=== PATIENT | female | born 1960 | race Caucasian/White ===

== ENCOUNTER 2023-06-13 10:03 | Outpatient (OUT) | payer MEDICARE, SELFPAY ==
--- NOTE | 2023-06-13 10:17 | XR_ITS ---
The [address] [address] Patient Name: MIGUEL ANGEL CAMERON MRN: [id number] date: 1960 Sex: F Assigned Patient Location: [facility] Current Patient Location: Accession/Order Number: [id number] Exam Date: 06/13/2023 10:28 Report Date: 06/14/2023 07:25 At the request of: SHANA MERCEDES Procedure: XR hip RT 2V w/ pelvis PROCEDURE: XR hip RT 2V w/ pelvis COMPARISON: None. HISTORY: Pain In Unspecified Hip M25.559 FINDINGS: BONES:No acute fracture or dislocation. Degenerative changes of the spine. Mild bilateral hip osteoarthropathy with joint space narrowing and marginal osteophyte formation, left greater than right SOFT TISSUES:Negative. No visible soft tissue swelling. EFFUSION:None visible. OTHER: Negative. XR/XR hip RT 2V w/ pelvis IMPRESSION: No acute abnormality Electronically authenticated by: SHANA WINTERS Date: 06/14/2023 07:25
== END 2023-06-13 10:04 | disposition home or self-care (01) ==
LOC: RAD 10:08
PROVIDERS: PCP Family Medicine; Visit Provider Family Medicine
DX: M25.551 Pain in right hip (principal)
CPT/HCPCS: 73502

== ENCOUNTER 2024-01-02 07:50 | Emergency (ER) | payer OTHER, SELFPAY ==
[2024-01-02 07:55] VITALS: BP 143/93; PULSE 80; TEMP 36.7; O2SAT 97; BMI 55.9
--- NOTE | 2024-01-02 08:55 | CT_ITS ---
The [address] [address] Patient Name: MIGUEL ANGEL CAMERON MRN: [id number] date: 1960 Sex: F Assigned Patient Location: ER Current Patient Location: ER Accession/Order Number: [id number] Exam Date: 01/02/2024 08:45 Report Date: 01/02/2024 09:08 At the request of: SHAHEEN BARNES Procedure: CT head/brain wo con EXAM: CT head/brain wo con, CT facial bones wo con HISTORY: fall last week, headache, nasal pain COMPARISON: CT head 05/27/2011. TECHNIQUE: Axial noncontrast CT imaging of the head and facial bones was performed with coronal and sagittal reformats. FINDINGS: Soft tissues: Unremarkable. Orbits: Globes intact. Bilateral alutiiq ocular lens replacements. No fractures or masses. Sinuses: Inferior right maxillary sinus mucosal retention cyst versus. Midface/nasal cavity: No fractures or masses. Moderate rightward nasal septal deviation with rightward projecting nasal septal spur which narrows the nasal passage. Maxilla/mandible: No fractures. Multiple dental caries are present. Periapical lucency involving multiple mandibular teeth. Maxillary teeth are absent. Calvarium/skull base: No evidence of acute fracture or destructive lesion. Mastoids and middle ears demonstrate no substantial mucosal disease. Brain: No acute intracranial hemorrhage. No acute large vascular territory infarct. No mass lesion or mass effect. No hydrocephalus. CT/CT head/brain wo con IMPRESSION: 1. No acute intracranial process. 2. No facial bone fracture. 3. Mandibular dental disease. Electronically authenticated by: SHIRA FERNANDES Date: 01/02/2024 09:08
--- NOTE | 2024-01-02 08:55 | CT_ITS ---
The [address] [address] Patient Name: MIGUEL ANGEL CAMERON MRN: [id number] date: 1960 Sex: F Assigned Patient Location: ER Current Patient Location: ER Accession/Order Number: [id number] Exam Date: 01/02/2024 08:45 Report Date: 01/02/2024 09:08 At the request of: SHAHEEN BARNES Procedure: CT facial bones wo con EXAM: CT head/brain wo con, CT facial bones wo con HISTORY: fall last week, headache, nasal pain COMPARISON: CT head 05/27/2011. TECHNIQUE: Axial noncontrast CT imaging of the head and facial bones was performed with coronal and sagittal reformats. FINDINGS: Soft tissues: Unremarkable. Orbits: Globes intact. Bilateral [place] ocular lens replacements. No fractures or masses. Sinuses: Inferior right maxillary sinus mucosal retention cyst versus. Midface/nasal cavity: No fractures or masses. Moderate rightward nasal septal deviation with rightward projecting nasal septal spur which narrows the nasal passage. Maxilla/mandible: No fractures. Multiple dental caries are present. Periapical lucency involving multiple mandibular teeth. Maxillary teeth are absent. Calvarium/skull base: No evidence of acute fracture or destructive lesion. Mastoids and middle ears demonstrate no substantial mucosal disease. Brain: No acute intracranial hemorrhage. No acute large vascular territory infarct. No mass lesion or mass effect. No hydrocephalus. CT/CT facial bones wo con IMPRESSION: 1. No acute intracranial process. 2. No facial bone fracture. 3. Mandibular dental disease. Electronically authenticated by: SHIRA FERNANDES Date: 01/02/2024 09:08
--- NOTE | 2024-01-02 08:56 | ED.GENADUL1 ---
HPI HPI - General Adult General Chief complaint: Extremity Injury, Upper Stated complaint: RIGHT ARM PAIN/HEADACHE Time Seen by Provider: 01/02/24 08:07 Source: patient Mode of arrival: walk-in History of Present Illness HPI narrative: 63-year-old female to the emergency department with chief complaint of pain throughout her right arm, facial pain/headache. Patient reports several days ago she had a fall. She was seen at [facility] ([place], [place]) and had a x-ray done of her left knee which was her chief complaint at that time. It was reported as normal. Since she's gone home she has had a severe headache, pain right between her eyes and in her nose. She reports that she has had pain in her right hand, wrist, elbow, shoulder since the fall. She is requesting imaging of these areas. She is otherwise at her baseline health. She denies any numbness, weakness, tingling, vision changes, chest pain, shortness of breath, abdominal pain, any other extremity pain. Related Data Previous Rx's ?Medication ?Instructions ?Recorded oxycodone 5 mg tablet 5 mg PO Q6H PRN pain 3 days #12 01/02/24 tabs Allergies Allergy/AdvReac Type Severity Reaction Status Date / Time acetaminophen [From Midol] Allergy Severe Verified 01/02/24 08:01 pamabrom [From Midol] Allergy Severe Verified 01/02/24 08:01 Penicillins Allergy Unknown Verified 01/02/24 08:01 Opioid HPI Opioid Management Most Recent Opioid Data: No Data to Display Review of Systems ROS Status of ROS 10 or more systems reviewed and unremarkable except as noted in history and below Exam Narrative Exam Narrative: VITALS: I have reviewed the triage vital signs. GENERAL: Well developed, well appearing adult in no acute distress. NEURO: Alert and oriented. Moves all extremities. Face is symmetric and expressive. EYES: PERRL. No scleral icterus or conjunctival injection. No discharge. HENT: Normocephalic, atraumatic. Hearing is grossly intact. Nares grossly patent and without discharge. Mucous membranes moist. NECK: No JVD. Patient moves neck without restriction. CARDIO: Rhythm regular. Normal rate. No murmur, rub, or gallop. Pulses equal bilaterally in the upper and lower extremity. No lower extremity edema. PULM: Lungs clear to auscultation in all villatoro. No wheezes, rales, or rhonchi. No conversational dyspnea. No splinting, stridor, or accessory muscle use. GI/: Abdomen is soft and non-tender. Normoactive bowel sounds. EXTREMITIES: Tenderness about the hyper thenar eminence of the right hand, right wrist, elbow, shoulder. No deformities. SKIN: Warm and dry. Normal turgor. No rash or lesions appreciated. PSYCH: Mood, affect, and interaction is appropriate to the setting. Constitutional Vital Signs, click to edit/add: Last Vital Signs Temp 98.0 F 01/02/24 07:55 Pulse 80 01/02/24 07:55 Resp 20 01/02/24 07:55 BP 143/93 H 01/02/24 07:55 Pulse Ox 97 01/02/24 07:55 O2 Del Method Room Air 01/02/24 07:55 Course Vital Signs Vital signs: Vital Signs Temperature 98.0 F 01/02/24 07:55 Pulse Rate 80 01/02/24 07:55 Respiratory Rate 20 01/02/24 07:55 Blood Pressure 143/93 H 01/02/24 07:55 Pulse Oximetry 97 01/02/24 07:55 Oxygen Delivery Method Room Air 01/02/24 07:55 Temperature 98.0 F 01/02/24 07:55 Pulse Rate 80 01/02/24 07:55 Respiratory Rate 20 01/02/24 07:55 Blood Pressure 143/93 H 01/02/24 07:55 Pulse Oximetry 97 01/02/24 07:55 Oxygen Delivery Method Room Air 01/02/24 07:55 Medical Decision Making [facility] Narrative Medical decision making narrative: 63-year-old female to the emergency department with chief complaint of severe headache, facial pain, right arm pain after fall. Cervical spine is cleared clinically however given the severe symptoms she continues to experience order CT scan of her head and facial bones. X-ray of the arm is ordered. She declines pain medication. Reports uses only natural medications, namely wild lettuce . CT head and facial bones are negative. X-rays without acute fracture. 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 I discussed findings with patient. She reports right shoulder findings are chronic for her. She is given orthopedic referral for this chronic discomfort/abnormal finding. She does not wish to sling. She is prescribed oxycodone for her discomfort should she not be able to obtain her natural medications. All questions were answered. Patient was discharged home. Medical Records Medical records reviewed: Yes I reviewed the patient's medical records Imaging Data CT scan - head: Radiologist's impression: ITS Impressions Facial Bones CT 01/02/24 08:55 IMPRESSION: 1. No acute intracranial process. 2. No facial bone fracture. 3. Mandibular dental disease. Electronically authenticated by: SHIRA FERNANDES Date: 01/02/2024 09:[address] 01/02/24 08:55 IMPRESSION: 1. No acute intracranial process. 2. No facial bone fracture. 3. Mandibular dental disease. Electronically authenticated by: SHIRA FERNANDES Date: 01/02/2024 09:08 Elbow X-Ray 01/02/24 09:14 IMPRESSION: Moderate shoulder joint effusion displacing the humeral head inferiorly without definitive fracture or dislocation. If an occult fracture is clinically suspected consider dedicated CT scan of the shoulder No acute fracture of the elbow, wrist or hand Electronically authenticated by: SHANA WINTERS Date: 01/02/2024 09:28 Hand X-Ray 01/02/24 09:14 IMPRESSION: Moderate shoulder joint effusion displacing the humeral head inferiorly without definitive fracture or dislocation. If an occult fracture is clinically suspected consider dedicated CT scan of the shoulder No acute fracture of the elbow, wrist or hand Electronically authenticated by: SHANA WINTERS Date: 01/02/2024 09:28 Shoulder X-Ray 01/02/24 09:14 IMPRESSION: Moderate shoulder joint effusion displacing the humeral head inferiorly without definitive fracture or dislocation. If an occult fracture is clinically suspected consider dedicated CT scan of the shoulder No acute fracture of the elbow, wrist or hand Electronically authenticated by: SHANA WINTERS Date: 01/02/2024 09:28 Wrist X-Ray 01/02/24 09:14 IMPRESSION: Moderate shoulder joint effusion displacing the humeral head inferiorly without definitive fracture or dislocation. If an occult fracture is clinically suspected consider dedicated CT scan of the shoulder No acute fracture of the elbow, wrist or hand Electronically authenticated by: SHANA WINTERS Date: 01/02/2024 09:28 Discharge Plan Discharge Stand Alone Forms: Portal Instructions Chief Complaint: Extremity Injury, Upper Clinical Impression: Concussion, Contusion Patient Disposition: Home, Self-Care Time of Disposition Decision: 10:05 Condition: Good Mode of Transportation: Private Vehicle Prescriptions / Home Meds: New oxycodone 5 mg tablet 5 mg PO Q6H PRN (Reason: pain) 3 Days Qty: 12 0RF Print Language: St Helenian Instructions: Concussion (ED), Bone Bruise (ED) Referrals: SHANA MERCEDES [Primary Care Provider] - 1 week Stephen Jackson MD [Physician] - 1 week
--- NOTE | 2024-01-02 09:14 | XR_ITS ---
The [address] [address] Patient Name: MIGUEL ANGEL CAMERON MRN: [id number] date: 1960 Sex: F Assigned Patient Location: ER Current Patient Location: ER Accession/Order Number: [id number] Exam Date: 01/02/2024 08:57 Report Date: 01/02/2024 09:28 At the request of: SHAHEEN BARNES Procedure: XR hand RT min 3V PROCEDURE: XR hand RT min 3V, XR elbow RT min 3V, XR wrist RT min 3V, XR shoulder RT min 2V COMPARISON: None. HISTORY: pain, fall FINDINGS: BONES:No acute fracture of the shoulder, elbow, wrist or hand. Severe degenerative changes at the first carpometacarpal joint with bone collapse and marginal osteophyte formation. Additional mild to moderate degenerative changes most significant along the first metacarpal phalangeal joint and distal interphalangeal joints. Low position of the humeral head in relation to the glenoid without definite fracture. Mild osteoarthropathy of acromioclavicular and glenohumeral joints SOFT TISSUES:Negative. No visible soft tissue swelling. EFFUSION:Moderate shoulder joint effusion OTHER: Negative. XR/XR hand RT min 3V IMPRESSION: Moderate shoulder joint effusion displacing the humeral head inferiorly without definitive fracture or dislocation. If an occult fracture is clinically suspected consider dedicated CT scan of the shoulder No acute fracture of the elbow, wrist or hand Electronically authenticated by: SHANA WINTERS Date: 01/02/2024 09:28
--- NOTE | 2024-01-02 09:14 | XR_ITS ---
The [address] [address] Patient Name: MIGUEL ANGEL CAMERON MRN: [id number] date: 1960 Sex: F Assigned Patient Location: ER Current Patient Location: ER Accession/Order Number: [id number] Exam Date: 01/02/2024 08:57 Report Date: 01/02/2024 09:28 At the request of: SHAHEEN BARNES Procedure: XR shoulder RT min 2V PROCEDURE: XR hand RT min 3V, XR elbow RT min 3V, XR wrist RT min 3V, XR shoulder RT min 2V COMPARISON: None. HISTORY: pain, fall FINDINGS: BONES:No acute fracture of the shoulder, elbow, wrist or hand. Severe degenerative changes at the first carpometacarpal joint with bone collapse and marginal osteophyte formation. Additional mild to moderate degenerative changes most significant along the first metacarpal phalangeal joint and distal interphalangeal joints. Low position of the humeral head in relation to the glenoid without definite fracture. Mild osteoarthropathy of acromioclavicular and glenohumeral joints SOFT TISSUES:Negative. No visible soft tissue swelling. EFFUSION:Moderate shoulder joint effusion OTHER: Negative. XR/XR shoulder RT min 2V IMPRESSION: Moderate shoulder joint effusion displacing the humeral head inferiorly without definitive fracture or dislocation. If an occult fracture is clinically suspected consider dedicated CT scan of the shoulder No acute fracture of the elbow, wrist or hand Electronically authenticated by: SHANA WINTERS Date: 01/02/2024 09:28
--- NOTE | 2024-01-02 09:14 | XR_ITS ---
The [address] [address] Patient Name: MIGUEL ANGEL CAMERON MRN: [id number] date: 1960 Sex: F Assigned Patient Location: ER Current Patient Location: ER Accession/Order Number: [id number] Exam Date: 01/02/2024 08:57 Report Date: 01/02/2024 09:28 At the request of: SHAHEEN BARNES Procedure: XR elbow RT min 3V PROCEDURE: XR hand RT min 3V, XR elbow RT min 3V, XR wrist RT min 3V, XR shoulder RT min 2V COMPARISON: None. HISTORY: pain, fall FINDINGS: BONES:No acute fracture of the shoulder, elbow, wrist or hand. Severe degenerative changes at the first carpometacarpal joint with bone collapse and marginal osteophyte formation. Additional mild to moderate degenerative changes most significant along the first metacarpal phalangeal joint and distal interphalangeal joints. Low position of the humeral head in relation to the glenoid without definite fracture. Mild osteoarthropathy of acromioclavicular and glenohumeral joints SOFT TISSUES:Negative. No visible soft tissue swelling. EFFUSION:Moderate shoulder joint effusion OTHER: Negative. XR/XR elbow RT min 3V IMPRESSION: Moderate shoulder joint effusion displacing the humeral head inferiorly without definitive fracture or dislocation. If an occult fracture is clinically suspected consider dedicated CT scan of the shoulder No acute fracture of the elbow, wrist or hand Electronically authenticated by: SHANA WINTERS Date: 01/02/2024 09:28
--- NOTE | 2024-01-02 09:14 | XR_ITS ---
The [address] [address] Patient Name: MIGUEL ANGEL CAMERON MRN: [id number] date: 1960 Sex: F Assigned Patient Location: ER Current Patient Location: ER Accession/Order Number: [id number] Exam Date: 01/02/2024 08:57 Report Date: 01/02/2024 09:28 At the request of: SHAHEEN BARNES Procedure: XR wrist RT min 3V PROCEDURE: XR hand RT min 3V, XR elbow RT min 3V, XR wrist RT min 3V, XR shoulder RT min 2V COMPARISON: None. HISTORY: pain, fall FINDINGS: BONES:No acute fracture of the shoulder, elbow, wrist or hand. Severe degenerative changes at the first carpometacarpal joint with bone collapse and marginal osteophyte formation. Additional mild to moderate degenerative changes most significant along the first metacarpal phalangeal joint and distal interphalangeal joints. Low position of the humeral head in relation to the glenoid without definite fracture. Mild osteoarthropathy of acromioclavicular and glenohumeral joints SOFT TISSUES:Negative. No visible soft tissue swelling. EFFUSION:Moderate shoulder joint effusion OTHER: Negative. XR/XR wrist RT min 3V IMPRESSION: Moderate shoulder joint effusion displacing the humeral head inferiorly without definitive fracture or dislocation. If an occult fracture is clinically suspected consider dedicated CT scan of the shoulder No acute fracture of the elbow, wrist or hand Electronically authenticated by: SHANA WINTERS Date: 01/02/2024 09:28
== END 2024-01-02 10:21 | disposition home or self-care (01) ==
PROVIDERS: Emergency Provider Student in an Organized Health Care Education/Training Program; PCP Family Medicine
DX: S06.0X0A Concussion without loss of consciousness, initial encounter (principal); T14.8XXA Other injury of unspecified body region, initial encounter; W19.XXXA Unspecified fall, initial encounter
CPT/HCPCS: 70450; 70486; 73030; 73080; 73110; 73130; 99285

== ENCOUNTER 2024-01-17 12:22 | Outpatient (OUT) | payer OTHER, SELFPAY ==
--- NOTE | 2024-01-17 12:26 | MR_ITS ---
[address] [address] Patient Name: MIGUEL ANGEL CAMERON MRN: [id number] date: 1960 Sex: F Assigned Patient Location: MRI Current Patient Location: MRI Accession/Order Number: [id number] Exam Date: 01/17/2024 13:14 Report Date: 01/17/2024 15:34 At the request of: SANJEEV CAMARILLO Procedure: MR knee LT wo con EXAMINATION: MR knee LT wo con HISTORY: left knee pain, unspecified chronicity M25.562 COMPARISON: No relevant comparison available. TECHNIQUE: A complete multi-planar MRI was performed. FINDINGS: MEDIAL COMPARTMENT MEDIAL MENISCUS: Suspect an oblique tear extending into the inferior surface of the posterior horn. Extrusion of the body of the meniscus from the joint space. CARTILAGE: Moderate thinning; no focal defect. BONES: Small periarticular degenerative osteophytes. No fracture or bone lesion. MCL AND MEDIAL CAPSULE: Grade I sprain of the medial collateral ligament. LATERAL COMPARTMENT LATERAL MENISCUS: Extrusion of the body meniscus from the joint space. CARTILAGE: Moderate thinning; no focal defect. BONES: Prominent periarticular degenerative osteophytes. No fracture or bone lesion. LCL/POSTEROLAT COMPLEX: Normal lateral collateral ligament, fascicles, lateral capsule and ligaments. ANTERIOR COMPARTMENT PATELLA: Mild subchondral edema near superior pole of the lateral facet. CARTILAGE: Marked cartilage thinning with near [id number] contact. TENDONS: Normal. EFFUSION: None. No synovitis or loose bodies. ACL: Normal appearing ligament. PCL: Normal appearing ligament. MENISCOFEMORAL: Normal meniscofemoral ligaments. OTHER: Large Looney's cyst 7.8 cm in length. MR/MR knee LT wo con IMPRESSION: 1. Limited examination due to patient body habitus. 2. Suspect oblique undersurface tear of medial meniscus posterior horn. 3. Joint space thinning bilaterally secondary to extrusion of the menisci from the joint spaces and moderate cartilage thinning. 4. Marked cartilage thinning of the patella with marked subchondral edema. 5. Large Looney's cyst. Electronically authenticated by: SANJEEV ALMANZA Date: 01/17/2024 15:34
== END 2024-01-17 12:23 | disposition home or self-care (01) ==
LOC: MRI 12:22
PROVIDERS: PCP Family Medicine; Visit Provider Orthopaedic Surgery
DX: M25.562 Pain in left knee (principal); M71.22 Synovial cyst of popliteal space [Baker], left knee
CPT/HCPCS: 73721

== ENCOUNTER 2024-09-06 12:46 | Emergency (ER) | payer OTHER, SELFPAY ==
[2024-09-06 12:54] VITALS: BP 138/86; PULSE 86; TEMP 36.6; O2SAT 97; BMI 58.4
--- OUTSIDE RECORDS SUMMARY | 2024-09-06 12:57 | XMS_ITS | CCD ---
Author Organization [facility] Care Team Providers Care Substance Abuse Specialist Name Role Phone Shana Mercedes Unavailable Shana Mercedes Admitting Unavailable Shana Mercedes Attending Unavailable Mago, Shana Primary Care Unavailable Mago, Shana Admitting Unavailable Mago, Shana Attending Unavailable MAGO, DR SALDANA Primary Care Unavailable CAMI, DR SANJEEV Rivera Consulting Unavailable SAMSA ., CRISTINE Admitting Unavailable SAMSA ., CRISTINE Attending Unavailable SAMSA ., CRISTINE Consulting Unavailable SAMSA ., CRISTINE Attending Unavailable MAGO, DR SALDANA Primary Care Unavailable SAMSA ., CRISTINE Admitting Unavailable SAMSA ., CRISTINE Consulting Unavailable MAGO, DR SALDANA Admitting Unavailable MAGO, DR SALDANA Primary Care Unavailable MAGO, DR SALDANA Consulting Unavailable MAGO, DR SALDANA Attending Unavailable SINGH, DR SHANA Anders Consulting Unavailable MAGO, DR SALDANA Primary Care Unavailable ANNELIESE ., HIRA Admitting Unavailable ANNELIESE ., HIRA Attending Unavailable ANNELIESE ., HIRA Consulting Unavailable SHANA MERCEDES Primary Care Unavailable VALENTIN VIRGEN Attending Unavailable VALENTIN VIRGEN Referring Unavailable SHANA MERCEDES Primary Care Unavailable Allergies Allergy Classification Reported Allergen(s) Allergy Type Date of Onset Reaction(s) Facility (20 sources) Acetaminophen Drug Allergy 01-04-20 24 throat swelling [facility] (17 sources) cat dander allergenic extract / cat skin extract Drug Allergy Unknown [employer] Other (17 sources) dog skin extract Drug Allergy Unknown [employer] Other (20 sources) Doxycycline; Translations: [DOXYCYCLINE] Drug Allergy 12-08-19 17 vomiting [facility] (17 sources) horse skin extract Drug Allergy Unknown [facility] [employer] Other (17 sources) Mushroom (edible) Propensity to adverse reactions GI upset [employer] Other (17 sources) Penicillin Drug Allergy vomiting [facility] [employer] Other (12 sources) Budesonide / formoterol Drug Allergy pt does not feel this worked well for her [facility] [employer] Other (5 sources) Penicillins; Translations: [PENICILLINS] Drug allergy (disorder) 03-03-20 13 vomiting [facility] (1 source) Midol Drug allergy (disorder) 03-03-20 13 [facility] (1 source) Acetaminophen / pamabrom; Translations: [ACETAMINOPHEN-PA MABROM] Drug Allergy 12-08-19 17 [facility] (4 sources) Mushroom (edible); Translations: [MUSHROOM] Propensity to adverse reactions to food (disorder) 01-14-20 17 GI upset [facility] (1 source) CAT/FELINE PRODUCTS; Translations: [CAT/FELINE PRODUCTS] Propensity to adverse reactions to drug (disorder) 01-14-20 17 [facility] (1 source) DOG HAIR STANDARDIZED ALLERGENIC EXTRACT; Translations: [DOG HAIR STANDARDIZED ALLERGENIC EXTRACT] Propensity to adverse reactions to drug (disorder) 01-14-20 17 [facility] (3 sources) Budesonide Drug Allergy 01-04-20 24 pt does not feel this worked well for her [facility] (3 sources) formoterol Drug Allergy 01-04-20 24 pt does not feel this worked well for her [facility] (3 sources) pamabrom Drug Allergy 01-04-20 24 throat swelling [facility] (3 sources) cat dander Allergy to substance 01-04-20 24 Unknown Reaction [facility] (3 sources) dog dander Allergy to substance 01-04-20 24 Unknown Reaction [facility] (3 sources) horse dander Allergy to substance 01-04-20 24 Unknown Reaction [facility] Medications Current Medications Medication Drug Class(es) Dates Sig (Normalized) Sig (Original) albuterol 0.83 mg/ml inhalation solution (20 sources) beta2-Adrenergic Agonist Start: 05-04-2024 Albuterol Sulfate Active 0 .ROUTE .COMPLEX 375 May 04, 2024 8:05am USE 1 VIAL IN NEBULIZER EVERY 4 HOURS NEEDED Start: 02-13-2024 take 1 puff(s) by in halation every four hours Albuterol Sulfate Active 2 PUFF INHALATION Every 4 hours February 13, 2024 3:45pm Start: 02-13-2024 End: 05-04-2024 Albuterol Sulfate Discontinu ed 2.5 MG INHALATION .COMPLEX February 13, 2024 3:44pm May 04, 2024 8:05am 2.5 mg inhaled PRN; Start: 01-04-2024 End: 02-13-2024 take 2 puff(s) by mouth every four hours as needed Albuterol Sulfate Discontinued 2 PUFF INHALATION Every 4 hours January 03, 2024 11:00pm February 13, 2024 3:48pm [employer]: INHALE 2 PUFFS BY MOUTH EVERY 4 HOURS NEEDED; Note: Source Status: Continue; Provider: Mago Saldana ( ) Start: 11-22-2023 End: 02-13-2024 Albuterol Sulfate Discontinu ed 0 .ROUTE .COMPLEX 375 November 22, 2023 1:34pm February 13, 2024 3:44pm USE 1 VIAL IN NEBULIZER EVERY 4 HOURS NEEDED Start: 11-22-2023 End: 11-22-2023 Albuterol Sulfate Discontinu ed 0 CNTNEBULIZ .Q4 hrs prn November 21, 2023 11:00pm November 22, 2023 1:35pm use 1 vial in nebulizer via continuous nebulization Q4 HRS PRN; FreeTextSig: USE 1 VIAL IN NEBULIZER EVERY 4 HOURS NEEDED; Note: Source Status: Start; Refills: 5; Qty: 375 Milliliter; Provider: Mago Saldana ( ) Albuterol Sulfat e (2.5 MG/3ML) 0.083% USE 1 VIAL IN NEBULIZER EVERY 4 HOURS NEEDED for 21 Active take 2 puff(s) by mo ut every four hours as needed Albuterol Sulfate HFA 108 (90 Base) MCG/ACT INHALE 2 PUFFS BY MOUTH EVERY 4 HOURS NEEDED Active Albuterol Sulfat e (2.5 MG/3ML) 0.083% USE 1 VIAL IN NEBULIZER EVERY 4 HOURS NEEDED for 21 Active take 2 puff(s) by mo uth every four hours as needed Albuterol Sulfate HFA 108 (90 Base) MCG/ACT INHALE 2 PUFFS BY MOUTH EVERY 4 HOURS NEEDED Active take 2 puff(s) by mo uth every four hours as needed Albuterol Sulfate HFA 108 (90 Base) MCG/ACT INHALE 2 PUFFS BY MOUTH EVERY 4 HOURS NEEDED Active take 3 mL by inhalat ion every four hours as needed Albuterol Sulfate 0.083% 3 ml Inhalation q4 hrs prn prn Active take 3 mL by inhalat ion every four hours as needed Albuterol Sulfate 0.083% 3 ml Inhalation q4 hrs prn Not-Taking take 2 puff(s) by mo uth every four hours as needed Ventolin HFA 108MCG/A INHALE TWO PUFFS BY MOUTH EVERY 4 HOURS NEEDED Active take 3 mL by inhalat ion every four hours as needed Albuterol Sulfate 0.083% 3 ml Inhalation q4 hrs prn Active aspirin 81 mg delayed release oral tablet (3 sources) Platelet Aggregation Inhibitor, Nonsteroidal Anti-inflammatory Drug Start: 07-29-2021 take 1 tablet by mouth once daily at mealtime Aspirin EC 81 MG 1 tablet Orally qd with food Jul, Active Start: 07-29-2021 take 1 tablet by pastor once daily at mealtime Aspirin EC 81 MG 1 tablet Orally qd with food Jul, Not-Taking azithromycin 250 mg oral tablet (7 sources) Macrolide Antimicrobial Start: 09-07-2022 Azithromycin 250 MG 2 tablets on day 1 Orally then take 1 tablet daily on days 2-5 for 5 days Oct, Active Start: 05-12-2022 Azithromycin 2 50 MG 2 tablets on day 1 Orally then take 1 tablet daily on days 2-5 for 5 days Apr, Not-Taking Calcium & Magnesium Carbonates (14 sources) Calcium & Magnes ium Carbonates Active celecoxib 200 mg oral capsule (20 sources) Nonsteroidal Anti-inflammatory Drug Start: take 1 capsule by mouth once daily at mealtime Celecoxib Active 0 .ROUTE .COMPLEX March 30, 2024 7:19am TAKE 1 CAPSULE BY MOUTH ONCE DAILY WITH FOOD Start: 01-04-2024 End: 03-30-2024 take 200 mg by mouth once daily Celecoxib Discontinued 200 MG PO Daily February 13, 2024 3:45pm March 30, 2024 7:19am take 1 capsule by mo uth once daily at mealtime Celecoxib 200 MG TAKE 1 CAPSULE BY MOUTH ONCE DAILY WITH FOOD for 30 days Active cephalexin 500 mg oral capsule (3 sources) Cephalosporin Antibacterial Start: 07-17-2024 take 500 mg by mouth three times daily Cephalexin Active 500 MG PO Three times daily 01 04July 17, 2024 12:00am Start: 08-10-2022 take 2 capsules by m outh every twelve hours Cephalexin 500 MG 2 capsules Orally bid Jul, Active furosemide 20 mg oral tablet (20 sources) Loop Diuretic Start: 02-21-2024 End: 07-17-2024 take 1 tablet by mouth once daily Furosemide Active 0 .ROUTE .COMPLEX July 17, 2024 4:08pm Take 1 tablet by mouth once daily Start: 01-04-2024 End: 02-21-2024 take 1 tablet by mouth once daily Furosemide Discontinued 20 MG PO Daily January 03, 2024 11:00pm February 21, 2024 12:06pm FreeTextSig: Take 1 tablet by mouth once daily for 30 days; Note: Source Status: Start; Refills: 5; Qty: 30 Tablet; Provider: Mago Saldana ( ) Start: 07-29-2021 take 1 tablet by pastor th every twenty-four hours Lasix 20 MG 1 tablet Orally Once a day prn Jul, Active levothyroxine sodium 0.1 mg oral tablet (20 sources) l-Thyroxine Start: 01-04-2024 End: 02-13-2024 take 1 tablet by mouth in the morning Levothyroxine Active 100 MCG PO .COMPLEX February 13, 2024 3:45pm 100 mcg orally TAKE 1 TABLET BY MOUTH IN THE MORNING ON AN EMPTY STOMACH; Levothyroxine So dium 100 MCG TAKE 1 TABLET BY MOUTH IN THE MORNING ON AN EMPTY STOMACH FOR 90 DAYS for 90 days Active take 1 tablet by mouth in the mo rning Euthyrox 100 MCG TAKE 1 TABLET BY MOUTH IN THE MORNING ON AN EMPTY STOMACH for 90 days Active take 1 tablet by mouth in the mo rning Euthyrox 112 MCG TAKE 1 TABLET BY MOUTH IN THE MORNING ON AN EMPTY STOMACH Active nitrofurantoin, macrocrystals 25 mg / nitrofurantoin, monohydrate 75 mg oral capsule (5 sources) Nitrofuran Antibacterial Start: 10-17-2020 take 1 capsule by mouth twice daily at mealtime Macrobid 100 MG 1 capsule Orally bid with food for 7 days Nov, Active omeprazole 20 mg delayed release oral capsule (20 sources) Proton Pump Inhibitor Start: 02-21-2024 take 1 capsule by mouth once daily at mealtime Omeprazole Active 0 .ROUTE .COMPLEX February 21, 2024 12:04pm TAKE 1 CAPSULE BY MOUTH ONCE DAILY 15 MINUTES PRIOR TO THE FIRST MEAL OF THE DAY Start: 01-04-2024 End: 02-21-2024 take 1 capsule by mouth once daily at mealtime Omeprazole Discontinued 20 MG PO .COMPLEX February 13, 2024 3:46pm February 21, 2024 12:06pm 20 mg orally TAKE 1 CAPSULE BY MOUTH ONCE DAILY 15 MINUTES PRIOR TO THE FIRST MEAL OF THE DAY Omeprazole 20 MG TAKE 1 CAPSULE BY MOUTH ONCE DAILY 15 MINUTES PRIOR TO THE FIRST MEAL OF THE DAY. for 30 Active oxyCODONE hydrochloride 5 mg oral tablet (5 sources) Opioid Agonist Start: 04-23-2024 End: 07-17-2024 take 5 mg by mouth once daily at bedtime Oxycodone Active 5 MG PO Daily at bedtime 14 July 17, 2024 Start: 01-04-2024 End: 02-13-2024 take 5 mg by mouth once daily at bedtime Oxycodone Discontinued 5 MG PO Daily at bedtime January 04, 2024 February 13, 2024 3:44pm microencapsulated potassium chloride 10 meq extended release oral tablet (20 sources) Start: 07-17-2024 take 2 tablets by mouth once daily, then take 10 tablets by mouth at mealtime Potassium Chloride Active 0 PO Daily 60 July 17, 2024 4:06pm Take 2 of the 10 MEQ tablets by mouth with food Start: 06-18-2024 End: 07-17-2024 take 1 tablet by mouth once daily at mealtime Potassium Chloride Discontinued 0 .ROUTE .COMPLEX July 02, 2024 9:15am July 17, 2024 4:09pm Take 1 tablet by mouth once daily with food Start: 02-21-2024 End: 06-18-2024 take 1 tablet by mouth once daily at mealtime Potassium Chloride Discontinued 0 .ROUTE .COMPLEX February 21, 2024 12:06pm June 18, 2024 10:48am Take 1 tablet by mouth once daily with food Start: 01-04-2024 End: 02-21-2024 take 1 tablet by mouth once daily at mealtime Potassium Chloride Discontinued 10 MEQ PO Daily February 13, 2024 3:49pm February 21, 2024 12:06pm TAKE 1 TABLET BY MOUTH ONCE DAILY WITH FOOD FOR 30 DAY Start: 07-29-2021 take 1 tablet by pastor th every twenty-four hours Klor-Con M10 10 MEQ 1 tablet with food Orally qd prn Jul, Active take 1 tablet by pastor th once daily at mealtime Potassium Chloride Isabel ER 10 MEQ TAKE 1 TABLET BY MOUTH ONCE DAILY WITH FOOD FOR 30 DAYS for 30 Active quercetin 250 mg oral tablet (7 sources) Quercetin 250 MG 1 tablet Orally prn Active Quercetin 250 MG 1 tablet Orally prn Active tiZANidine 4 mg oral tablet (20 sources) Central alpha-2 Adrenergic Agonist Start: 05-01-2024 Tizanidine Active 0 .ROUTE .COMPLEX May 01, 2024 10:34am TAKE 1 TABLET BY MOUTH EVERY 8 TO 12 HOURS NEEDED FOR 10 DAYS Start: 01-04-2024 End: 05-01-2024 Tizanidine Discontinued 4 MG PO .Q 8-12h February 13, 2024 3:37pm May 01, 2024 10:34am TAKE 1 TABLET BY MOUTH EVERY 8 TO 12 HOURS NEEDED FOR 10 DAYS tiZANidine HCl 4 MG TAKE 1 TABLET BY MOUTH EVERY 8 TO 12 HOURS NEEDED FOR 10 DAYS for 10 Active Completed/Discontinued Medications Medication Drug Class(es) Dates Sig (Normalized) Sig (Original) 24 hr dilTIAZem hydrochloride 120 mg extended release oral capsule (3 sources) Calcium Channel Brinda Start: 07-29-2021 take 1 capsule by mouth every twenty-four hours Cardizem CD 120 MG 1 capsule Orally Once a day Jul, Not-Taking 24 hr isosorbide mononitrate 30 mg extended release oral tablet (3 sources) Nitrate Vasodilator Start: 07-29-2021 take 1 tablet by mouth every twenty-four hours Isosorbide Mononitrate ER 30 MG 1 tablet in the morning Orally Once a day Jul, Not-Taking pravastatin sodium 10 mg oral tablet (17 sources) HMG-CoA Reductase Inhibitor Start: 07-20-2016 take 1 tablet by mouth once daily at bedtime Pravastatin Sodium 10 MG 1 tablet Orally qd hs for 30 day(s) Jul, Not-Taking/PRN predniSONE 20 mg oral tablet (2 sources) Start: 09-07-2022 predniSONE 20 MG take 3 tablets Orally x3 days, then 2 tabs x3 days then 1 tab a day x3 days then take 1/2 tablet x4 days with food or milk for 13 days Aug, Not-Taking Problems Active Problems Problem Classification Problem Date Documented Da te Episodic/Chronic Abdominal pain (1 source) Unspecified abdominal pain Episodic Asthma (20 sources) Asthma; Translations: [Unspecified asthma, uncomplicated] Onset: 1 Resolved: 2 Chronic Attention-deficit, conduct, and disruptive behavior disorders (17 sources) Attention deficit hyperactivity disorder; Translations: [Attention-deficit hyperactivity disorder, unspecified type] Chronic Disorders of lipid metabolism (19 sources) Hyperlipidemia; Translations: [Hyperlipidemia, unspecified] Onset: 1 Resolved: 2 Chronic E Codes: Fall (5 sources) Fall; Translations: [Unspecified fall, initial encounter] 01-04-2024 Episodic E Codes: Fall (1 source) Fall Onset: 4 Esophageal disorders (19 sources) Gastroesophageal reflux disease; Translations: [Gastro-esophageal reflux disease without esophagitis] Onset: 1 Resolved: 2 Chronic Fever of unknown origin (1 source) Fever, unspecified Episodic Genitourinary symptoms and ill-defined conditions (20 sources) Incontinence; Translations: [Unspecified urinary incontinence] Onset: 2 Resolved: 2 Chronic Genitourinary symptoms and ill-defined conditions (6 sources) Nocturia; Translations: [Frequency of micturition] Onset: 1 Resolved: 2 Episodic Intracranial injury (5 sources) Concussion injury of body structure; Translations: [Concussion] 01-04-2024 Episodic Open wounds of head; neck; and trunk (2 sources) Laceration - injury; Translations: [Laceration] 07-17-2024 Episodic Other connective tissue disease (1 source) Pain in left arm Episodic Other connective tissue disease (3 sources) Pain in left lower limb; Translations: [Pain in left leg] 01-04-2024 Episodic Other connective tissue disease (2 sources) Pain in left leg; Translations: [Pain in limb] 01-04-2024 Episodic Other connective tissue disease (2 sources) Synovial cyst of knee; Translations: [Synovial cyst of popliteal space [Looney], unspecified knee] 02-13-2024 Episodic Other connective tissue disease (1 source) Synovial cyst of popliteal space [Looney], unspecified knee; Translations: [Synovial cyst of popliteal space] 02-13-2024 Episodic Other gastrointestinal disorders (17 sources) Incontinence of feces; Translations: [Full incontinence of feces] Episodic Other lower respiratory disease (17 sources) Restrictive lung disease; Translations: [Other disorders of lung] Episodic Other lower respiratory disease (17 sources) Multiple nodules of lung; Translations: [Other nonspecific abnormal finding of lung field] Episodic Other nervous system disorders (14 sources) Ulnar nerve entrapment; Translations: [Lesion of ulnar nerve, 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 Other nervous system disorders (14 sources) Skin sensation disturbance; Translations: [Paresthesia of skin] Episodic Other non-traumatic joint disorders (2 sources) Pain in left shoulder Episodic Other non-traumatic joint disorders (1 source) Pain in unspecified hip Episodic Other non-traumatic joint disorders (7 sources) Knee pain; Translations: [Pain in unspecified knee] Onset: 4 01-04-2024 Episodic Other non-traumatic joint disorders (3 sources) Shoulder pain; Translations: [Pain in unspecified shoulder] 01-04-2024 Episodic Other non-traumatic joint disorders (2 sources) Pain in unspecified shoulder; Translations: [Pain in joint, shoulder region] 01-04-2024 Episodic Other nutritional; endocrine; and metabolic disorders (1 source) Obesity, unspecified; Translations: [OBESITY UNSPECIFIED] Onset: 2 Chronic Other nutritional; endocrine; and metabolic disorders (1 source) Body mass index (BMI) 50.0-59.9, adult; Translations: [BODY MASS INDEX BMI 50.0-59.9 ADULT] Onset: 2 Chronic Other nutritional; endocrine; and metabolic disorders (2 sources) Abnormal weight gain Onset: 2 Resolved: 2 Episodic Other screening for suspected conditions (not mental disorders or infectious disease) (3 sources) Encounter for screening mammogram for malignant neoplasm of breast; Translations: [Patient encounter status] Onset: 1 Resolved: 1 Episodic Other upper respiratory disease (17 sources) Rhinitis; Translations: [Chronic rhinitis] Chronic Other upper respiratory infections (2 sources) Acute sinusitis, unspecified Onset: 2 Resolved: 2 Episodic Residual codes; unclassified (5 sources) Edema, unspecified; Translations: [Edema] Onset: 1 Resolved: 2 Episodic Residual codes; unclassified (3 sources) Edema; Translations: [Edema, unspecified] 01-04-2024 Episodic Skin and subcutaneous tissue infections (2 sources) Cellulitis; Translations: [Cellulitis, unspecified] 07-17-2024 Episodic Superficial injury; contusion (1 source) Contusion of left knee, initial encounter; Translations: [Contusion of left knee, initial encounter] Onset: 4 Episodic Thyroid disorders (20 sources) Hypothyroidism; Translations: [Hypothyroidism, unspecified] Onset: 1 Resolved: 2 Chronic Unclassified (1 source) N30.90 - Cystitis, unspecified without hematuria; Translations: [N30.90 - Cystitis, unspecified without hematuria] Onset: 2 Unclassified (3 sources) LOW BACK PAIN, UNSPECIFIED; Translations: [LOW BACK PAIN, UNSPECIFIED] Onset: 2 Unclassified (1 source) Fall, Knee Pain Onset: 4 Past or Other Problems Problem Classification Problem Date Documented Da te Episodic/Chronic Headache; including migraine (1 source) Headache; including migraine Onset: 05-12-2022 Resolved: 05-12-2022 Malaise and fatigue (1 source) Other fatigue Onset: 11-17-2021 Resolved: 11-17-2021 Episodic Nonspecific chest pain (1 source) Chest pain, unspecified Onset: 07-29-2021 Resolved: 07-29-2021 Episodic Other aftercare (2 sources) Other predatory animal exterminator (current) drug therapy Onset: 07-29-2021 Resolved: 01-28-2022 Episodic Other and unspecified benign neoplasm (1 source) Melanocytic nevi, unspecified Onset: 11-17-2021 Resolved: 11-17-2021 Episodic Other connective tissue disease (1 source) Pain in right arm Onset: 07-29-2021 Resolved: 07-29-2021 Episodic Other lower respiratory disease (5 sources) Other nonspecific abnormal finding of lung field; Translations: [OTH NONSPECIFIC ABN FIND LNG FIELD] Onset: 05-12-2022 Resolved: 05-12-2022 Episodic Other non-traumatic joint disorders (1 source) Pain in right shoulder Onset: 01-28-2022 Resolved: 01-28-2022 Episodic Other nutritional; endocrine; and metabolic disorders (1 source) Abnormal weight loss Onset: 07-29-2021 Resolved: 07-29-2021 Episodic Spondylosis; intervertebral disc disorders; other back problems (3 sources) Cervicalgia Onset: 07-29-2021 Resolved: 04-23-2022 Episodic Unclassified (2 sources) Cough R05.9 Unclassified (1 source) LOW BACK PAIN, UNSPECIFIED; Translations: [LOW BACK PAIN, UNSPECIFIED] Onset: 07-08-2022 Urinary tract infections (2 sources) Cystitis, unspecified without hematuria; Translations: [Urinary tract infection, site not specified] Onset: 11-17-2021 Resolved: 11-17-2021 Episodic Results Test Name Value Interpretation Reference Range Facility XR KNEE LT MIN 4 VWSon 12-28 XR KNEE LT MIN 4 VWS XR KNEE LT MIN 4 VW S History: with sunrise. fall landed directly on knee. fall from standing Exam/Technique: AP, lateral, patellar and oblique views of the left knee. Comparison: None available. Findings: There is no evidence of fracture, malalignment or acute bony abnormality. Osteopenia. DJD with spur formation. Loose bodies. IMPRESSION: Degenerative changes. Finalized by Harris Hogan MD on 12/29/2023 1:03 PM [facility] XR SHOULDER LT 2V or >on XR SHOULDER LT 2V or > EXAM: XR SHOULDER LT 2V or > HISTORY: Pain of left shoulder joint for the past month. COMPARISON: None. TECHNIQUE: 3 views of the left shoulder were obtained. FINDINGS: There is no evidence of an acute fracture or dislocation. There is mild to moderate narrowing of the acromioclavicular joint accompanied by small osteophytes. There is mild eccentric narrowing along the inferior aspect of the glenohumeral joint accompanied by small osteophytes. No focal osseous abnormality is otherwise identified. The acromiohumeral interval is maintained. No abnormal soft tissue calcifications are present. IMPRESSION: Degenerative changes are seen at the joints of the left shoulder. There is no evidence of an acute fracture or dislocation. No abnormal soft tissue calcifications are present. Electronically authenticated by: CELINA HENSON Date: 2023-02-09 15:12 Normal [facility] Automated erythrocytes count in urine sediment (number/area)Ordered By: Shana Mercedes on 08-10-2022 RBC Auto (Urine sed) [#/Area] 3-4 [HPF] 0-4 [facility] Automated leukocytes count i n urine sediment (number/area)Ordered By: Shana Mercedes on 08-10-2022 WBC Auto (Urine sed) [#/Area] 20-49 [HPF] 0-4 [facility] Bilirubin Test strip Ql (U)O rdered By: Shana Mercedes on 08-10-2022 Bilirubin Ql (U) Negative Negative [facility] Color Auto (U)Ordered By: Troy Mercedes on 08-10-2022 Color (U) Yellow Yellow [facility] Dipstick [employer] Microscopicon Dipstick & Microscopic [facility] [employer] Other [facility]stick [employer] 1 10-10-2021 Appearance (U) Clear Normal Clear [facility] Comment on above: Order Comment: Name Collection Type:: Collection Method Unknown Performed By: #### A DDONUAPLUS, CUU #### [facility] [address] [id number] [place] Bacteria,Urine None Seen Normal None Seen [facility] Comment on above: Order Comment: Name Collection Type:: Collection Method Unknown Performed By: #### A DDNELYUAPLUS, CUU #### [facility] [address] [id number] [place] Bilirubin,Urine Negative Normal Negative [facility] Comment on above: Order Comment: Name Collection Type:: Collection Method Unknown Performed By: #### A DDNELYUAPLUS, CUU #### [facility] [address] [place] [address] [place] Color (U) Yellow Normal Yellow [facility] Comment on above: Order Comment: Name Collection Type:: Collection Method Unknown Performed By: #### A DDONUAPLUS, CUU #### [facility] [address] [id number] [place] Glucose Ql (U) Normal Normal Normal [facility] Comment on above: Order Comment: Name Collection Type:: Collection Method Unknown Performed By: #### A DDONUAPLUS, CUU #### [place] [address] [place] Hyaline Casts,Urine None Seen Normal 0-8 [facility] Comment on above: Order Comment: Name Collection Type:: Collection Method Unknown Result Comment: PERF ORMED BY: [place] [address] PATHOLOGIST FLORIST SHO RODRIGUEZ M.D. Performed By: #### A DDONUAPLUS, CUU #### [facility] [address] [place] [address] [place] Ketones Ql (U) Negative Normal Negative [facility] Comment on above: Order Comment: Name Collection Type:: Collection Method Unknown Performed By: #### A DDONUAPLUS, CUU #### [facility] [address] [place] [address] [place] Leukocyte esterase Test strip Ql (U) 3+ High Negative [facility] Comment on above: Order Comment: Name Collection Type:: Collection Method Unknown Performed By: #### A DDONUAPLUS, CUU #### [facility] [address] [place] [address] [place] Nitrite,Urine Negative Normal Negative [facility] Comment on above: Order Comment: Name Collection Type:: Collection Method Unknown Performed By: #### A DDONUAPLUS, CUU #### [facility] [address] [place] [address] [place] Occult Blood,Urine Negative Normal Negative [facility] Comment on above: Order Comment: Name Collection Type:: Collection Method Unknown Result Comment: PERF ORMED BY: [place] [address] PATHOLOGIST FLORIST SHO RODRIGUEZ M.D. Performed By: #### A DDONUAPLUS, CUU #### [address] pH (U) 6.0 [pH] Normal 5.0-9.0 [facility] Comment on above: Order Comment: Name Collection Type:: Collection Method Unknown Performed By: #### A DDONUAPLUS, CUU #### [address] Protein,Urine Negative Normal Negative [facility] Comment on above: Order Comment: Name Collection Type:: Collection Method Unknown Performed By: #### A DDONUAPLUS, CUU #### [address] RBC,Urine 3-4 Normal 0-4 [facility] Comment on above: Order Comment: Name Collection Type:: Collection Method Unknown Performed By: #### A DDONUAPLUS, CUU #### [address] Specificy [place],Urine 1.019 Normal 1.001-1.030 [facility] Comment on above: Order Comment: Name Collection Type:: Collection Method Unknown Performed By: #### A DDONUAPLUS, CUU #### [address] Squamous Epithelial Cell,Urine 0-1 Normal 0-2 [facility] Comment on above: Order Comment: Name Collection Type:: Collection Method Unknown Performed By: #### A DDONUAPLUS, CUU #### [address] Urobilinogen,Urine Normal Normal Normal [facility] Comment on above: Order Comment: Name Collection Type:: Collection Method Unknown Performed By: #### A DDONUAPLUS, CUU #### [address] WBC,Urine 20-49 High 0-4 [facility] Comment on above: Order Comment: Name Collection Type:: Collection Method Unknown Performed By: #### A DDONUAPLUS, CUU #### [facility] [address] Ketones Auto test strip (U) [Mass/Vol]Ordered By: Shana Mercedes on 08-10-2022 Ketones (U) [Mass/Vol] Negative Negative [facility] - UrinalysisOrder ed By: Shana Mercedes on 08-10-2022 Hyaline casts LM Ql (Urine sed) None seen [LPF] 0-8 [facility] Nitrite Test strip Ql (U)Ord ered By: Shana Mercedes on 08-10-2022 Nitrite Ql (U) Negative Negative [facility] Protein Auto test strip (U) [Mass/Vol]Ordered By: Shana Mercedes on 08-10-2022 Protein (U) [Mass/Vol] Negative Negative [facility] Specific gravity Auto test s trip (U) [Rel density]Ordered By: Shana Mercedes on 08-10-2022 Specific gravity (U) [Rel density] 1.019 1.001-1.030 [facility] Squamous epithelial cells de tection in urine sediment by light microscopyOrdered By: Shana Mercedes on 08-10-2022 Epithelial cells.squamous LM Ql (Urine sed) 0-1 [HPF] 0-2 [facility] Urine 10 SGon 08-10-2022 Albumin DL <= 20 mg/L (U) [Mass/Vol] Negative [employer] Other Albumin DL <= 20 mg/L (U) [Mass/Vol] large [employer] Other pH (U) 5.0 [pH] [employer] Other Urine 10 SG Negative [employer] Other Urine 10 SG 1.015 [employer] Other Urine 10 SG moderate [employer] Other Urine 10 SG 0.2 [employer] Other Urine Cultureon 08-10-2022 Bacteria identified Cx Nom (U) 30,000 colonies/ml mixed bacterial skin contaminants 2 Days PERFORMED BY: [place] [address] PATHOLOGIST FLORIST SHO RODRIGUEZ M.D. Normal [facility] Comment on above: Performed By: #### A DDONUAPLUS, CUU #### [address] Bacteria identified Cx Nom (U) [employer] Other Urine bacteria detection by automated methodOrdered By: Shana Mercedes on 08-10-2022 Bacteria Auto Ql (U) None seen None Seen [facility] Urine clarity by refractomet ry automatedOrdered By: Shana Mercedes on 08-10-2022 Clarity Refractometry automated (U) Clear Clear [facility] Urine glucose measurement by automated test strip (mass/volume)Ordered By: Shana Mercedes on 08-10-2022 Glucose Auto test strip (U) [Mass/Vol] Normal mg/dL Normal [facility] Urine hemoglobin detection b y automated test stripOrdered By: Shana Mercedes on 08-10-2022 Hemoglobin Auto test strip Ql (U) Negative Negative [facility] Urine leukocyte esterase det ection by automated test stripOrdered By: Shana Mercedes on 08-10-2022 Leukocyte esterase Auto test strip Ql (U) 3+ Negative [facility] Urobilinogen Auto test strip (U) [Mass/Vol]Ordered By: Shana Mercedes on 08-10-2022 Urobilinogen (U) [Mass/Vol] Normal mg/dL Normal [facility] pH Auto test strip (U)Ordere d By: Shana Mercedes on 08-10-2022 pH (U) 6.0 [pH] 5.0-9.0 [facility] AMYLASEon 07-08-2022 Amylase [Catalytic activity/Vol] 41 U/L Normal 25-115 [facility] Comment on above: Performed By: #### C MP, MOO, LIPA #### [facility] [address] [address] [address] Christo Mota CBC AUTO DIFFon 07-08-2022 BASO # 0.1 103/ul Normal 0.0-0.1 [facility] Comment on above: Performed By: #### C MOO DIEHL LIPA #### [facility] [address] [place] [address] Dr. Christo Mota Basophils/100 WBC (Bld) 1.2 % Normal 0.2-2.0 [facility] Comment on above: Performed By: #### C MOO DIEHL LIPA #### [facility] [address] [place] [address] Dr. Christo Mota EO # 0.1 103/ul Normal 0.0-0.7 [facility] Comment on above: Performed By: #### C MOO DIEHL LIPA #### [facility] [address] [place] [address] Dr. Christo Mota Eosinophils/100 WBC (Bld) 1.8 % Normal 0.9-7.0 [facility] Comment on above: Performed By: #### C MOO DIEHL LIPA #### [facility] [address] [place] [address] Dr. Christo Mota Erythrocyte distribution width (RBC) [Ratio] 14.0 % Normal 11.0-15.0 [facility] Comment on above: Performed By: #### C MOO DIEHL LIPA #### [facility] [address] [place] [address] Dr. Christo Mota Hematocrit (Bld) [Volume fraction] 41.4 % Normal 36.0-48.0 [facility] Comment on above: Performed By: #### C MOO DIEHL LIPA #### [facility] [address] [place] [address] Dr. Christo Mota Hemoglobin (Bld) [Mass/Vol] 13.5 g/dL Normal 12.0-16.0 [facility] Comment on above: Performed By: #### C MOO DIEHL LIPA #### [facility] [address] [place] [address] Dr. Christo Mota IG # 0.03 10e3/ul Normal 0.00-0.03 [facility] Comment on above: Performed By: #### C MP, MOO, LIPA #### [facility] [address] [address] [address] Christo Mota IG % 0.4 % Normal 0.0-0.5 [facility] Comment on above: Performed By: #### C MP, MOO, LIPA #### [facility] [address] [address] [address] Christo Mota LYMPH # 2.0 103/ul Normal 1.2-3.8 [facility] Comment on above: Performed By: #### C MP, MOO, LIPA #### [facility] [address] [address] [address] Christo Mota Lymphocytes/100 WBC (Bld) 27.8 % Normal 20.5-60.0 [facility] Comment on above: Performed By: #### C MP, MOO, LIPA #### [facility] [address] [place] [address] Dr. Christo Mota MANUAL DIFF REQ NO Normal [facility] Comment on above: Performed By: #### C MP, MOO, LIPA #### [facility] [address] [place] [address] Dr. Christo Mota MCH (RBC) [Entitic mass] 28.1 pg Normal 26.7-34.0 [facility] Comment on above: Performed By: #### C MP, MOO, LIPA #### [facility] [address] [place] [address] Dr. Christo Mota MCHC (RBC) [Mass/Vol] 32.6 g/dL Normal 29.9-35.2 [facility] Comment on above: Performed By: #### C MP, MOO, LIPA #### [facility] [address] [place] [address] Dr. Christo Mota MCV (RBC) [Entitic vol] 86.1 fL Normal 81.0-99.0 [facility] Comment on above: Performed By: #### C MP, MOO, LIPA #### [facility] [address] [place] [address] Dr. Christo Mota MONO # 0.4 103/ul Normal 0.3-0.8 [facility] Comment on above: Performed By: #### C MOO DIEHL, LIPA #### [facility] [address] [place] [address] Dr. Christo Mota Monocytes/100 WBC (Bld) 6.0 % Normal 1.7-12.0 [facility] Comment on above: Performed By: #### C FAZAL MOO, LIPA #### [facility] [address] [place] [address] Dr. Christo Mota NEUT # 4.6 103/ul Normal 1.4-6.5 [facility] Comment on above: Performed By: #### C MOO DIEHL LIPA #### [facility] [address] [place] [address] Dr. Christo Mota Neutrophils/100 WBC (Bld) 62.8 % Normal 43.0-75.0 [facility] Comment on above: Performed By: #### C MOO DIEHL LIPA #### [facility] [address] [place] [address] Dr. Christo Mota Platelet mean volume (Bld) [Entitic vol] 9.2 fL Critically low 9.5-13.5 [facility] Comment on above: Performed By: #### C MOO DIEHL LIPA #### [facility] [address] [place] [address] Dr. Christo Mota PLT 274 103/ul Normal 150-450 [facility] Comment on above: Performed By: #### C MOO DIEHL, LIPA #### [facility] [address] [place] [address] Dr. Christo Mota RBC 4.81 106/ul Normal 4.20-5.40 [facility] Comment on above: Performed By: #### C MOO DIEHL LIPA #### [facility] [address] [place] [address] Dr. Christo Mota WBC 7.3 103/ul Normal 4.0-11.0 [facility] Comment on above: Performed By: #### C MOO DIEHL, LIPA #### [facility] [address] [place] [address] ABD/PELVIS WO CONon 07-08 CT ABD/PELVIS WO CON EXAMINATION: CT ABD/PELVIS WO CON, 07/08/2022 10:09 AM EDT HISTORY: CALCULUS OF KIDNEY COMPARISON: None. TECHNIQUE: CT scan of the abdomen and pelvis was performed without IV contrast. CT dose reduction technique was used, including Automated Exposure Control. FINDINGS: LUNG BASES: No visible pulmonary or pleural disease. LIVER: No enlargement, atrophy, abnormal density, or significant focal lesion. BILIARY: Cholelithiasis without CT evidence of acute cholecystitis PANCREAS: No lesion, fluid collection, ductal dilatation, or atrophy. SPLEEN: No enlargement or focal lesion. ADRENALS: No mass or enlargement. KIDNEYS: No mass, obstruction, or calcification. BOWEL/MESENTERY: Small hiatal hernia. Nonobstructive bowel gas pattern. AORTA/VASCULAR: No aneurysm or dissection. RETROPERITONEUM: No mass or adenopathy. LYMPH NODES: No adenopathy. URINARY BLADDER: No visible focal wall thickening, lesion, or calculus. PELVIC ORGANS: No visible mass. Pelvic organs appropriate for patient age. ABDOMINAL WALL: No mass or hernia. BONES: No bony lesion or fracture. Mild to moderate degenerative changes OTHER: Negative. IMPRESSION: No obstructive uropathy Cholelithiasis without CT evidence of acute cholecystitis Electronically authenticated by: SHANA WINTERS Date: 2022-07-08 11:42 Normal [facility] CULTURE URINEon 07-08-2022 CULTURE URINE Culture Observations: NO GROWTH Normal [facility] Comment on above: Performed By: #### U RCX #### [facility] [address] [place] [address] Dr. Christo Mota ER URINE PROFILEon 2 Bilirubin Ql (U) Negative Normal NEGATIVE [facility] Comment on above: Performed By: #### U MICRO, ERUR #### [facility] [address] [address] [address] Christo Mota Clarity (U) CLEAR Normal CLEAR [facility] Comment on above: Performed By: #### U MICRO, ERUR #### [facility] [address] [place] [address] Dr. Christo Mota Color (U) LT. YELLOW Normal YELLOW [facility] Comment on above: Performed By: #### U MICRO, ERUR #### [facility] [address] [address] [address] Christo CRUZ A micrscopic examination will be performed if indicated. Normal [facility] Comment on above: Performed By: #### U MICRO, ERUR #### [facility] [address] [address] [address] Christo Mota Glucose Ql (U) Negative Normal NEGATIVE [facility] Comment on above: Performed By: #### U MICRO, ERUR #### [facility] [address] [address] [address] Christo Mota Hemoglobin Ql (U) Negative Normal NEGATIVE [facility] Comment on above: Performed By: #### U MICRO, ERUR #### [facility] [address] [address] [address] Christo Mota Ketones Ql (U) Negative Normal NEGATIVE [facility] Comment on above: Performed By: #### U MICRO, ERUR #### [facility] [address] [address] [address] Christo Mota LEUKOCYTES SMALL Abnormal NEGATIVE [facility] Comment on above: Performed By: #### U MICRO, ERUR #### [facility] [address] [address] [address] Christo Mota Nitrite Ql (U) Negative Normal NEGATIVE [facility] Comment on above: Performed By: #### U MICRO, ERUR #### [facility] [address] [address] [address] Christo Mota pH (U) 6.0 [pH] Normal 5-9 [facility] Comment on above: Performed By: #### U MICRO, ERUR #### [facility] [address] [address] [address] Christo Mota SPEC GRAVITY >=1.030 Abnormal 1.005-<=1.02 5 [facility] Comment on above: Performed By: #### U MICRO, ERUR #### [facility] [address] [address] [address] Christo Mota UA PROTEIN Negative Normal NEGATIVE/ TRACE [facility] Comment on above: Performed By: #### U MICRO, ERUR #### [facility] [address] [place] [address] Dr. Christo Mota UR MICRO IND INDICATED Normal [facility] Comment on above: Performed By: #### U MICRO, ERUR #### [facility] [address] [place] [address] Dr. Christo Mota Urobilinogen Qn (U) 0.2 {Eryn'U}/dL Normal 0.2 - 1. 0 [facility] Comment on above: Performed By: #### U MICRO, ERUR #### [facility] [address] [place] [address] Dr. Christo Mota LIPASEon 07-08-2022 Lipase [Catalytic activity/Vol] 112.0 U/L Normal 73.0-393.0 [facility] Comment on above: Performed By: #### C FAZAL MOO, LIPA #### [facility] [address] [place] [address] Dr. Christo Mota PROF 14(COMP METB)on 022 Albumin [Mass/Vol] 3.5 g/dL Normal 3.4-5.0 [facility] Comment on above: Performed By: #### C FAZAL MOO, LIPA #### [facility] [address] [place] [address] Dr. Christo Mota Albumin/Globulin [Mass ratio] 0.9 {ratio} Normal [facility] Comment on above: Performed By: #### C MP MOO, LIPA #### [facility] [address] [place] [address] Dr. Christo Mota ALP [Catalytic activity/Vol] 73 U/L Normal 46-116 [facility] Comment on above: Performed By: #### C MP, MOO, LIPA #### [facility] [address] [place] [address] Dr. Christo Mota ALT [Catalytic activity/Vol] 31 U/L Normal 14-59 [facility] Comment on above: Performed By: #### C MP, MOO, LIPA #### [facility] [address] [address] [address] Christo Mota Anion gap [Moles/Vol] 10.0 mmol/L Normal [facility] Comment on above: Performed By: #### C MP, MOO, LIPA #### [facility] [address] [address] [address] Christo Mota AST [Catalytic activity/Vol] 36 U/L Normal 15-37 [facility] Comment on above: Performed By: #### C MP, MOO, LIPA #### [facility] [address] [address] [address] Christo Mota Bilirubin [Mass/Vol] 0.4 mg/dL Normal 0.2-1.0 [facility] Comment on above: Performed By: #### C MP, MOO, LIPA #### [facility] [address] [address] [address] Christo Mota Calcium [Mass/Vol] 8.8 mg/dL Normal 8.5-10.1 [facility] Comment on above: Performed By: #### C MP, MOO, LIPA #### [facility] [address] [address] [address] Christo Mota Chloride [Moles/Vol] 105 mmol/L Normal 98-107 [facility] Comment on above: Performed By: #### C MP, MOO, LIPA #### [facility] [address] [address] [address] Christo Mota CO2 [Moles/Vol] 27.6 mmol/L Normal 21.0-32.0 [facility] Comment on above: Performed By: #### C MP, MOO, LIPA #### [facility] [address] [address] [address] Christo Mota Creatinine [Mass/Vol] 0.62 mg/dL Normal 0.55-1.02 [facility] Comment on above: Performed By: #### C MP, MOO, LIPA #### [facility] [address] [address] [address] Christo Mota EGFR-AF BELGIAN >60 Normal >=60 [facility] Comment on above: Performed By: #### C MP, MOO, LIPA #### [facility] [address] [address] [address] Christo Mota EGFR-NON AF BELGIAN >60 Normal >=60 [facility] Comment on above: Performed By: #### C MP, MOO, LIPA #### [facility] [address] [place] [address] Dr. Christo Mota Globulin (S) [Mass/Vol] 3.8 g/dL Normal [facility] Comment on above: Performed By: #### C MP, MOO, LIPA #### [facility] [address] [place] [address] Dr. Christo Mota Glucose [Mass/Vol] 120 mg/dL Critically high 74-106 [facility] Comment on above: Performed By: #### C MP, MOO, LIPA #### [facility] [address] [place] [address] Dr. Christo Mota Potassium [Moles/Vol] 4.6 mmol/L Normal 3.5-5.1 [facility] Comment on above: Performed By: #### C MP, MOO, LIPA #### [facility] [address] [place] [address] Dr. Christo Mota Protein [Mass/Vol] 7.3 g/dL Normal 6.4-8.2 [facility] Comment on above: Performed By: #### C MP, MOO, LIPA #### [facility] [address] [place] [address] Dr. Christo Mota Sodium [Moles/Vol] 138 mmol/L Normal 136-145 [facility] Comment on above: Performed By: #### C MP, MOO, LIPA #### [facility] [address] [place] [address] Dr. Christo Mota Urea nitrogen [Mass/Vol] 13.0 mg/dL Normal 7.0-18.0 [facility] Comment on above: Performed By: #### C MP, MOO, LIPA #### [facility] [address] [place] [address] Dr. Christo Mota Urea nitrogen/Creatinine [Mass ratio] 21.0 mg/mg Normal [facility] Comment on above: Performed By: #### C MP, MOO, MARICRUZA #### [facility] [address] [place] [address] Dr. Christo Mota URINE MICROSCOPIC ONLYon BACTERIA NONE SEEN Normal NONE SEEN [facility] Comment on above: Performed By: #### U MICRO, ERUR #### [facility] [address] [place] [address] Dr. Christo Mota Bacteria identified Cx Nom (U) INDICATED Normal [facility] Comment on above: Performed By: #### U MICRO, ERUR #### [facility] [address] [place] [address] Dr. Christo Mota CAST NONE SEEN Normal NONE SEEN [facility] Comment on above: Performed By: #### U MICRO, ERUR #### [facility] [address] [place] [address] Dr. Christo Mota Crystals LM Nom (Urine sed) NONE SEEN Normal NONE SEEN [facility] Comment on above: Performed By: #### U MICRO, ERUR #### [facility] [address] [place] [address] Dr. Christo Mota Epithelial cells LM Ql (Urine sed) MODERATE Abnormal NONE SEEN /RARE [facility] Comment on above: Performed By: #### U MICRO, ERUR #### [facility] [address] [place] [address] Dr. Christo Mota MUCOUS NONE SEEN Normal NONE SEEN [facility] Comment on above: Performed By: #### U MICRO, ERUR #### [facility] [address] [place] [address] Dr. Christo Mota RBC NONE SEEN Abnormal 0-2 [facility] Comment on above: Performed By: #### U MICRO, ERUR #### [facility] [address] [place] [address] Dr. Christo Mota WBC 5-10 Abnormal NONE SEEN [facility] Comment on above: Performed By: #### U MICRO, ERUR #### [facility] [address] [place] [address] CHEST WO CONon 06-30-2022 CT CHEST WO CON EXAMINATION: CT CHEST WO CON HISTORY: Lung field abnormal COMPARISON: No relevant comparison available. TECHNIQUE: Axial, Coronal, and Sagittal images were created without the administration of IV contrast material. Dose reduction techniques were achieved by using automated exposure control and/or adjustment of mA and/or kV according to patient size and/or use of iterative reconstruction technique. FINDINGS: LUNGS: Stable lobular 2.0 cm mass within the left lower lobe superior segment with adjacent 0.7 cm stable nodule. Mild bronchiectasis within lower lobes. PLEURA: No mass, effusion, or pneumothorax. VASCULATURE: No abnormality. SCOTTIE: No mass or pathologic adenopathy. MEDIASTINUM: No mass or pathologic adenopathy. CARDIAC: No enlargement, pericardial thickening, or significant calcification. AORTA: No aneurysm or dissection. CHEST WALL: No mass or axillary adenopathy BONES: No bone lesion or fracture. LIMITED ABDOMEN: No suspicious findings. Limited images of the upper abdomen. OTHER: Negative. IMPRESSION: 1. Stable left lower lobe nodules since at least 12/06/2017 consistent with benign etiology. No new or suspicious nodules. Electronically authenticated by: SANJEEV ALMANZA Date: 2022-06-30 19:30 Normal [facility] IMMUNOGLOBULIN E, TOTALon Immunoglobulin E, Total 44 IU/mL Normal 6-495 [facility] Comment on above: Performed By: #### I GETOT #### [facility] [address] [place] [address] Dr. Christo Mota ASPERGILLUS AB, QUANTITATIVE DIDon 06-05-2022 Aspergillus flavus Negative Normal Neg:<1:1 [facility] Comment on above: Performed By: #### C MOO DIEHL, LIPA #### [facility] [address] [address] [address] Christo Mota Aspergillus fumigatus Negative Normal Neg:<1:1 [facility] Comment on above: Performed By: #### C FAZAL MOO, LIPA #### [facility] [address] [address] [address] Christo Mota Aspergillus niger Negative Normal Neg:<1:1 [facility] Comment on above: Performed By: #### C FAZAL MOO, LIPA #### [facility] [address] [place] [address] Dr. Christo Mota ANTI NEUTROPHIL CYTOPLASMIC AB (ANCA) PRon 06-03-2022 Anti-MPO Antibodies <0.2 Normal 0.0-0.9 [facility] Comment on above: Result Comment: Perf ormed at: BN Performed By: #### C MP, MOO, LIPA #### [facility] [address] [place] [address] Dr. Christo Mota Anti-PR3 Antibodies <0.2 Normal 0.0-0.9 [facility] Comment on above: Result Comment: Perf ormed at: BN Performed By: #### C MP, MOO, LIPA #### [facility] [address] [place] [address] Dr. Christo Mota Atypical pANCA <1:20 Normal Neg:<1:20 [facility] Comment on above: Result Comment: The atypical pANCA pattern has been observed in a significant percentage of patients with ulcerative colitis, primary sclerosing cholangitis and autoimmune hepatitis. Performed at: CB Performed By: #### C MP, MOO, LIPA #### [facility] [address] [place] [address] Dr. Christo Mota Cytoplasmic (C-ANCA) <1:20 Normal Neg:<1:20 [facility] Comment on above: Result Comment: Perf ormed at: CB Performed By: #### C MP, MOO, LIPA #### [facility] [address] [place] [address] Dr. Christo Mota Perinuclear (P-ANCA) <1:20 Normal Neg:<1:20 [facility] Comment on above: Result Comment: The presence of positive fluorescence exhibiting P-ANCA or C-ANCA patterns alone is not specific for the diagnosis of Andreia's Granulomatosis (WG) or microscopic polyangiitis. Decisions about treatment should not be based solely on ANCA IFA results. The International ANCA Group Consensus recommends follow up testing of positive sera with both OK-3 and MPO-ANCA enzyme immunoassays. As many as 5% serum samples are positive only by EIA. Ref. AM J Clin Pathol 1999;111:507-513. Performed at: CB Performed By: #### C MOO DIEHL LIPA #### [facility] [address] [place] [address] Dr. Christo Mota CBC AUTO DIFFon 06-01-2022 BASO # 0.1 103/ul Normal 0.0-0.1 [facility] Comment on above: Performed By: #### C MOO DIEHL LIPA #### [facility] [address] [place] [address] Dr. Christo Mota Basophils/100 WBC (Bld) 1.0 % Normal 0.2-2.0 [facility] Comment on above: Performed By: #### C MOO DIEHL LIPA #### [facility] [address] [place] [address] Dr. Christo Mota EO # 0.2 103/ul Normal 0.0-0.7 [facility] Comment on above: Performed By: #### C MOO DIEHL LIPA #### [facility] [address] [place] [address] Dr. Christo Mota Eosinophils/100 WBC (Bld) 2.1 % Normal 0.9-7.0 [facility] Comment on above: Performed By: #### C MOO DIEHL LIPA #### [facility] [address] [place] [address] Dr. Christo Mota Erythrocyte distribution width (RBC) [Ratio] 13.7 % Normal 11.0-15.0 [facility] Comment on above: Performed By: #### C MOO DIEHL LIPA #### [facility] [address] [place] [address] Dr. Christo Mota Hematocrit (Bld) [Volume fraction] 42.0 % Normal 36.0-48.0 [facility] Comment on above: Performed By: #### C MOO DIEHL LIPA #### [facility] [address] [place] [address] Dr. Christo Mota Hemoglobin (Bld) [Mass/Vol] 13.2 g/dL Normal 12.0-16.0 [facility] Comment on above: Performed By: #### C MOO DIEHL LIPA #### [facility] [address] [place] [address] Dr. Christo Mota IG # 0.03 10e3/ul Normal 0.00-0.03 [facility] Comment on above: Performed By: #### C MP, MOO, LIPA #### [facility] [address] [address] [address] Christo Mota IG % 0.4 % Normal 0.0-0.5 [facility] Comment on above: Performed By: #### C MP, MOO, LIPA #### [facility] [address] [place] [address] Dr. Christo Mota LYMPH # 2.3 103/ul Normal 1.2-3.8 [facility] Comment on above: Performed By: #### C MP, MOO, LIPA #### [facility] [address] [place] [address] Dr. Christo Mota Lymphocytes/100 WBC (Bld) 28.6 % Normal 20.5-60.0 [facility] Comment on above: Performed By: #### C MP, MOO, LIPA #### [facility] [address] [place] [address] Dr. Christo Mota MANUAL DIFF REQ NO Normal [facility] Comment on above: Performed By: #### C MP, MOO, LIPA #### [facility] [address] [place] [address] Dr. Christo Mota MCH (RBC) [Entitic mass] 27.8 pg Normal 26.7-34.0 [facility] Comment on above: Performed By: #### C MP, MOO, LIPA #### [facility] [address] [place] [address] Dr. Christo Mota MCHC (RBC) [Mass/Vol] 31.4 g/dL Normal 29.9-35.2 [facility] Comment on above: Performed By: #### C MP, MOO, LIPA #### [facility] [address] [place] [address] Dr. Christo Mota MCV (RBC) [Entitic vol] 88.4 fL Normal 81.0-99.0 [facility] Comment on above: Performed By: #### C MOO DIEHL LIPA #### [facility] [address] [place] [address] Dr. Christo Mota MONO # 0.5 103/ul Normal 0.3-0.8 [facility] Comment on above: Performed By: #### C MOO DIEHL, LIPA #### [facility] [address] [place] [address] Dr. Christo Mota Monocytes/100 WBC (Bld) 6.8 % Normal 1.7-12.0 [facility] Comment on above: Performed By: #### C MOO DIEHL LIPA #### [facility] [address] [place] [address] Dr. Christo Mota NEUT # 4.8 103/ul Normal 1.4-6.5 [facility] Comment on above: Performed By: #### C MOO DIEHL LIPA #### [facility] [address] [place] [address] Dr. Christo Mota Neutrophils/100 WBC (Bld) 61.1 % Normal 43.0-75.0 [facility] Comment on above: Performed By: #### C MOO DIEHL LIPA #### [facility] [address] [place] [address] Dr. Christo Mota Platelet mean volume (Bld) [Entitic vol] 9.0 fL Critically low 9.5-13.5 [facility] Comment on above: Performed By: #### C MOO DIEHL LIPA #### [facility] [address] [place] [address] Dr. Christo Mota PLT 257 103/ul Normal 150-450 [facility] Comment on above: Performed By: #### C MOO DIEHL LIPA #### [facility] [address] [place] [address] Dr. Christo Mota RBC 4.75 106/ul Normal 4.20-5.40 [facility] Comment on above: Performed By: #### C MOO DIEHL, LIPA #### [facility] [address] [place] [address] Dr. Christo Mota WBC 7.9 103/ul Normal 4.0-11.0 [facility] Comment on above: Performed By: #### C MOO DIEHL LIPA #### [facility] [address] [address] [address] Christo Mota Dipstick and Microscopicon 0 11-17-2021 Appearance (U) Turbid Critically abnormal Clear [facility] Comment on above: Order Comment: Name Collection Type:: Collection Method Unknown Performed By: #### A DDONUAPLUS, CUU #### [facility] [address] [place] [address] [place] Bacteria,Urine None Seen Normal None Seen [facility] Comment on above: Order Comment: Name Collection Type:: Collection Method Unknown Performed By: #### A DDONUAPLUS, CUU #### [facility] [address] [place] [address] [place] Bilirubin,Urine Negative Normal Negative [facility] Comment on above: Order Comment: Name Collection Type:: Collection Method Unknown Performed By: #### A DDONUAPLUS, CUU #### [facility] [address] [place] [address] [place] Color (U) Yellow Normal Yellow [facility] Comment on above: Order Comment: Name Collection Type:: Collection Method Unknown Performed By: #### A DDONUAPLUS, CUU #### [facility] [address] [place] [address] [place] Glucose Ql (U) Normal Normal Normal [facility] Comment on above: Order Comment: Name Collection Type:: Collection Method Unknown Performed By: #### A DDONUAPLUS, CUU #### [facility] [address] [place] [address] [place] Hyaline Casts,Urine 0-8 Normal 0-8 [facility] Comment on above: Order Comment: Name Collection Type:: Collection Method Unknown Result Comment: PERF ORMED BY: [place] [address] PATHOLOGIST FLORIST SHO RODRIGUEZ M.D. Performed By: #### A DDONUAPLUS, CUU #### [place] [address] [place] Ketones Ql (U) Negative Normal Negative [facility] Comment on above: Order Comment: Name Collection Type:: Collection Method Unknown Performed By: #### A DDONUAPLUS, CUU #### [address] Leukocyte esterase Test strip Ql (U) 3+ High Negative [facility] Comment on above: Order Comment: Name Collection Type:: Collection Method Unknown Performed By: #### A DDONUAPLUS, CUU #### [place] [address] [place] Nitrite,Urine Negative Normal Negative [facility] Comment on above: Order Comment: Name Collection Type:: Collection Method Unknown Performed By: #### A DDONUAPLUS, CUU #### [address] Occult Blood,Urine Negative Normal Negative [facility] Comment on above: Order Comment: Name Collection Type:: Collection Method Unknown Result Comment: PERF ORMED BY: [place] [address] PATHOLOGIST FLORIST SHO RODRIGUEZ M.D. Performed By: #### A DDONUAPLUS, CUU #### [address] Othe Crystals,Urine None Seen Normal [facility] Comment on above: Order Comment: Name Collection Type:: Collection Method Unknown Performed By: #### A DDONUAPLUS, CUU #### [place] [address] [place] Protein,Urine Negative Normal Negative [facility] Comment on above: Order Comment: Name Collection Type:: Collection Method Unknown Performed By: #### A DDONUAPLUS, CUU #### [place] [address] [place] RBC,Urine 5-9 High 0-4 [facility] Comment on above: Order Comment: Name Collection Type:: Collection Method Unknown Performed By: #### A DDONUAPLUS, CUU #### [facility] [address] [place] [address] Specificy [place],Urine 1.030 Normal 1.001-1.030 [facility] Comment on above: Order Comment: Name Collection Type:: Collection Method Unknown Performed By: #### A DDONUAPLUS, CUU #### [address] Squamous Epithelial Cell,Urine 3-4 High 0-2 [facility] Comment on above: Order Comment: Name Collection Type:: Collection Method Unknown Performed By: #### A DDONUAPLUS, CUU #### [address] Urobilinogen,Urine Normal Normal Normal [facility] Comment on above: Order Comment: Name Collection Type:: Collection Method Unknown Performed By: #### A DDONUAPLUS, CUU #### [address] WBC,Urine 50-100 High 0-4 [facility] Comment on above: Order Comment: Name Collection Type:: Collection Method Unknown Performed By: #### A DDONUAPLUS, CUU #### [address] Urine 10 SGon 11-17-2021 pH (U) 5.0 [pH] Normal 5.0-9.0 [facility] [employer] Other Comment on above: Order Comment: Name Collection Type:: Collection Method Unknown Performed By: #### A DDONUAPLUS, CUU #### [address] Albumin DL <= 20 mg/L (U) [Mass/Vol] trace [employer] Other Albumin DL <= 20 mg/L (U) [Mass/Vol] moderate [employer] Other Urine 10 SG Negative [employer] Other Urine 10 SG 1.030 [employer] Other Urine 10 SG trace [employer] Other Urine 10 SG 0.2 [employer] Other Urine Cultureon 11-17-2021 Bacteria identified Cx Nom (U) 15,000 colonies/ml mixed bacterial skin contaminants 2 Days PERFORMED BY: [place] [id number] PATHOLOGIST FLORIST SHO RODRIGUEZ M.D. [facility] Comment on above: Performed By: #### A ADRIANE VALENCIAU #### [id number] [facility] CNPNon 06-25-2019 CNPN Telephone (PULMAV) JAMAICA CAMERON ([id number]) 1960 F Date Time Provider Department 06/25/19 BRITTANY HART During your visit today, we recorded the following information about you: Sherin Arun RANKIN 06/25/2019 9:07 AM Addendum Faxed request for medical records to patients previous molding technician with confirmation Verified RAD images scanned into chart, mailed original CD back to patient Darek Hernandez Anibal [employer] INSTRUCTOR 06/26/2019 10:10 AM Signed Medical records received and placed on Dr. Hart's desk for review. Brittany Hart MD 12/14/2019 2:34 PM Signed Records received PFTs from September 17, 2016 at [facility] in [facility] They show significant restrictive pattern FVC is 1. 3/4/45 percent predicted, FVC scratch that FEV1 is 1 L at 43% predicted Ratio 75% predicted Total lung capacity is 2.15, 52 percent predicted DLCO is 10.438% Flow volume loop shows a flattened inspiratory limb CT chest 12/06/2017 Impression Left lower lobe noncalcified lung nodules are unchanged since November 2016. No new lung nodules. We'll month follow-up recommended. CT chest 05/18/2017 Impression Stable appearance of the 2 left lower lobe nodules since the previous exam in November Repeat exam in [address] chest 11/12/2016 Impression No evidence of ILD Mild diffuse air trapping on expiratory images There are 2 noncalcified left lower lobe lung nodules measuring up to 1.8. Sinus PET is recommended for further evaluation Hepatic steatosis next and small hiatal hernia Echocardiogram 10/05/2016 Summary Normal LV systolic function EF 55-60% No significant valvular regurgitation or stenosis August 31, 2016 stress test No evidence of ischemia or infarction Low risk scan Most recent office visit from December 03, 2016 Asthma Lung nodule Rhinitis States that a PET scan was ordered at that visit Medications that were ordered were Flonase, theophylline Lab work ordered immunoglobulins IgE, Pranay, ANCA, UNRULY Hart MD 12/14/2019 2:35 PM Signed I see her December appt and CT were cancelled due to Covid Please make sure the CT chest and follow up are rescheduled. Ok to be postpone to 4-6 months Anna Felder PSS 12/14/2019 3:14 PM Signed Patient declined to reschedule at this time. She states she will call back towards the end of the year. Allergies As of Date: 06/25/2019 Noted Allergy Reaction ACETAMINOPHEN-PAMABR OM 12/07/2016 5 - Intolerance Comments: Other reaction(s): Intolerance-unknown DOXYCYCLINE 12/07/2016 11 - Vomiting PENICILLINS 12/07/2016 11 - Vomiting Date Reviewed: 06/22/2019 Reviewed by: Brittany Hart - Fully Assessed Reason for Visit: Received Outside Medical Records [[id number]] Prescriptions as of 06/25/2019 Sig: TIZANIDINE 4 MG TABLET Take 4 mg by mouth every 6 ho* CELECOXIB 200 MG CAPSULE Take 200 mg by mouth once jane* OMEPRAZOLE 20 MG CAPSULE,SIENNA* Take 20 mg by mouth once bel* LEVOTHYROXINE 112 MCG TABLET Take 112 mcg by mouth daily b* MULTIVITAMIN CAPSULE Take 1 capsule by mouth once * RESVERATROL-QUERCETI N ORAL Take 500 mg by mouth as neede* FLUTICASONE PROPIONATE 44 MCG* Inhale 1 Puff as instructed t* Problem List As Of Date 06/25/2019 Noted Resolved BMI 50.0-59.9, adult (HCC) [Z68.43] 06/19/2019 Encounter Status:Closed by ARUN SHERINMISTI RANKIN on 06/25/19 [facility] CNOVon 06-22-2019 CNOV Office Visit (PULMAV) JAMAICA CAMERON ([id number]) 1960 F Date Time Provider Department 06/22/19 11:00 AM BRITTANY HART During your visit today, we recorded the following information about you: Temperature Pulse Respiration Blood pressure 98 degrees 75/minute 22/minute 130/76 Weight Height 123.4 kg 1.499 m Brittany Hart MD 06/22/2019 3:10 PM Signed NEW PATIENT OFFICE VISIT Consultation requested by Dr. hSana Mercedes for an opinion regarding asthma. [place] Cameron's PCP is Shana Mercedes DO. My final recommendations will be communicated back to the requesting physician by way of shared Medical record or letter to requesting physician via [place] mail. HPI: Ms. Cameron is a 59 year old female who presents for evaluation of asthma. Per PCP note from earlier this year patient was asking for a second opinion regarding her asthma and she was referred to Dr. Donny Holland, but she was scheduled with me. She saw a pulmonary doctor in [place], but didn't like him. He was evaluating her nodules, brought up chemo to her, she said she would not do chemo and so he left the room she says. 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 She brought 4 different CDs with her today, no radiology reports or other records except for an office visit with her PCP from November of this year. CT chest November 12, 2016 PET scan 12/15/16 CT chest May 2017 As a kid she was fine, no issues back then. She had walking pneumonia back in her 20s, about 30 years ago. Asthma came up in her 20s and 30s but got progressively worse Triggers: aerosols, perfumes, air freshners, glue on floors She saw allergy team in [place] - she is allergic to hoarse, dogs, cats, hay, grass, mold, Using Quercetin (natural antihistamine?) She was on singulair once in the past, she stopped it on her own since she read up on it. She felt like she was getting bronchitis 3 times a year. She has been on Symbicort, this was doing nothing. Well over a year ago. She is on her albuterol inhaler, sometimes the albuterol she has to use a couple of times Certain days she lives on it She uses albuterol at least twice a day. 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 Her asthma symptoms are not well controlled physical exam findings as above. 1. Left lung nodules, 1 is 1.8 centimeter the other is 0.6 centimeter both noncalcified. See discussion below 2. Asthma, moderate persistent, not well controlled 3. Obesity 4. Gastroesophageal reflux disease Patient wanted a 2nd opinion regarding the lung nodules. I spent a good deal of time with the patient explaining the concept of lung nodules, differential, approach to diagnosis, etc. She is a nonsmoker but that does not rule out malignancy. She has strong family history of different malignancies. My recommendation is to start with a PET-CT scan which her primary molding technician recommended. Based on the PET-CT scan further recommendations were to follow. If the pet is positive then she will need biopsy and/or surgical referral If pet is negative options include continued monitoring in 3 months as well as the option of discussion at tumor board. Regarding the asthma seems to be not control. This could be bar partly due to occupational exposures called also be due to obesity and reflux. She should continue proton pump inhibitor. I advised her to use Symbicort 2 puffs twice daily. She is advised to rinse her mouth after each use. She is also advised to increase the use of albuterol up to 6 times daily if needed. The patient was satisfied with the discussion and she will follow-up with her primary molding technician in [place]. She is most welcome to call us back with any other recommendations. REVIEW OF SYSTEMS: GENERAL: No weight loss, malaise or fevers . HEENT: Negative for frequent or significant headaches NECK: Negative for pain or significant neck swelling RESPIRATORY: see HPI CARDIOVASCULAR: Negative for chest pain, leg swelling or palpitations GI: No nausea, vomiting, or diarrhea : No history of dysuria or frequency MUSCULOSKELETAL: chronic arthritis SKIN: Negative for lesions, rash, and itching . PSYCH: Negative for sleep disturbance, mood disorder HEMATOLOGY/LYMPHOLOG Y: Negative for prolonged bleeding, bruising easily . ENDOCRINE: Negative for cold or heat intolerance, polyuria or polydipsia . NEURO: No history of headaches, syncope The remainder of the review of systems is negative. PMH, FAMH, SOCIAL History AND Allergies were verified and updated, and medications were reconciled with the patient at this visit. PAST MEDICAL HISTORY Diagnosis Date - Allergic rhinitis - Arthritis - Asthma - Obesity : PAST SURGICAL HISTORY Procedure Laterality Date - REPAIR UMBILICAL HERNIA : FAMILY HISTORY Problem Relation Age of Onset - Heart disease Mother - Cancer Father : Social History Socioeconomic History Marital status: Single Spouse name: Not on file Number of children: Not on file Years of education: Not on file Highest education level: Not on file Occupational History Not on file Social Needs Financial resource strain: Not on file Food insecurity: Worry: Not on file Inability: Not on file Transportation needs: Medical: Not on file Non-medical: Not on file Tobacco Use Smoking status: Never Smoker Smokeless tobacco: Never Used Substance and Sexual Activity Alcohol use: Not on file Drug use: Not on file Sexual activity: Not on file Lifestyle Physical activity: Days per week: Not on file Minutes per session: Not on file Stress: Not on file Relationships Social connections: Talks on phone: Not on file Gets together: Not on file Attends gnosticism service: Not on file Active member of club or organization: Not on file Attends meetings of clubs or organizations: Not on file Relationship status: Not on file Intimate partner violence: Fear of current or ex partner: Not on file Emotionally abused: Not on file Physically abused: Not on file Forced sexual activity: Not on file Other Topics Concerns: Not on file Social History Narrative Not on file Allergies: ALLERGIES Allergen Reactions - Acetaminophen-Pamab* Intolerance Other reaction(s): Intolerance-unknown - Doxycycline Vomiting - Penicillins Vomiting Current Medications: Current Outpatient Medications Medication Sig Dispense Refill - tiZANidine (ZANAFLEX) 4 mg tablet Take 4 mg by mouth every 6 hours as needed. - celecoxib (CELEBREX) 200 mg capsule Take 200 mg by mouth once daily. - omeprazole (PRILOSEC) 20 mg capsule Take 20 mg by mouth once daily. - levothyroxine (SYNTHROID) 112 mcg tablet Take 112 mcg by mouth daily before breakfast. - Multivitamin capsule Take 1 capsule by mouth once daily. - RESVERATROL-QUERCETI N ORAL Take 500 mg by mouth as needed. - fluticasone (FLOVENT HFA) 44 mcg/actuation inhaler Inhale 1 Puff as instructed twice daily. Rinse mouth out after use 1 Inhaler 5 No current facility-administere d medications for this visit. PHYSICAL EXAM: BP 130/76 Pulse 75 Temp (Src) 98 (Oral) Resp 22 Ht 4' 11 (1.50m) Wt 272 lb (123.4kg) SpO2 95% BMI 54.91 kg/(m2). General appearance: well appearing, in no acute distress, alert Skin: skin color normal, no rashes or lesions Eyes: Anicteric sclera. Extraocular movements are intact. Ears: External ears normal, canals clear Nose: Nasal mucosa appears normal Oropharynx: lips, mucosa, and tongue normal, oropharynx normal Neck: Supple, no adenopathy Respiratory: lungs clear to auscultation, no wheezing or rhonchi Cardiovascular: S1, S2. RRR without murmur. Trace lower extremity edema Gastrointenstinal: Abdomen soft, non-tender Musculoskeletal: Extremities normal. No deformities or skin discoloration. Neuro: Gait normal. Sensation grossly intact. Data Review: I personally reviewed, interpreted, and discussed the labs, PFTs and radiographs with the patient as noted below: Care everywhere CT chest from 12/06/17 - no actual images just report There are 2 noncalcified left lower lobe nodules, which measure 1.9 cm (axial image 49) and 0.5 cm (axial image 53), respectively.??No new lung nodules. The central airways are patent. No acute osseous abnormalities or aggressive osseous lesions. Visualized structures in the lower neck are unremarkable. Visualized chest wall structures are unremarkable.??Large stone in the gallbladder.??Small hiatal hernia.??Normal heart size. No pleural or pericardial effusions. The thoracic aorta is unremarkable. The central pulmonary arteries are unremarkable. No enlarged thoracic lymph nodes. IMPRESSION: 1.??Left lower lobe noncalcified lung nodules are unchanged since November 2016.??No new lung nodules.??Twelve-tue follow-up CT recommended to reevaluate. 2.??Cholelithiasis. 3.??Small hiatal hernia. 05/18/17 CT chest Impression: 1. Stable appearance of the 2 left lower lobe nodules since the previous examination dated 11/12/2016. A repeat examination in 6 months is recommended to ensure stability. 2. Cholelithiasis Chest CT: 11/12/2016 Impression 1.??No evidence of interstitial lung disease or an acute cardiopulmonary process. 2.??Mild diffuse air trapping on expiratory images. 3.??There are 2 noncalcified left lower lobe lung nodules measuring up to 1.8 cm in size.??A PET/CT is recommended to further evaluate. 4.??Hepatic steatosis. 5.??Small hiatal hernia.? PFT: 06/22/2019 I have personally reviewed and my interpretation is as follows: normal spirometry with significant BD response Assessment/Plan: Assessment: - Asthma - a lot of symptoms and albuterol use, however, baseline modesta today was normal. She did have a significant BD response - dyspnea on exertion - likely related to obesity (causing significant restriction) and deconditioning, with some component of asthma possibly - allergic rhinitis - lung nodules - seem to have been found in 2017, close to 2 cm in size for largest nodule; does not sound like a biopsy was ever done, but per patient she was offered chemotherapy? Hx is unclear. She brought some CDs with her but there is also a CT from 2018 I did not see on her CDs today. Differential includes malignancy including indolent carcinoid, vs benign lesion give stability per radiology reports - morbid obesity - BMI 55 Plan: - start low dose Flovent twice a day, rinse mouth out after use - continue albuterol with plan to cut down on how much she is using once Flovent is started. She will keep track of use - DLCO and lung volumes morning of next visit - CT chest to reevaluate her large lung nodules, last image was November 2017. Might benefit from biopsy or at least annual scans for up to 5 years since 2017 to ensure stability - obtain prior pulmonary records, unclear to me why she was being offered chemotherapy according to her (which she refused, but unclear to me if she actually was being offered chemo). I reviewed the CDs that she brought with her today, unable to fully see the nuclear images from the PET scan CD - discussed importance of diet, exercise, weight loss - offered flu vaccine which she states she does not take The above plan was discussed with the patient and all questions were answered. I will see Ms. Cameron for follow-up in 4-6 months or sooner if needed Brittany Hart MD Pulmonary and Critical Care Medicine [facility] [place] June 22, 2019 11:10 AM I spent 80 minutes in the visit, with more than 50% of the total [id number]-qk-[id number] time of the visit in counseling / coordination of care. Referring Provider: SHANA MERCEDES [[id number]] Allergies As of Date: 06/22/2019 Noted Allergy Reaction ACETAMINOPHEN-PAMABR OM 12/07/2016 5 - Intolerance Comments: Other reaction(s): Intolerance-unknown DOXYCYCLINE 12/07/2016 11 - Vomiting PENICILLINS 12/07/2016 11 - Vomiting Date Reviewed: 06/22/2019 Reviewed by: Brittany Hart - Fully Assessed Primary Visit Diagnosis:Dyspnea on exertion [R06.09] Other Visit Diagnoses:Lung nodules [R91.8] Mild intermittent asthma, unspecified whether complicated [J45.20] Obesity without serious comorbidity, unspecified classification, unspecified obesity type [E66.9] Order(s):LUNG VOLUMES [8817220] Order #: [id number] FUTURE LUNG DIFFUSION CAPACITY (DLCO) [7999252] Order #: [id number] FUTURE CT CHEST WO IVCON [[id number]] Order #: [id number] FUTURE fluticasone (FLOVENT HFA) 44 mcg/actuation inhalerInhale 1 Puff as instructed twice daily. Rinse mouth out after useDisp: 1 InhalerRfl: 5 Prescriptions as of 06/22/2019 Sig: TIZANIDINE 4 MG TABLET Take 4 mg by mouth every 6 ho* CELECOXIB 200 MG CAPSULE Take 200 mg by mouth once jane* OMEPRAZOLE 20 MG CAPSULE,SIENNA* Take 20 mg by mouth once bel* LEVOTHYROXINE 112 MCG TABLET Take 112 mcg by mouth daily b* MULTIVITAMIN CAPSULE Take 1 capsule by mouth once * RESVERATROL-QUERCETI N ORAL Take 500 mg by mouth as neede* FLUTICASONE PROPIONATE 44 MCG* Inhale 1 Puff as instructed t* Problem List As Of Date 06/22/2019 Noted Resolved BMI 50.0-59.9, adult (FORM[facility]LY [facility]) [Z68.43] INVALID FOR* Prescriptions ordered this encounter Disp Refills Start End FLUTICASONE PROPIONATE 44 MCG/ACTUAT* 1 In* 5 06/22/2019 Route: INHALATION Sig: Inhale 1 Puff as instructed twice daily. Rinse mouth out after use Disposition: Return in about 4 months (around 10/23/2019). Follow-up and Disposition History Recorded Encounter Status:Closed by BRITTANY HART MD on 06/22/19 [facility] OBSOLETEon 06-22-2019 OBSOLETE Procedure (PULMAV) JAMAICA CAMERON ([id number]) 1960 F Date Time Provider Department 06/22/19 10:00 AM PULM LAB [facility] PULMAV During your visit today, we recorded the following information about you: Referring Provider: SHANA MERCEDES [[id number]] Allergies As of Date: 06/22/2019 (Not on File) Date Reviewed: 06/22/2019 Reviewed by: Sujey (Hailey) Hailey Urena - Fully Assessed Reason for Visit: Spirometry [191] Visit Diagnosis:Shortness of breath [R06.02] Order(s):SPIROMETRY WITH DILATOR IF OBSTRUCTED [[id number]] Order #: [id number]. #:[id number] Prescriptions as of 06/22/2019 Sig: OMEPRAZOLE 20 MG CAPSULE,SIENNA* Take 20 mg by mouth once bel* LEVOTHYROXINE 112 MCG TABLET Take 112 mcg by mouth daily b* MULTIVITAMIN CAPSULE Take 1 capsule by mouth once * RESVERATROL-QUERCETI N ORAL Take 500 mg by mouth as neede* Problem List As Of Date: 06/22/2019 (None) Encounter Status:Closed by SUJEY JIMENEZ RRT on 06/22/19 Normal [facility] PROGRESSon 06-22-2019 PROGRESS HNO ID: [id number] Author: Brittany Hart Service: ? Author Type: Physician Type: Progress Notes Filed: 06/22/2019 3:10 PM Note Text: NEW PATIENT OFFICE VISIT Consultation requested by Dr. Shana Mercedes for an opinion regarding asthma. [place] Cameron's PCP is Shana Mercedes DO. My final recommendations will be communicated back to the requesting physician by way of shared Medical record or letter to requesting physician via [place] mail. HPI: Ms. Cameron is a 59 year old female who presents for evaluation of asthma. Per PCP note from earlier this year patient was asking for a second opinion regarding her asthma and she was referred to Dr. Donny Holland, but she was scheduled with me. She saw a pulmonary doctor in [place], but didn't like him. He was evaluating her nodules, brought up chemo to her, she said she would not do chemo and so he left the room she says. 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 She brought 4 different CDs with her today, no radiology reports or other records except for an office visit with her PCP from November of this year. CT chest November 12, 2016 PET scan 12/15/16 CT chest May 2017 As a kid she was fine, no issues back then. She had walking pneumonia back in her 20s, about 30 years ago. Asthma came up in her 20s and 30s but got progressively worse Triggers: aerosols, perfumes, air freshners, glue on floors She saw allergy team in [place] - she is allergic to hoarse, dogs, cats, hay, grass, mold, Using Quercetin (natural antihistamine?) She was on singulair once in the past, she stopped it on her own since she read up on it. She felt like she was getting bronchitis 3 times a year. She has been on Symbicort, this was doing nothing. Well over a year ago. She is on her albuterol inhaler, sometimes the albuterol she has to use a couple of times Certain days she lives on it She uses albuterol at least twice a day. 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 Her asthma symptoms are not well controlled physical exam findings as above. 1. Left lung nodules, 1 is 1.8 centimeter the other is 0.6 centimeter both noncalcified. See discussion below 2. Asthma, moderate persistent, not well controlled 3. Obesity 4. Gastroesophageal reflux disease Patient wanted a 2nd opinion regarding the lung nodules. I spent a good deal of time with the patient explaining the concept of lung nodules, differential, approach to diagnosis, etc. She is a nonsmoker but that does not rule out malignancy. She has strong family history of different malignancies. My recommendation is to start with a PET-CT scan which her primary molding technician recommended. Based on the PET-CT scan further recommendations were to follow. If the pet is positive then she will need biopsy and/or surgical referral If pet is negative options include continued monitoring in 3 months as well as the option of discussion at tumor board. Regarding the asthma seems to be not control. This could be bar partly due to occupational exposures called also be due to obesity and reflux. She should continue proton pump inhibitor. I advised her to use Symbicort 2 puffs twice daily. She is advised to rinse her mouth after each use. She is also advised to increase the use of albuterol up to 6 times daily if needed. The patient was satisfied with the discussion and she will follow-up with her primary molding technician in [place]. She is most welcome to call us back with any other recommendations. REVIEW OF SYSTEMS: GENERAL: No weight loss, malaise or fevers . HEENT: Negative for frequent or significant headaches NECK: Negative for pain or significant neck swelling RESPIRATORY: see HPI CARDIOVASCULAR: Negative for chest pain, leg swelling or palpitations GI: No nausea, vomiting, or diarrhea : No history of dysuria or frequency MUSCULOSKELETAL: chronic arthritis SKIN: Negative for lesions, rash, and itching . PSYCH: Negative for sleep disturbance, mood disorder HEMATOLOGY/LYMPHOLOG Y: Negative for prolonged bleeding, bruising easily . ENDOCRINE: Negative for cold or heat intolerance, polyuria or polydipsia . NEURO: No history of headaches, syncope The remainder of the review of systems is negative. PMH, FAMH, SOCIAL History AND Allergies were verified and updated, and medications were reconciled with the patient at this visit. PAST MEDICAL HISTORY Diagnosis Date - Allergic rhinitis - Arthritis - Asthma - Obesity : PAST SURGICAL HISTORY Procedure Laterality Date - REPAIR UMBILICAL HERNIA : FAMILY HISTORY Problem Relation Age of Onset - Heart disease Mother - Cancer Father : Social History Socioeconomic History Marital status: Single Spouse name: Not on file Number of children: Not on file Years of education: Not on file Highest education level: Not on file Occupational History Not on file Social Needs Financial resource strain: Not on file Food insecurity: Worry: Not on file Inability: Not on file Transportation needs: Medical: Not on file Non-medical: Not on file Tobacco Use Smoking status: Never Smoker Smokeless tobacco: Never Used Substance and Sexual Activity Alcohol use: Not on file Drug use: Not on file Sexual activity: Not on file Lifestyle Physical activity: Days per week: Not on file Minutes per session: Not on file Stress: Not on file Relationships Social connections: Talks on phone: Not on file Gets together: Not on file Attends gnosticism service: Not on file Active member of club or organization: Not on file Attends meetings of clubs or organizations: Not on file Relationship status: Not on file Intimate partner violence: Fear of current or ex partner: Not on file Emotionally abused: Not on file Physically abused: Not on file Forced sexual activity: Not on file Other Topics Concerns: Not on file Social History Narrative Not on file Allergies: ALLERGIES Allergen Reactions - Acetaminophen-Pamab* Intolerance Other reaction(s): Intolerance-unknown - Doxycycline Vomiting - Penicillins Vomiting Current Medications: Current Outpatient Medications Medication Sig Dispense Refill - tiZANidine (ZANAFLEX) 4 mg tablet Take 4 mg by mouth every 6 hours as needed. - celecoxib (CELEBREX) 200 mg capsule Take 200 mg by mouth once daily. - omeprazole (PRILOSEC) 20 mg capsule Take 20 mg by mouth once daily. - levothyroxine (SYNTHROID) 112 mcg tablet Take 112 mcg by mouth daily before breakfast. - Multivitamin capsule Take 1 capsule by mouth once daily. - RESVERATROL-QUERCETI N ORAL Take 500 mg by mouth as needed. - fluticasone (FLOVENT HFA) 44 mcg/actuation inhaler Inhale 1 Puff as instructed twice daily. Rinse mouth out after use 1 Inhaler 5 No current facility-administere d medications for this visit. PHYSICAL EXAM: BP 130/76 Pulse 75 Temp (Src) 98 (Oral) Resp 22 Ht 4' 11 (1.50m) Wt 272 lb (123.4kg) SpO2 95% BMI 54.91 kg/(m2). General appearance: well appearing, in no acute distress, alert Skin: skin color normal, no rashes or lesions Eyes: Anicteric sclera. Extraocular movements are intact. Ears: External ears normal, canals clear Nose: Nasal mucosa appears normal Oropharynx: lips, mucosa, and tongue normal, oropharynx normal Neck: Supple, no adenopathy Respiratory: lungs clear to auscultation, no wheezing or rhonchi Cardiovascular: S1, S2. RRR without murmur. Trace lower extremity edema Gastrointenstinal: Abdomen soft, non-tender Musculoskeletal: Extremities normal. No deformities or skin discoloration. Neuro: Gait normal. Sensation grossly intact. Data Review: I personally reviewed, interpreted, and discussed the labs, PFTs and radiographs with the patient as noted below: Care everywhere CT chest from 12/06/17 - no actual images just report There are 2 noncalcified left lower lobe nodules, which measure 1.9 cm (axial image 49) and 0.5 cm (axial image 53), respectively.??No new lung nodules. The central airways are patent. No acute osseous abnormalities or aggressive osseous lesions. Visualized structures in the lower neck are unremarkable. Visualized chest wall structures are unremarkable.??Large stone in the gallbladder.??Small hiatal hernia.??Normal heart size. No pleural or pericardial effusions. The thoracic aorta is unremarkable. The central pulmonary arteries are unremarkable. No enlarged thoracic lymph nodes. IMPRESSION: 1.??Left lower lobe noncalcified lung nodules are unchanged since November 2016.??No new lung nodules.??Twelve-mon follow-up CT recommended to reevaluate. 2.??Cholelithiasis. 3.??Small hiatal hernia. 05/18/17 CT chest Impression: 1. Stable appearance of the 2 left lower lobe nodules since the previous examination dated 11/12/2016. A repeat examination in 6 months is recommended to ensure stability. 2. Cholelithiasis Chest CT: 11/12/2016 Impression 1.??No evidence of interstitial lung disease or an acute cardiopulmonary process. 2.??Mild diffuse air trapping on expiratory images. 3.??There are 2 noncalcified left lower lobe lung nodules measuring up to 1.8 cm in size.??A PET/CT is recommended to further evaluate. 4.??Hepatic steatosis. 5.??Small hiatal hernia.? PFT: 06/22/2019 I have personally reviewed and my interpretation is as follows: normal spirometry with significant BD response Assessment/Plan: Assessment: - Asthma - a lot of symptoms and albuterol use, however, baseline [place] today was normal. She did have a significant BD response - dyspnea on exertion - likely related to obesity (causing significant restriction) and deconditioning, with some component of asthma possibly - allergic rhinitis - lung nodules - seem to have been found in 2017, close to 2 cm in size for largest nodule; does not sound like a biopsy was ever done, but per patient she was offered chemotherapy? Hx is unclear. She brought some CDs with her but there is also a CT from 2018 I did not see on her CDs today. Differential includes malignancy including indolent carcinoid, vs benign lesion give stability per radiology reports - morbid obesity - BMI 55 Plan: - start low dose Flovent twice a day, rinse mouth out after use - continue albuterol with plan to cut down on how much she is using once Flovent is started. She will keep track of use - DLCO and lung volumes morning of next visit - CT chest to reevaluate her large lung nodules, last image was November 2017. Might benefit from biopsy or at least annual scans for up to 5 years since 2017 to ensure stability - obtain prior pulmonary records, unclear to me why she was being offered chemotherapy according to her (which she refused, but unclear to me if she actually was being offered chemo). I reviewed the CDs that she brought with her today, unable to fully see the nuclear images from the PET scan CD - discussed importance of diet, exercise, weight loss - offered flu vaccine which she states she does not take The above plan was discussed with the patient and all questions were answered. I will see Ms. Cameron for follow-up in 4-6 months or sooner if needed Brittany Hart MD Pulmonary and Critical Care Medicine [facility] [place] June 22, 2019 11:10 AM I spent 80 minutes in the visit, with more than 50% of the total flrl-wd-cano time of the visit in counseling / coordination of care. Normal [facility] Vital Signs Date Time Vital Sign Value Performing Clinician Facility 07-17-2024 11:37-0500 Body height 152.4 cm [facility] 07-17-2024 11:37-0500 Body mass index (BMI) [Ratio] 53.5 kg/m2 [facility] 07-17-2024 11:37-0500 Body temperature 97.3 [degF] [facility] 07-17-2024 11:37-0500 Body weight 124.28 kg [facility] 07-17-2024 11:37-0500 Diastolic blood pressure 84 mm[Hg] [facility] 07-17-2024 11:37-0500 Heart rate 99 /min [facility] 07-17-2024 11:37-0500 SaO2% (BldA) [Mass fraction] 98 % [facility] 07-17-2024 11:37-0500 Systolic blood pressure 130 mm[Hg] [facility] 02-13-2024 16:26-0400 Body height 152.4 cm [facility] 02-13-2024 16:26-0400 Body mass index (BMI) [Ratio] 55.3 kg/m2 [facility] 02-13-2024 16:26-0400 Body temperature 97.6 [degF] [facility] 02-13-2024 16:26-0400 Body weight 128.36 kg [facility] 02-13-2024 16:26-0400 Diastolic blood pressure 82 mm[Hg] [facility] 02-13-2024 16:26-0400 Heart rate 84 /min [facility] 02-13-2024 16:26-0400 SaO2% (BldA) [Mass fraction] 97 % [facility] 02-13-2024 16:26-0400 Systolic blood pressure 134 mm[Hg] [facility] 01-04-2024 15:40-0400 Body temperature 98.2 [degF] [facility] 01-04-2024 15:40-0400 Body weight 127.91 kg [facility] 01-04-2024 15:40-0400 Diastolic blood pressure 84 mm[Hg] [facility] 01-04-2024 15:40-0400 Heart rate 77 /min [facility] 01-04-2024 15:40-0400 Respiratory rate 18 /min [facility] 01-04-2024 15:40-0400 SaO2% (BldA) [Mass fraction] 97 % [facility] 01-04-2024 15:40-0400 Systolic blood pressure 136 mm[Hg] [facility] 02-09-2023 11:10-0400 Body height 152.4 cm Shana Mercedes Other [facility] [employer] Other 02-09-2023 11:10-0400 Body mass index (BMI) [Ratio] 57.02 kg/m2 Shana Mercedes Other [facility] [employer] Other 02-09-2023 11:10-0400 Body temperature 98.4 [degF] Shana Mercedes Other [facility] [employer] Other 02-09-2023 11:10-0400 Body weight 132.45 kg Shana Mercedes Other [facility] [employer] Other 02-09-2023 11:10-0400 Diastolic blood pressure 86 mm[Hg] Shana Mercedes Other [employer] Other 02-09-2023 11:10-0400 Respiratory rate 18 /min Shana Marlenadamaris Other [employer] Other 02-09-2023 11:10-0400 SaO2% (BldA) [Mass fraction] 97 % Shana Mercedes Other [employer] Other 02-09-2023 11:10-0400 Systolic blood pressure 136 mm[Hg] Shana Mercedes Other [employer] Other 11-01-2022 10:10-0500 Body height 152.4 cm Shana Mercedes Other [employer] Other 08-10-2022 12:10-0500 Body height 152.4 cm Shana Mercedes Other [employer] Other 08-10-2022 12:10-0500 Body mass index (BMI) [Ratio] 56.04 kg/m2 Shana Mercedes Other [employer] Other 08-10-2022 12:10-0500 Body temperature 97.9 [degF] Shana Mercedes Other [employer] Other 08-10-2022 12:10-0500 Body weight 130.18 kg Shana Mercedes Other [employer] Other 08-10-2022 12:10-0500 Diastolic blood pressure 82 mm[Hg] Shana Mercedes Other [employer] Other 08-10-2022 12:10-0500 Respiratory rate 18 /min Shana Mercedes Other [employer] Other 08-10-2022 12:10-0500 SaO2% (BldA) [Mass fraction] 98 % Shana Mercedes Other [employer] Other 08-10-2022 12:10-0500 Systolic blood pressure 124 mm[Hg] Shana Mercedes Other [employer] Other 05-12-2022 10:50-0400 Body height 152.4 cm Shana Mercedes Other [employer] Other 05-12-2022 10:50-0400 Body mass index (BMI) [Ratio] 54.97 kg/m2 Shana Mercedes Other [employer] Other 05-12-2022 10:50-0400 Body temperature 98.1 [degF] Shana Mercedes Other [employer] Other 05-12-2022 10:50-0400 Body weight 127.69 kg Shana Mercedes Other [employer] Other 05-12-2022 10:50-0400 Diastolic blood pressure 86 mm[Hg] Shana Mercedes Other [employer] Other 05-12-2022 10:50-0400 Respiratory rate 18 /min Shana Mercedes Other [employer] Other 05-12-2022 10:50-0400 SaO2% (BldA) [Mass fraction] 97 % Shana Mercedes Other [employer] Other 05-12-2022 10:50-0400 Systolic blood pressure 134 mm[Hg] Shana Mercedes Other [employer] Other 01-28-2022 11:50-0400 Body height 152.4 cm Shana Mercedes Other [employer] Other 01-28-2022 11:50-0400 Body mass index (BMI) [Ratio] 53.12 kg/m2 Shana Mercedes Other [employer] Other 01-28-2022 11:50-0400 Body temperature 97.7 [degF] Shana Mercedes Other [employer] Other 01-28-2022 11:50-0400 Body weight 123.38 kg Shana Mercedes Other [employer] Other 01-28-2022 11:50-0400 Diastolic blood pressure 84 mm[Hg] Shana Mercedes Other [employer] Other 01-28-2022 11:50-0400 Respiratory rate 19 /min Shana Mercedes Other [employer] Other 01-28-2022 11:50-0400 SaO2% (BldA) [Mass fraction] 97 % Shana Mercedes Other [employer] Other 01-28-2022 11:50-0400 Systolic blood pressure 134 mm[Hg] Shana Mercedes Other [employer] Other 11-17-2021 15:20-0500 Body height 152.4 cm Shana Mercedes Other [employer] Other 11-17-2021 15:20-0500 Body mass index (BMI) [Ratio] 52.92 kg/m2 Shana Mercedes Other [employer] Other 11-17-2021 15:20-0500 Body temperature 97.6 [degF] Shana Mercedes Other [employer] Other 11-17-2021 15:20-0500 Body weight 122.93 kg Shana Marlenadamaris Other [employer] Other 11-17-2021 15:20-0500 Diastolic blood pressure 86 mm[Hg] Shana Mercedes Other [employer] Other 11-17-2021 15:20-0500 Respiratory rate 18 /min Shana Marlenadamaris Other [employer] Other 11-17-2021 15:20-0500 SaO2% (BldA) [Mass fraction] 99 % Shana Mercedes Other [employer] Other 11-17-2021 15:20-0500 Systolic blood pressure 134 mm[Hg] Shana Mercedes Other [employer] Other 07-29-2021 13:40-0500 Body height 152.4 cm Shana Mercedes Other [employer] Other 07-29-2021 13:40-0500 Body mass index (BMI) [Ratio] 52.63 kg/m2 Shana Mercedes Other [employer] Other 07-29-2021 13:40-0500 Body temperature 97.3 [degF] Shana Mercedes Other [employer] Other 07-29-2021 13:40-0500 Body weight 122.25 kg Shana Mercedes Other [employer] Other 07-29-2021 13:40-0500 Diastolic blood pressure 88 mm[Hg] Shana Mercedes Other [employer] Other 07-29-2021 13:40-0500 Respiratory rate 18 /min Shana Mercedes Other [employer] Other 07-29-2021 13:40-0500 SaO2% (BldA) [Mass fraction] 97 % Shana Mercedes Other [employer] Other 07-29-2021 13:40-0500 Systolic blood pressure 132 mm[Hg] Shnaa Mercedes Other [employer] Other Encounters Encounter Date Encounter Type Care Provider Facility Start: 07-17-2024 End: 07-17-2024 [facility] Work Phone: Start: 07-17-2024 End: 07-17-2024 Patient encounter procedure [facility] Physician [facility] Work Phone: Start: 02-13-2024 End: 02-13-2024 [facility] Work Phone: Start: 02-13-2024 End: 02-13-2024 Patient encounter procedure [facility] Physician [facility] [place] Work Phone: Start: 01-04-2024 End: 01-04-2024 [facility] Work Phone: Start: 01-04-2024 End: 01-04-2024 Patient encounter procedure [facility] [place] Work Phone: Start: 12-29-2023 End: 12-30-2023 Emergency department patient visit [facility] Start: 11-22-2023 Non-patient / Non-visit [facility] Physician [facility] [employer] Work Phone: Start: 09-14-2023 End: 09-14-2023 ambulatory Shana Mercedes Other [employer] Other Start: 01-03-2024 Telephone encounter Shana Mercedes [facility] [place] Start: 06-08-2023 End: 06-08-2023 ambulatory Shana Mercedes Other [employer] Other Start: 06-08-2023 Telephone encounter Shana Mercedes [facility] [place] Start: 03-22-2023 End: 03-22-2023 ambulatory Shana Mercedes Other [employer] Other Start: 03-22-2023 Telephone encounter Shana Mercedes [facility] [place] Start: 02-23-2023 End: 02-23-2023 ambulatory Shana Mercedes Other [employer] Other Start: 02-23-2023 Telephone encounter Shana Mercedes [facility] [place] Start: 02-09-2023 End: 02-09-[address] SHANA MERCEDES Facility: Start: 02-09-2023 Office outpatient vi sit 15 minutes Shana Mercedes [facility] [place] Start: 02-09-2023 Telephone encounter Shana Mercedes [facility] [place] Start: 11-01-2022 End: 11-01-2022 ambulatory Shana Mercedes Other [employer] Other Start: 11-01-2022 Telephone encounter Shana Mercedes [facility] [place] Start: 09-07-2022 End: 09-07-2022 ambulatory Shana Mercedes Other [employer] Other Start: 09-07-2022 Telephone encounter Shana Mercedes [facility] [place] Start: 08-12-2022 End: 08-12-2022 ambulatory Shana Mercedes Other [employer] Other Start: 08-12-2022 Telephone encounter Shana Mercedes [facility] [place] Start: 08-10-2022 Office outpatient vi sit 15 minutes Shana Mercedes [facility] [place] Start: 08-10-2022 End: 08-10-2022 ambulatory Shana Mercedes Facility:[facility] Start: 08-10-2022 End: 08-10-2022 ambulatory DO Shana Mercedes Work Phone: [facility] Work Phone: Start: 08-10-2022 End: 08-10-2022 Departed Referred DO Shana Mercedes Work Phone: [facility] [place] Start: 07-08-2022 End: 07-08-[address] SHANA WINTERS Facility:[facility] Start: 07-06-2022 End: 07-06-2022 ambulatory Shana Mercedes Other [employer] Other Start: 07-06-2022 Telephone encounter Shana Mercedes [facility] [place] Start: 06-30-2022 End: 07-01-[address] SHANA MERCEDES Facility:[facility] Start: 06-01-2022 End: 06-02-2022 ambulatory CRISTINE Bean Facility:[facility] Start: 05-12-2022 End: 05-12-2022 ambulatory Shana Mercedes Other [employer] Other Start: 05-12-2022 Office outpatient vi sit 15 minutes Shana Mercedes [facility] [place] Start: 04-23-2022 End: 04-23-2022 ambulatory Shana Mercedes Other [employer] Other Start: 04-23-2022 Telephone encounter Shana Mercedes [facility] [place] Start: 01-28-2022 End: 01-28-2022 ambulatory Shana Mercedes Other [employer] Other Start: 01-28-2022 Office outpatient vi sit 25 minutes Shana Mercedes [facility] [place] Start: 11-20-2021 End: 11-20-2021 ambulatory Shana Mercedes Other [employer] Other Start: 11-20-2021 Telephone encounter Shana Mercedes [facility] [place] Start: 11-17-2021 End: 11-17-2021 ambulatory Shana Marlenadamaris [facility] [employer] Other Start: 11-17-2021 Office outpatient vi sit 15 minutes Shana Mercedes [facility] Start: 07-29-2021 End: 07-29-2021 ambulatory Shana Mercedes Other [facility] [employer] Other Start: 07-29-2021 Office outpatient vi sit 25 minutes Shana Mercedes [facility] Procedures Date Procedure Procedure Detail Performing Clinician Urine culture DO Shana Carrasco n Work Phone: Plan of Treatment Date Care Activity Detail Author Bacteria identified in Urine by Culture [facility] Work Phone: Comprehensive metabo lic 2000 panel - Serum or Plasma [facility] enter [facility] Immunizations Immunization Date Immunization Notes Care Provider Fa cility 05-19-2022 COVID-19 Moderna (BIvalent) Shana Mercedes Other [facility] 07-27-2021 COVID-19 Vaccine Mod maya - Documentation Purposes Only Shana Mercedes Other [facility] 12-11-2020 COVID-19 Vaccine Mod amya - Documentation Purposes Only Shana Mercedes Other [facility] 11-13-2020 COVID-19 Vaccine Mod maya - Documentation Purposes Only Shana Mercedes Other [facility] Payers Date Payer Category Payer Medicare [id number] 2021 Self-pay [id number] 1960 Unknown [id number] .16.84 [id number] 1960 Unknown [id number] .16.84 [id number] 1960 Unknown [id number] .16.84 [id number] 1960 Unknown [id number] 2.16.84 [id number] 1960 Unknown [id number] 2.16.8 [id number] 1960 Unknown [id number] 2.16.8 [id number] 1957 Medicare [id number] 2. [id number] 1957 Medicare [id number] Medicaid [place] [employer] [id number] Unknown [id number] 2.16.8 [id number] Unknown [id number] 2.16.8 [id number] Social History Date Type Detail Facility Unknown if ever smoked [employer] Other Sex Assigned At Sex Assigned At Bir th [employer] Other Start: 1960 Sex Assigned At Female F [facility] Start: 01-04-2024 End: 07-09-2024 Tobacco smoking status NHIS Never smoked tobacco (finding) [facility] Clinical Notes 07-29-2021 to 01-04-2024 Note Date & Type Note Facility 01-04-2024 Evaluation note Authored January 04, 2024 5:0 4pm The above note written by __ _Chad Ruiz____ acting as human recorder, note dictated by Dr. Rosen .I performed the above HPI, ROS, and Examination. I formulated and dictated the treatment plan and was present for entire encounter. Shana Mercedes D.O. [facility] Work Phone: [phone]) 563-260909-27-2023 Evaluation note* Encounter Date Diagnosis Assessment Notes Treatment Notes Treatment Clinical Notes May, Hip pain (ICD-10 - M25.559) right hip [facility] [employer] Other 05-31-2023 Evaluation note* Encounter Date Diagnosis Assessment Notes Treatment Notes Treatment Clinical Notes January, Shoulder pain, left (ICD-10 - M25.512) [employer] Other 05-31-2023 Evaluation note* Encounter Date Diagnosis Assessment Notes Treatment Notes Treatment Clinical Notes January, Shoulder pain, left (ICD-10 - M25.512) She voices that she saw a specialist (Dr. Hart) for her right shoulder in the past. Her symptoms in her left shoulder are similar to the right shoulder. She cannot lay on the left shoulder due to pain and has to lay on her back because she cannot lay on the right side. I will order an x-ray of the left shoulder to rule out abnormalities. She can raise her arm above her head but can feel it and it bothers her. She cannot scratch behind her back very well. She has some tenderness noted on exam. I suspect she may have impingement syndrome. January, Arm pain, left (ICD-10 - M79.602) January, Weight gain (ICD-10 - R63.5) She voices that she has gained weight since last seen. She admits she has not been working since December and feels this has contributed to the weight gain. January, Asthma (ICD-10 - J45.909) She voices that she was told by Dr. Nicolas not to return unless she has trouble breathing. She found a natural supplement called Easy Breathing so she has been using this. January, Other She takes Dehydrated Bee Pollen and this helps with her energy. [employer] Other 02-20-2023 Evaluation note* Encounter Date Diagnosis Assessment Notes Treatment Notes Treatment Clinical Notes Oct, Acute sinusitis (ICD-10 - J01.90) I will treat her with an antibiotic at this time. Guidance is given on how to take above medication. She is encouraged to eat yogurt daily while on ATB to prevent GI upset. Rest, push fluids. Other than yogurt avoid dairy to keep secretions thin and make them easier to expel. She can try popsicles instead of ice cream. Oct, Cough (ICD-10 - R05.9) She is to keep me posted with how she is doing this week, if she feels she needs treatment with Prednisone she should let me know. Right now she does not feel she needs this yet. Oct, Fever (ICD-10 - R50.9) She had a fever as high as 101. She can take Tylenol if needed. Oct, Other 10:08 AM - 10:1 9 AM She voices that she has given up chocolate and has not had any in six days in order to work on weight loss. [employer] Other 12-27-2022 Evaluation note* Encounter Date Diagnosis Assessment Notes Treatment Notes Treatment Clinical Notes Aug, Asthma exacerbation (ICD-10 - J45.901) I am going to treat her with above medications to help decrease inflammation and calm things down. She is to continue with her inhaler/nebulizer treatments. She does have to stop the Celebrex while she is on the Prednisone and cannot take any NSAID medication while on Prednisone. She can take Tylenol if needed. Side effects/risks/benef its of medication were reviewed. She is off work until Tuesday09-10-22 and would like a note for 09-10-22 in case she is still coughing. I did provide her with an off work note for 09-10 and 09-11-22. Aug, Cough (ICD-10 - R05.9) Aug, Other 2:53 PM - 3:05 PM [employer] Other 12-01-2022 Evaluation note* Encounter Date Diagnosis Assessment Notes Treatment Notes Treatment Clinical Notes Aug, Hematuria (ICD-10 - R31.9) [employer] Other 11-29-2022 Evaluation note* Encounter Date Diagnosis Assessment Notes Treatment Notes Treatment Clinical Notes Jul, Hematuria (ICD-10 - R31.9) She was seen in the ER on 07-08-22 and was treated for a UTI with Keflex and voices that she did improve with that treatment. She felt good until a couple days ago when she developed symptoms again. I will send her urine out for further evaluation. She can call later this week for the final urine culture results. I am going to start her on medication. She has pain in her lower abdomen but voices that the pain feels as if it is worsening. She was told that if the pain worsens or she has severe back pain, or has a fever (100.5) or vomits she must go to the ER for evaluation. Guidance is given on how to take the medication. I did ask her to have lab drawn 3-4 days after she has finished the antibiotic so she can have her urine rechecked. Jul, Abdominal pain (ICD-10 - R10.9) Any worsening of pain she needs to go to the ER for evaluation. Jul, Hypothyroidism (ICD-10 - E03.9) She was not able to complete her labs for todays appointment. Jul, Asthma (ICD-10 - J45.909) She does not see Dr. Nicolas for one year. Jul, Asthma (ICD-10 - J45.909) She does not see Dr. Nicolas for one year. Jul, Asthma (ICD-10 - J45.909) She does not see Dr. Nicolas for one year. Jul, Asthma (ICD-10 - J45.909) She does not see Dr. Nicolas for one year. Jul, Asthma (ICD-10 - J45.909) She does not see Dr. Nicolas for one year. Jul, Asthma (ICD-10 - J45.909) She does not see Dr. Nicolas for one year. [employer] Other 08-31-2022 Evaluation note* Encounter Date Diagnosis Assessment Notes Treatment Notes Treatment Clinical Notes Apr, Asthma (ICD-10 - J45.909) She saw Dr. Huynh [place] [address] Hart a molding technician two years later (2018) but was supposed to have a repeat PET scan done and was to use Symbicort. She had used Symbicort before which did not work for her in the past, so she was not going to do this. She has never follow up with Dr. Huynh or Dr. Hart since. She voices that she is having trouble with her breathing again. She has trouble completing her sentences due to her breathing. We discussed her seeing a molding technician such as Dr. Nicolas for evaluation. I do feel that the nodules need to be followed, and she is due to have scans repeated, all of this is something she can discuss with the molding technician. She also feels that her inactivity contributes to her breathing issue, she has gained weight. She agrees to the referral to see Dr. Nicolas. Apr, Lung nodules (ICD-10 - R91.8) left lower lobe x2 She had a PET scan done in January 2017 but does not recall if she had a repeat done in [address] Hart. Apr, Headache (ICD-10 - R51.9) She voices that she has just started to get a headache above her eyes. She has yellow to green sinus drainage that is dry. She thinks that the headache is caused by her coughing. Apr, Acute sinusitis (ICD-10 - J01.90) I would like to treat her with a Z catalino to treat anything bacterial she may be fighting. Guidance is given on how to take the medication. She is encouraged to eat yogurt daily while on ATB to prevent GI upset. Rest, push fluids. Apr, Other She continues t o take Chito Max which provides her with relief from the right arm pain she has, she is able to lay on the right side of her body without significant pain. [employer] Other 08-12-2022 Evaluation note* Encounter Date Diagnosis Assessment Notes Treatment Notes Treatment Clinical Notes Apr, Cervical pain (ICD-10 - M54.2) [employer] Other 05-19-2022 Evaluation note* Encounter Date Diagnosis Assessment Notes Treatment Notes Treatment Clinical Notes January, Hypothyroidism (ICD-10 - E03.9) Discussed thyroid results with patient today. TSH is 0.36. Free T3 is 3.55. Free T4 is 0.88. We discussed that her thyroid still appears to be over replaced. I did recommend that we cut her dose down to 100 MCG daily but she voices that up until recently she had been feeling energized and now feels tired. She is agreeable to decreasing her dose. Guidance is given on how to take the lower dose. January, Hyperlipidemia (ICD-10 - E78.5) Discussed cholesterol results with patient today. Total is 234. HDL is 62. LDL is 144. Triglycerides are 141. I would like to see her LDL between 70-100. She voices that she has returned to eating 2 candy bars per day. I did highly recommend that she return to taking the statin medication daily. She does agree to let me send the statin medication in to the pharmacy for her. I did recommend that she actually take the medication daily. She voices that she will think about this. January, Shoulder pain, right (ICD-10 - M25.511) Again, she voices that since she started to use the CalMax supplement she has had much better range of motion with her right shoulder. January, Asthma (ICD-10 - J45.909) Continue with above medications as needed/as directed. January, GERD (gastroesophageal reflux disease) (ICD-10 - K21.9) Continue with above medication as directed. January, Nocturia (ICD-10 - R35.1) January, Other predatory animal exterminator (current) drug therapy (ICD-10 - Z79.899) January, Weight gain (ICD-10 - R63.5) January, Cervical pain (ICD-10 - M54.2) Continue with the Celebrex daily as directed. January, Edema (ICD-10 - R60.9) She voices that she did take the Lasix and Klor Con but she voices that it did not do much for her. She found a powder called CalMax which she has started taking and this has helped her leg cramps and also her right shoulder pain. She does have edema noted on exam but voices that she will only use the Lasix and Klor Con when she feels she needs it. She still feels the CalMax provides her with greater comfort. January, Other Her urine did appear to be cloudy but was not infected and did not show any blood in it. I did recommend that she stay well hydrated with plenty of water daily. She admits that she did not drink alot of water prior to giving the urine sample. She will try to stay well hydrated. [employer] Other 03-08-2022 Evaluation note* Encounter Date Diagnosis Assessment Notes Treatment Notes Treatment Clinical Notes Nov, Urinary frequency (ICD-10 - R35.0) I would like to treat her with an antibiotic to treat her urine. Will send the urine for further evaluation, she can call later this week for the final urine culture results. She is encouraged to push fluids and rest. If she develops a fever, severe back pain or vomits she should go to the ER for evaluation. Guidance is given on how to take the medication. Eat yogurt daily while on ATB to prevent GI upset. She took Macrobid for her last urine infection and it upset her stomach but she was able to tolerate it. She is agreeable to taking this again and feels she can deal with the upset stomach. I did recommend that she take the medication with plenty of food. Nov, Urinary incontinence (ICD-10 - R32) Nov, Fatigue (ICD-10 - R53.83) She noticed a few days ago that she was very fatigued and had low back pain. She also had urinary incontinence while walking to the bathroom which is not normal for her. Nov, Cystitis (ICD-10 - N30.90) Nov, Suspicious nevus (ICD-10 - D22.9) Noted on right arm, she voices that it does bleed and does not heal. I did recommend that she see a brazer induction. She agrees. Will provide her with a phone number for dermatology. Nov, Other She had a heart cath done, there is some tenderness in the groin area and voices that the dog jumps on her lap and it still hurts. It was done six weeks ago. The area does not bleed. It can be normal for this to still be tender. [employer] Other 11-17-2021 Evaluation note* Encounter Date Diagnosis Assessment Notes Treatment Notes Treatment Clinical Notes Jul, Hypothyroidism (ICD-10 - E03.9) Discussed thyroid results with patient today. TSH is 0.41. Free T3 is 3.16. Free T4 is 0.99. She voices that there are times she has forgotten to take the medication. For now we will keep her dose the same. Recommend she take the medication daily as directed. Will repeat lab in six months. Jul, Hyperlipidemia (ICD-10 - E78.5) Discussed cholesterol results with patient today. Total is 212. HDL is 54. LDL is 133. Triglycerides are 123. I would like to see her LDL between 70-100. She voices that she is not taking the Pravastatin. I did highly recommend that she take the medication daily as directed. Watch intake of carbs and sugars. Stay active. Jul, Edema (ICD-10 - R60.9) She would like to have Lasix on hand to use for when she has lower extremity edema. Guidance is given on how to take the medication. Any day she needs the Lasix she will need to take Klor Con. She should only use these on the days she needs them. After she has been on the medication for a month she should have lab drawn, she can call for results. Jul, Asthma (ICD-10 - J45.909) Continue to use the medication as needed. Jul, GERD (gastroesophageal reflux disease) (ICD-10 - K21.9) She does use the Omeprazole daily as directed. She voices that she eats alot of chocolate so she does need the medication. Jul, Weight loss (ICD-10 - R63.4) Jul, Other predatory animal exterminator (current) drug therapy (ICD-10 - Z79.899) Jul, Arm pain, right (ICD-10 - M79.601) Jul, Cervical pain (ICD-10 - M54.2) She does continue to use and benefit from the Celebrex. She uses the Tizanidine as needed. Jul, Encounter for screening mammogram for breast cancer (ICD-10 - Z12.31) Provided her with an order to have a bilateral mammogram done. Jul, Nocturia (ICD-10 - R35.1) Jul, Chest pain (ICD-10 - R07.9) She saw Dr. Tan for evaluation who placed her on above medications. She will be having further testing done. She has not started any of the medications yet. [employer] Other Evaluation noteNo [employer] Other Evaluation noteNo assessment information available [facility] Work Phone: Evaluation note* Diagnosis Onset Date Resolution Status Concussion acute Edema acute Fall acute Knee pain acute Leg pain, left acute Shoulder pain acute [facility] Work Phone: Evaluation note* Diagnosis Onset Date Resolution Status Cellulitis acute Edema acute Hypothyroidism acute Laceration acute [facility] Work Phone: History general Narrative - Reported* Type Description Date Medical History Arthritis Medical History Measles/Mumps, Chickenpox Medical History Thyroid Trouble Medical History Allergies Medical History Asthma Medical History Eye Disease Medical History Sensitivity to Chemicals Medical History Neck or Back Trouble Medical History Knee Problems Medical History Fractures/Dislocations per Hx Fo rm Medical History Asthma exacerbation Medical History Bloodwork 11-18-12; cbc, cmp, lipi d panel, free t4 Medical History refuses colonoscopy 10-09-15 Medical History refuses colonoscopy 01-13-16 Surgical History Cataracts removed age 13 Surgical History Upper teeth removed/upper dentu re plate Surgical History Umbilical Hernia 1 1/2 year old Surgical History 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 Surgical History Cataracts Removed age 13 Surgical History Upper teeth removed/ upper dent ure plate Surgical History Umbilical Hernia 1 1/2 y/o Surgical History uterine polyps removed 10/26/19 Hospitalization History see above surgical histo ry Hospitalization History [facility] - back pain - tore muscle 09/2015 [employer] Other history general Narrative - Reported* Type Description Date Medical History Arthritis Medical History Measles/Mumps, Chickenpox Medical History Thyroid Trouble Medical History Allergies Medical History Asthma Medical History Eye Disease Medical History Sensitivity to Chemicals Medical History Neck or Back Trouble Medical History Knee Problems Medical History Fractures/Dislocations per Hx Fo rm Medical History Asthma exacerbation Medical History refuses colonoscopy 10-09-15 Medical History refuses colonoscopy 01-13-16 Surgical History Cataracts removed age 13 Surgical History Upper teeth removed/upper dentu re plate Surgical History Umbilical Hernia 1 1/2 year old Surgical History 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 Surgical History Cataracts Removed age 13 Surgical History Upper teeth removed/ upper dent ure plate Surgical History Umbilical Hernia 1 1/2 y/o Surgical History uterine polyps removed 10/26/19 Hospitalization History see above surgical histo ry Hospitalization History [facility] - back pain - tore muscle 09/2015 [employer] Other Summary Purpose Family History Relationship Condition Age at Onset Recorded Date/T diana father Malignant neoplasm Unknown Unknown family member Unknown grandparent Unknown Heart disease Unknown Malignant neoplasm Unknown Not Specified Unknown Osteoarthritis Unknown sister Malignant neoplasm Unknown Family history of kidney stones Unknown Relationship Condition Age at Onset Recorded Date/T diana father Malignant neoplasm Unknown Unknown family member Unknown grandparent Unknown Heart disease Unknown Malignant neoplasm Unknown mother Unknown Osteoarthritis Unknown sister Malignant neoplasm Unknown Family history of kidney stones Unknown Advance Directives Advance Directive Response Recorded Date/ Time Advance Directives No November 23, 7:05am Advance Directive Response Recorded Date/ Time Advance Directives No November 23, 8:05am Advance Directive Response Recorded Date/ Time Advance Directives No July 09, 2024 8:47am Reason for Referral Reason appt consult to scar[facility] kelly lt shoulder pain/possible injections Diagnosis 1 Shoulder pain, left (M25.512) Referral Organization [facility] Referring Provider First Name Shana Referring Provider Last Name Mago Referring Provider Specialty Family Nilesh to Referred Organization [facility] Referred Provider Anderson Hart Referred Address ,[place], [place],[address] Referred Provider Specialty Orthopedic S urgery Referral Priority Routine General Notes Beena Wooten 02/09/2023 04:05:16 PM > referral hard faxed to Dr Hart's office with visit note, xray report, med list and demographics. pt understands she will be contacted to schedule this appt. Reason appt pt needs cons ult to discuss uncontrolled asthma and lung nodules Diagnosis 1 Asthma (J45.909) Referral Organization [facility] [employer] [place] Referring Provider First Name Shana Referring Provider Last Name Mago Referring Provider Specialty Family Nilesh to Referred Organization [facility] Referred Provider Cristine Nicolas Referred Address [address] [place], [place],[address] Referred Provider Specialty Pulmonary [facility] Referral Priority Routine General Notes Beena Wooten 05/12/2022 11:19:58 AM > referral faxed with visit note, last CT chest and PFT reports and insurance cards. pt understands that she will be contacted to schedule this appt. Chief Complaint and Reason for Visit Chief Complaint Amb Documentation Knee/nose pain Reason for Visit Concussion Edema Fall Knee pain Leg pain, left Shoulder pain Chief Complaint Amb Documentation Knee/nose pain discuss continued knee pain Reason for Visit Concussion Edema Fall Knee pain Leg pain, left Shoulder pain Looney's cyst of knee Knee pain Chief Complaint evaluate leg Reason for Visit Cellulitis Edema Hypothyroidism Laceration Additional Source Comments INFORMATION SOURCE (unrecogn ized section and content) DATE CREATED AUTHOR 12/14/2019 [facility] DATE CREATED AUTHOR AUTHOR'S ORGANIZ ATION 08/22/2022 [facility] DATE CREATED AUTHOR AUTHOR'S ORGANIZ ATION 02/19/[address] [facility] DATE CREATED AUTHOR AUTHOR'S ORGANIZ ATION 12/30/2023 [facility] REASON FOR VISIT (unrecogniz ed section and content) review labclinicalpossible U TIreview labsClinical Acute Medicinediscuss breathingClinical Acute IllnessClinicalreview labscoughnasal congestion/sore throatClinicallt arm painhandicap placardrashletter/rt hip painRefills Care Teams (unrecognized sec tion and content) Team Status: Active Member Role Status Miguel Mercedes DO Primary Care Provider Active Team Status: Inactive Member Role Status Miguel Mercedes DO Primary Care Provide r, Attending Provider Active Start: July 17, 2024 End: July 17, 2024 Team Status: Inactive Member Role Status Miguel Mercedes DO Attending Provider Active Team Status: Active Member Role Status Miguel Mercedes DO Primary Care Provider Active Team Status: Active Member Role Status Dates Rodríguez Cotton MD Primary Care Provider Active Start: November 22, 2023 Chad Ruiz LPN Attending Provider Active St art: November 22, 2023 Team Status: Inactive Member Role Status Miguel Mercedes DO Primary Care Provide r, Attending Provider Active Start: January 04, 2024 End: January 04, 2024 Team Status: Inactive Member Role Status Miguel Mercedes DO Primary Care Provide r, Attending Provider Active Start: February 13, 2024 End: February 13, 2024 Team Status: Inactive Member Role Status Miguel Mercedes DO Primary Care Provide r, Attending Provider Active Start: July 17, 2024 End: July 17, 2024 Goals (unrecognized section and content) Goals may be documented in a n alternate section FOR RECORDS PERTAINING TO PATIENTS WHO ARE OR HAVE BEEN ENROLLED IN A CHEMICAL DEPENDENCY/SUBSTANCEABUSE PROGRAM, SOME INFORMATION MAY BE OMITTED. This clinical summary was aggregated from multiple sources. Caution should be exercised in using it in the provision of clinical care. This summary normalizes information from multiple sources, and as a consequence, information in this document may materially change the coding, format and clinical context of patient data. In addition, data may be omitted in some cases. CLINICAL DECISIONS SHOULD BE BASED ON THE PRIMARY CLINICAL RECORDS. [facility] [employer] [facility]. provides no warranty or guarantee of the accuracy or completeness of information in this document.
--- NOTE | 2024-09-06 13:11 | US_ITS ---
The [address] [address] Patient Name: MIGUEL ANGEL CAMERON MRN: [id number] date: 1960 Sex: F Assigned Patient Location: ED.MAIN Current Patient Location: Accession/Order Number: [id number] Exam Date: 09/06/2024 13:12 Report Date: 09/06/2024 14:16 At the request of: CHANTE EGAN Procedure: US venous doppler LE LT EXAMINATION: US venous doppler LE LT HISTORY: DVT COMPARISON: No relevant comparison available. FINDINGS: REGION: Left lower extremity THROMBI: None. COMPRESSIBILITY: Normal compressibility. FLOW: Normal waveform and antegrade flow between 5 and 20 cm/s. OTHER: None. US/US venous doppler LE LT IMPRESSION: 1. No deep vein thrombus within the left lower extremity. Electronically authenticated by: SANJEEV ALMANZA Date: 09/06/2024 14:16
--- NOTE | 2024-09-06 13:12 | ED.LOWEXI1 ---
HPI HPI - Extremity Injury (Lower) General Chief Complaint: Extremity Injury, Lower Stated Complaint: LOWER EXTREMITY PAIN Time Seen by Provider: 09/06/24 13:07 Source: patient Mode of arrival: walk-in Limitations: no limitations History of Present Illness HPI Narrative: Patient is a 64-year-old obese female who presents to the emergency department for 2-day history of redness to the back of the left leg. She denies any open wounds or drainage. She has not had any fevers or vomiting. No medications taken prior to arrival other than her regular Lasix. She states she called her doctor's office this morning to be seen in the office and they referred her to the emergency department. She denies any history of diabetes. She has no significant pain. She is sitting at the bedside chair reading a book at time of evaluation. Related Data Home Medications ?Medication ?Instructions ?Recorded ?Confirmed albuterol sulfate 2.5 mg/3 mL 2.5 mg inhalation Q6H PRN 09/06/24 09/06/24 (0.083 %) solution for nebulization shortness of breath or wheezing albuterol sulfate 90 mcg/actuation 2 inh inhalation Q4H PRN shortness 09/06/24 09/06/24 aerosol inhaler of breath or wheezing furosemide 20 mg tablet 20 mg PO DAILY 09/06/24 09/06/24 levothyroxine 100 mcg tablet 100 mcg PO DAILY 09/06/24 09/06/24 omeprazole 20 mg capsule,delayed 20 mg PO DAILY 09/06/24 09/06/24 release potassium chloride 10 mEq 20 meq PO DAILY 09/06/24 09/06/24 tablet,extended release(part/cryst) Previous Rx's ?Medication ?Instructions ?Recorded oxycodone 5 mg tablet 5 mg PO Q6H PRN pain 3 days #12 01/02/24 tabs cephalexin 500 mg capsule 500 mg PO Q8H 10 days #30 caps 09/06/24 sulfamethoxazole 800 1 tab PO BID 10 days #20 tabs 09/06/24 mg-trimethoprim 160 mg tablet (Bactrim DS) Allergies Allergy/AdvReac Type Severity Reaction Status Date / Time pamabrom (From [facility]) Allergy Severe Unknown Verified 09/06/24 12:51 Penicillins Allergy Unknown Unknown Verified 09/06/24 12:51 Opioid HPI Opioid Management Most Recent Pain and Opioid Data: No Data to Display Review of Systems ROS Constitutional Denies: fever or chills Ears, nose, mouth, and throat Denies: throat pain Cardiovascular Denies: chest pain Respiratory Denies: shortness of breath or cough Gastrointestinal Denies: nausea or vomiting Musculoskeletal Denies: back pain Integumentary/Breast Reports: rash and redness Neurological Denies: numbness in extremities or weakness in extremities Hematologic/Lymphatic Denies: easy bruising or easy bleeding PFSH PFSH Social History Little interest or pleasure in doing things: not at all Feeling down, depressed, or hopeless: not at all Exam Narrative Exam Narrative: Gen.: Awake, alert, in no distress, morbidly obese female sitting in a bedside chair reading a book Head: Normocephalic, atraumatic ENT: Moist mucous membranes Respiratory: No respiratory distress Extremities: Bilateral calves are edematous but symmetric with left posterior calf distally just above the ankle, circular area of redness. No circumferential erythema. No open wounds or drainage. No red streaking. Psych: Normal mood and affect Neuro: No focal neuro deficit Skin: Warm, dry, intact Constitutional Vital Signs, click to edit/add: Last Vital Signs Temp 97.8 F 09/06/24 12:54 Pulse 86 09/06/24 12:54 Resp 20 09/06/24 12:54 BP 138/86 09/06/24 12:54 Pulse Ox 97 09/06/24 12:54 O2 Del Method Room Air 09/06/24 12:54 Course Vital Signs Vital signs: Vital Signs Temperature 97.8 F 09/06/24 12:54 Pulse Rate 86 09/06/24 12:54 Respiratory Rate 20 09/06/24 12:54 Blood Pressure 138/86 09/06/24 12:54 Pulse Oximetry 97 09/06/24 12:54 Oxygen Delivery Method Room Air 09/06/24 12:54 Temperature 97.8 F 09/06/24 12:54 Pulse Rate 86 09/06/24 12:54 Respiratory Rate 20 09/06/24 12:54 Blood Pressure 138/86 09/06/24 12:54 Pulse Oximetry 97 09/06/24 12:54 Oxygen Delivery Method Room Air 09/06/24 12:54 MDM - Extremity Injury (Lower) MDM Narrative Medical decision making narrative: Vital signs are within normal limits, exam is benign with a small area of redness to the left posterior calf distally. Ultrasound with no evidence of DVT and basic lab studies are normal. Patient will be placed on antibiotics, encouraged to use warm compresses. Follow-up with PCP and return to the ER if symptoms change or worsen. SUPERVISED APC VISIT, PHYSICIAN ATTESTATION: Based on the medical record the care appears appropriate. ? Medical Records Attestation: I reviewed the patient's medical records. Lab Data Attestation: I reviewed the patient's lab results. Discharge Plan Discharge Chief Complaint: Extremity Injury, Lower Clinical Impression: Cellulitis of left leg Patient Disposition: Home, Self-Care Time of Disposition Decision: 13:54 Condition: Good Prescriptions / Home Meds: New sulfamethoxazole-trimethoprim [Bactrim DS] 800-160 mg tablet 1 tab PO BID 10 Days Qty: 20 0RF cephalexin 500 mg capsule 500 mg PO Q8H 10 Days Qty: 30 0RF No Action oxycodone 5 mg tablet 5 mg PO Q6H PRN (Reason: pain) 3 Days Qty: 12 0RF albuterol sulfate 2.5 mg /3 mL (0.083 %) solution for nebulization 2.5 mg inhalation Q6H PRN (Reason: shortness of breath or wheezing) albuterol sulfate 90 mcg/actuation HFA aerosol inhaler 2 inh INHALATION Q4H PRN (Reason: shortness of breath or wheezing) furosemide 20 mg tablet 20 mg PO DAILY levothyroxine 100 mcg tablet 100 mcg PO DAILY omeprazole 20 mg capsule,delayed release(DR/EC) 20 mg PO DAILY potassium chloride 10 mEq tablet,ER particles/crystals 20 meq PO DAILY Print Language: [place] Citizen Instructions: Cellulitis (ED) Additional Instructions: Elevate the leg, apply warm compresses and follow up with your doctor for a recheck next week. Please take all of your antibiotics Referrals: SHANA MERCEDES [Primary Care Provider] - 1 week
--- NOTE | 2024-09-06 13:29 | PC.NURSE ---
Pain to BLE, left posterior lower leg has area of redness.
[2024-09-06 13:43] LABS: Basophils Absolute Auto 0.1 10^3/uL (0.0-0.1); Basophils Percent Auto 0.8 % (0.2-2.0); Eosinophils Absolute Auto 0.2 10^3/uL (0.0-0.7); Eosinophils Percent Auto 2.5 % (0.9-7.0); Hematocrit 41.3 % (36.0-48.0); Hemoglobin 13.2 g/dL (12.0-16.0); Immature Granulocytes Abs Auto 0.02 10^3/uL (0.00-0.03); Immature Granulocytes Pct Auto 0.2 % (0.0-0.5); Lymphocytes Absolute Auto 2.6 10^3/uL (1.2-3.8); Lymphocytes Percent Auto 29.5 % (20.5-60.0); Mean Corpuscular Hemoglobin 28.4 pg (26.7-34.0); Mean Platelet Volume 9.2 fL (9.5-13.5); Monocytes Absolute Auto 0.5 10^3/uL (0.3-0.8); Monocytes Percent Auto 5.4 % (1.7-12.0); Neutrophils Absolute Auto 5.3 10^3/uL (1.4-6.5); Neutrophils Percent Auto 61.6 % (43.0-75.0); Platelet Count 278 10^3/uL (150-450); Red Blood Count 4.64 10^6/uL (4.20-5.40); Red Cell Distribution Width 13.7 % (11.0-15.0); White Blood Count 8.7 10^3/uL (4.0-11.0)
[2024-09-06 13:47] LABS: Anion Gap 11.9; BUN Creatinine Ratio 13.2; Calcium 8.8 mg/dL (8.5-10.1); Carbon Dioxide 27.9 mmol/L (21.0-32.0); Chloride 105 mmol/L (98-107); Estimated GFR (African America 58 (>=60 mL/min/1.73m^2); Estimated GFR (Non-African Ame 48 (>=60 mL/min/1.73m^2); Glucose 103 mg/dL (74-106); Potassium 3.8 mmol/L (3.5-5.1); Sodium 141 mmol/L (136-145)
== END 2024-09-06 14:06 | disposition home or self-care (01) ==
PROVIDERS: Physician Assistant; Emergency Provider Emergency Medicine; PCP Family Medicine
DX: L03.116 Cellulitis of left lower limb (principal); E66.01 Morbid (severe) obesity due to excess calories; Z68.43 Body mass index [BMI] 50.0-59.9, adult
CPT/HCPCS: 36415; 80048; 85025; 93971; 99284

== ENCOUNTER 2025-04-29 16:57 | Emergency (ER) | payer OTHER, SELFPAY ==
[2025-04-29 17:12] VITALS: BP 152/97; PULSE 82; TEMP 36.8; O2SAT 97; BMI 60.6
--- OUTSIDE RECORDS SUMMARY | 2025-04-29 17:50 | XMS_ITS | CCD ---
Author Organization [facility] Care Team Providers Care Pompom Maker Name Role Phone Shana Mercedes Unavailable Shana Mercedes Admitting Unavailable Shana Mercedes Attending Unavailable Mago, Shana Primary Care Unavailable Mago, Shaan Admitting Unavailable Mago, Shana Attending Unavailable MAGO, [...] Unavailable SINGH, DR SHANA Anders Consulting Unavailable GIRDAMARIS, DR SALDANA Primary Care Unavailable ANNELIESE ., HIRA Admitting Unavailable ANNELIESE ., HIRA Attending Unavailable ANNELIESE ., HIRA Consulting Unavailable SHANA MERCEDES Primary Care Unavailable VALENTIN VIRGEN Attending Unavailable VALENTIN VIRGEN Referring Unavailable SHANA MERCEDES Primary Care Unavailable Shana Mercedes DO Primary Care Provider Shana Mercedes DO Attending Provider Allergies Allergy Classification Reported Allergen(s) Allergy Type Date of Onset Reaction(s) Facility (20 sources) Acetaminophen Drug Allergy 01-04-20 24 throat swelling [facility] (17 sources) cat dander allergenic extract / cat skin extract Drug Allergy Unknown [employer] Other (17 sources) dog skin extract Drug Allergy Unknown [employer] Other (20 sources) Doxycycline; Translations: [DOXYCYCLINE] Drug Allergy 12-08-19 17 vomiting [facility] (17 sources) horse skin extract Drug Allergy Unknown [facility] [employer] Other (17 sources) Mushroom (edible) Propensity to adverse reactions GI upset [facility] [employer] Other (17 sources) Penicillin Drug Allergy vomiting [facility] [employer] Other (12 sources) Budesonide / formoterol Drug Allergy pt does not feel this worked well for her [facility] [employer] Other (9 sources) Penicillins; Translations: [PENICILLINS] Drug allergy (disorder) 03-03-20 13 vomiting [facility] (1 source) Midol Drug allergy (disorder) 03-03-20 13 [facility] (1 source) Acetaminophen / pamabrom; Translations: [ACETAMINOPHEN-PAMA BROM] Drug Allergy 12-08-19 17 [facility] (8 sources) Mushroom (edible); Translations: [MUSHROOM] Propensity to adverse reactions to food (disorder) 01-14-20 17 GI upset [facility] (1 source) CAT/FELINE PRODUCTS; Translations: [CAT/FELINE PRODUCTS] Propensity to adverse reactions to drug (disorder) 01-14-20 17 [facility] (1 source) DOG HAIR STANDARDIZED ALLERGENIC EXTRACT; Translations: [DOG HAIR STANDARDIZED ALLERGENIC EXTRACT] Propensity to adverse reactions to drug (disorder) 01-14-20 17 [facility] (7 sources) Budesonide Drug Allergy 01-04-20 24 pt does not feel this worked well for her [facility] (7 sources) formoterol Drug Allergy 01-04-20 24 pt does not feel this worked well for her [facility] (7 sources) pamabrom Drug Allergy 01-04-20 24 throat swelling [facility] (7 sources) cat dander Allergy to substance 01-04-20 24 Unknown Reaction [facility] (7 sources) dog dander Allergy to substance 01-04-20 24 Unknown Reaction [facility] (7 sources) horse dander Allergy to substance 01-04-20 24 Unknown Reaction [facility] (4 sources) Sulfamethoxazole Drug Allergy 10-01-19 25 Itching [facility] (4 sources) Trimethoprim Drug Allergy 10-01-19 25 Itching [facility] Medications Current Medications Medication Drug Class(es) Dates Sig (Normalized) Sig (Original) albuterol 0.83 mg/ml inhalation solution (20 sources) beta2-Adrenergic Agonist Start: 05-04-2024 Albuterol Sulfate 2.5 mg /3 mL (0.083 %) solution for nebulization Active 0 .ROUTE .COMPLEX 375 May 04, 2024 9:05am USE 1 VIAL IN NEBULIZER EVERY 4 HOURS NEEDED Complies with drug therapy Start: 02-13-2024 take 1 puff(s) by in halation every four hours as needed Albuterol Sulfate 90 mcg/actuation HFA aerosol inhaler Active 2 PUFF INHALATION Every 4 hours as needed February 13, 2024 4:45pm Complies with drug therapy Start: 02-13-2024 End: 05-04-2024 Albuterol Sulfate 2.5 mg /3 mL (0.083 %) solution for nebulization Discontinued 2.5 MG INHALATION .COMPLEX as needed February 13, 2024 4:44pm May 04, 2024 9:05am 2.5 mg inhaled PRN; Start: 01-04-2024 End: 02-13-2024 take 2 puff(s) by mouth every four hours as needed Albuterol Sulfate 90 mcg/actuation HFA aerosol inhaler Discontinued 2 PUFF INHALATION Every 4 hours January 04, 2024 12:00am February 13, 2024 4:48pm [employer]: INHALE 2 PUFFS BY MOUTH EVERY 4 HOURS NEEDED; Note: Source Status: Continue; Provider: Mago Saldana ( ) Start: 11-22-2023 End: 02-13-2024 Albuterol Sulfate 2.5 mg /3 mL (0.083 %) solution for nebulization Discontinued 0 .ROUTE .COMPLEX 375 November 22, 2023 2:34pm February 13, 2024 4:44pm USE 1 VIAL IN NEBULIZER EVERY 4 HOURS NEEDED Start: 11-22-2023 End: 11-22-2023 Albuterol Sulfate 2.5 mg /3 mL (0.083 %) solution for nebulization Discontinued 0 CNTNEBULIZ .Q4 hrs prn November 22, 2023 12:00am November 22, 2023 2:35pm use 1 vial in nebulizer via continuous nebulization Q4 HRS PRN; Free[employer]: USE 1 VIAL IN NEBULIZER EVERY 4 HOURS NEEDED; Note: Source Status: Start; Refills: 5; Qty: 375 Milliliter; Provider: Mago Saldana ( ) Start: 11-22-2023 End: 11-22-2023 Albuterol Sulfate 2.5 mg /3 mL (0.083 %) solution for nebulization Discontinued 0 CNTNEBULIZ .Q4 hrs prn November 22, 2023 12:00am November 22, 2023 2:35pm use 1 vial in nebulizer via continuous nebulization Q4 HRS PRN; FreeText[employer]: USE 1 VIAL IN NEBULIZER EVERY 4 HOURS NEEDED; Note: Source Status: Start; Refills: 5; Qty: 375 Milliliter; Provider: Mago Saldana ( ) Albuterol Sulfat e (2.5 MG/3ML) 0.083% USE 1 VIAL IN NEBULIZER EVERY 4 HOURS NEEDED for 21 Active take 2 puff(s) by mo [facility] every four hours as needed Albuterol Sulfate HFA 108 (90 Base) MCG/ACT INHALE 2 PUFFS BY MOUTH EVERY 4 HOURS NEEDED Active Albuterol Sulfat e (2.5 MG/3ML) 0.083% USE 1 VIAL IN NEBULIZER EVERY 4 HOURS NEEDED for 21 Active take 2 puff(s) by mo [facility] every four hours as needed Albuterol Sulfate HFA 108 (90 Base) MCG/ACT INHALE 2 PUFFS BY MOUTH EVERY 4 HOURS NEEDED Active take 2 puff(s) by mo [facility] every four hours as needed Albuterol Sulfate [...] prn Not-Taking take 2 puff(s) by mo [facility] every four hours as needed Ventolin HFA [...] sources) Calcium & Magnes ium Carbonates Active Calcium and magnesium (1 source) Start: celecoxib 200 mg oral capsule (20 sources) Nonsteroidal Anti-inflammatory Drug Start: End: take 1 capsule by mouth once daily at mealtime Celecoxib 200 mg capsule Active 0 .ROUTE .COMPLEX March 11, 2025 8:41am TAKE 1 CAPSULE BY MOUTH ONCE DAILY WITH FOOD Complies with drug therapy Start: 10-01-2024 End: 12-11-2024 take 1 capsule by mouth once daily at mealtime Celecoxib 200 mg capsule Discontinued 200 MG PO Daily October 01, 2024 10:15am December 11, 2024 3:04pm with food Start: 03-30-2024 End: 10-01-2024 take 1 capsule by mouth once daily at mealtime Celecoxib 200 mg capsule Discontinued 0 .ROUTE .COMPLEX March 30, 2024 8:19am October 01, 2024 10:16am TAKE 1 CAPSULE BY MOUTH ONCE DAILY WITH FOOD Start: 01-04-2024 End: 03-30-2024 take 1 capsule by mouth once daily Celecoxib 200 mg capsule Discontinued 200 MG PO Daily February 13, 2024 4:45pm March 30, 2024 8:19am take 1 capsule by mo [facility] once daily at mealtime Celecoxib 200 MG TAKE 1 CAPSULE BY MOUTH ONCE DAILY WITH FOOD for 30 days Active furosemide 20 mg oral tablet (20 sources) Loop Diuretic Start: 10-01-2024 End: 01-07-2025 take 1 tablet by mouth twice daily Furosemide 20 mg tablet Active 20 MG PO Twice daily 60 January 07, 2025 9:41am Complies with drug therapy Start: 10-01-2024 End: 10-01-2024 take 1 tablet by mouth once daily Furosemide 20 mg tablet Discontinued 20 MG PO Daily October 01, 2024 10:16am October 01, 2024 10:45am Start: 02-21-2024 End: 10-01-2024 take 1 tablet by mouth once daily Furosemide 20 mg tablet Discontinued 0 .ROUTE .COMPLEX July 17, 2024 5:08pm October 01, 2024 10:19am Take 1 tablet by mouth once daily Start: 01-04-2024 End: 02-21-2024 take 1 tablet by mouth once daily Furosemide 20 mg tablet Discontinued 20 MG PO Daily January 04, 2024 12:00am February 21, 2024 1:06pm FreeTextSig: Take 1 tablet by mouth once daily for 30 days; Note: Source Status: Start; Refills: 5; Qty: 30 Tablet; Provider: Mago Saldana ( ) Start: 07-29-2021 take 1 tablet by pastor th every twenty-four hours Lasix 20 MG 1 tablet Orally Once a day prn Jul, Active levothyroxine sodium 0.112 mg oral tablet (20 sources) l-Thyroxine Start: 04-16-2025 Levothyroxine 112 mcg tablet Active 112 MCG PO .QOD 45 April 16, 2025 8:40am take first thing in the morning on an empty stomach, do not eat or drink for 30-45 min after taking / alternating with 125 MCG Complies with drug therapy Start: 04-16-2025 Levothyroxine 125 mcg tablet Active 125 MCG PO .qod 45 April 16, 2025 12:00am take first thing in the morning on an empty stomach, do not eat or drink for 30-45 min after taking, alternating with 112 MCG Complies with drug therapy Start: 10-03-2024 End: 04-16-2025 take 1 tablet by mouth once daily in the morning Levothyroxine 112 mcg tablet Discontinued 112 MCG PO Daily March 21, 2025 9:13am April 16, 2025 8:43am take first thing in the morning on an empty stomach, do not eat or drink for 30-45 min after taking Start: 10-01-2024 End: 10-03-2024 take 1 capsule by mouth once daily in the morning Levothyroxine 112 mcg capsule Discontinued 112 MCG PO Daily October 01, 2024 1:00am October 03, 2024 9:05am take first thing in the morning on an empty stomach, do not eat or drink anything for 30-45 min after taking Start: 01-04-2024 End: 10-01-2024 take 1 tablet by mouth in the morning Levothyroxine 100 mcg tablet Discontinued 100 MCG PO .COMPLEX October 01, 2024 10:17am October 01, 2024 10:39am 100 mcg orally TAKE 1 TABLET BY MOUTH IN THE MORNING ON AN EMPTY STOMACH; Levothyroxine So dium 100 MCG TAKE 1 TABLET BY MOUTH IN THE MORNING ON AN EMPTY STOMACH FOR 90 DAYS for 90 days Active take 1 tablet by pastor th in the morning Euthyrox 100 MCG TAKE 1 TABLET BY MOUTH IN THE MORNING ON AN EMPTY STOMACH for 90 days Active take 1 tablet by pastor th in the morning Euthyrox 112 MCG TAKE 1 TABLET BY [...] capsule (20 sources) Proton Pump Inhibitor Start: 02-20-2025 take 1 capsule by mouth in the morning Omeprazole 20 mg capsule,delayed release(DR/EC) Active 0 .ROUTE .COMPLEX February 20, 2025 8:24am TAKE 1 CAPSULE BY MOUTH IN THE MORNING 15 MINUTES PRIOR TO THE FIRST MEAL OF THE DAY Complies with drug therapy Start: 10-01-2024 End: 02-20-2025 take 1 tablet by mouth in the morning Omeprazole 20 mg capsule,delayed release(DR/EC) Discontinued 20 MG PO .COMPLEX October 01, 2024 10:18am February 20, 2025 8:24am 20 mg orally TAKE 1 TABLET BY MOUTH IN THE MORNING ON AN EMPTY STOMACH; Start: 02-21-2024 End: 10-01-2024 take 1 capsule by mouth once daily at mealtime Omeprazole 20 mg capsule,delayed release(DR/EC) Discontinued 0 .ROUTE .COMPLEX February 21, 2024 1:04pm October 01, 2024 10:19am TAKE 1 CAPSULE BY MOUTH ONCE DAILY 15 MINUTES PRIOR TO THE FIRST MEAL OF THE DAY Start: 01-04-2024 End: 02-21-2024 take 1 capsule by mouth once daily at mealtime Omeprazole 20 mg capsule,delayed release(DR/EC) Discontinued 20 MG PO .COMPLEX February 13, 2024 4:46pm February 21, 2024 1:06pm 20 mg orally TAKE 1 CAPSULE BY MOUTH ONCE DAILY 15 MINUTES PRIOR TO THE FIRST MEAL OF THE DAY Omeprazole 20 MG TAKE 1 CAPSULE BY MOUTH ONCE DAILY 15 MINUTES PRIOR TO THE FIRST MEAL OF THE DAY. for 30 Active microencapsulated potassium chloride 10 meq extended release oral tablet (20 sources) Start: 01-07-2025 take 2 tablets by mouth once daily at mealtime Potassium Chloride 10 mEq tablet,ER particles/crystals Active 0 .ROUTE .COMPLEX January 07, 2025 9:41am TAKE 2 TABLETS BY MOUTH WITH FOOD ONCE DAILY Complies with drug therapy Start: 07-17-2024 End: 01-07-2025 take 2 tablets by mouth once daily Potassium Chloride 10 mEq tablet,ER particles/crystals Discontinued 20 MEQ PO Daily December 17, 2024 10:52am January 07, 2025 9:41am Start: 02-21-2024 End: 07-17-2024 take 1 tablet by mouth once daily at mealtime Potassium Chloride 10 mEq tablet,ER particles/crystals Discontinued 0 .ROUTE .COMPLEX July 02, 2024 10:15am July 17, 2024 5:09pm Take 1 tablet by mouth once daily with food Start: 02-21-2024 End: 06-18-2024 take 1 tablet by mouth once daily at mealtime Potassium Chloride Discontinued 0 .ROUTE .COMPLEX February 21, 2024 12:06pm June 18, 2024 10:48am Take 1 tablet by mouth once daily with food Start: 01-04-2024 End: 02-21-2024 take 1 tablet by mouth once daily at mealtime Potassium Chloride 10 mEq tablet,ER particles/crystals Discontinued 10 MEQ PO Daily February 13, 2024 4:49pm February 21, 2024 1:06pm TAKE 1 TABLET BY MOUTH ONCE DAILY [...] (20 sources) Central alpha-2 Adrenergic Agonist Start: 10-15-2024 End: 11-26-2024 Tizanidine 4 mg tablet Active 0 .ROUTE .COMPLEX November 26, 2024 3:03pm TAKE 1 TABLET BY MOUTH EVERY 8 TO 12 HOURS NEEDED FOR 10 DAYS Complies with drug therapy Start: 10-01-2024 End: 10-15-2024 Tizanidine 4 mg tablet Disco ntinued 4 MG PO .q8-12 hr as needed October 01, 2024 10:18am October 15, 2024 3:03pm Start: 05-01-2024 End: 10-01-2024 Tizanidine 4 mg tablet Disco ntinued 0 .ROUTE .COMPLEX May 01, 2024 11:34am October 01, 2024 10:19am TAKE 1 TABLET BY MOUTH EVERY 8 TO 12 HOURS NEEDED FOR 10 DAYS Start: 05-01-2024 Tizanidine Act mat 0 .ROUTE .COMPLEX May 01, 2024 10:34am TAKE 1 TABLET BY MOUTH EVERY 8 TO 12 HOURS NEEDED FOR 10 DAYS Start: 01-04-2024 End: 05-01-2024 Tizanidine 4 mg tablet Disco ntinued 4 MG PO .Q 8-12h as needed February 13, 2024 4:37pm May 01, 2024 11:34am TAKE 1 TABLET BY MOUTH EVERY 8 TO 12 HOURS NEEDED FOR 10 DAYS tiZANidine HCl 4 MG TAKE 1 TABLET BY MOUTH EVERY 8 TO 12 HOURS NEEDED FOR 10 DAYS for 10 Active Completed/Discontinued Medications Medication Drug Class(es) Dates Sig (Normalized) Sig (Original) cephalexin 500 mg oral capsule (16 sources) Cephalosporin Antibacterial Start: 02-08-2025 End: 02-11-2025 take 1 capsule by mouth twice daily Cephalexin 500 mg capsule Discontinued 500 MG PO Twice daily February 08, 2025 12:00am February 11, 2025 9:13am Start: 10-01-2024 End: 12-17-2024 take 2 capsules by mouth in the morning, then take 2 capsules by mouth in the evening Cephalexin 500 mg capsule Discontinued 0 PO .COMPLEX 40 October 30, 2024 4:24pm December 17, 2024 10:45am take 2 (500 MG) capsules in the morning orally and take 2 (500 MG) capsules in the evening; Start: 07-17-2024 End: 10-01-2024 take 1 capsule by mouth three times daily Cephalexin 500 mg capsule Discontinued 500 MG PO Three times daily 01 04July 17, 2024 1:00am October 01, 2024 10:07am Start: 08-10-2022 take 2 capsules by m outh every twelve hours Cephalexin 500 MG 2 capsules Orally bid Jul, Active 24 hr dilTIAZem hydrochloride 120 mg extended [...] morning Orally Once a day Jul, Not-Taking levoFLOXacin 500 mg oral tablet (2 sources) Quinolone Antimicrobial Start: 02-11-2025 End: 04-16-2025 take 1 tablet by mouth once daily Levofloxacin 500 mg tablet Discontinued 500 MG PO Daily 01 14February 11, 2025 9:40am April 16, 2025 8:11am oxyCODONE hydrochloride 5 mg oral tablet (17 sources) Opioid Agonist Start: 04-23-2024 End: 10-01-2024 take 1 tablet by mouth once daily at bedtime Oxycodone 5 mg tablet Discontinued 5 MG PO Daily at bedtime 14 July 17, 2024 October 01, 2024 10:08am Start: 01-04-2024 End: 02-13-2024 take 1 tablet by mouth once daily at bedtime Oxycodone 5 mg tablet Discontinued 5 MG PO Daily at bedtime 14 January 04, 2024 February 13, 2024 4:44pm Potassium Chloride 10 mEq tablet,ER particles/crystals (3 sources) Start: 02-21-2024 End: 06-18-2024 take 1 tablet by mouth once daily at mealtime Potassium Chloride 10 mEq tablet,ER particles/crystals Discontinued 0 .ROUTE .COMPLEX February 21, 2024 1:06pm June 18, 2024 11:48am Take 1 tablet by mouth once daily with food Start: 02-21-2024 End: 06-18-2024 take 1 tablet by mouth once daily at mealtime Potassium Chloride 10 mEq tablet,ER particles/crystals Discontinued 0 .ROUTE .COMPLEX February 21, 2024 12:06pm June 18, 2024 10:48am Take 1 tablet by mouth once daily with food pravastatin sodium 10 mg oral tablet (17 sources) HMG-CoA Reductase Inhibitor Start: 07-20-2016 take 1 tablet by mouth once daily at bedtime Pravastatin Sodium 10 MG 1 tablet Orally qd hs for 30 day(s) Jul, Not-Taking/PRN predniSONE 20 mg oral tablet (6 sources) Start: 09-18-2024 End: 10-01-2024 take 1 tablet by mouth once daily at mealtime Prednisone 20 mg tablet Discontinued 0 PO Daily 18 September 18, 2024 1:00am October 01, 2024 10:08am 20 MG 3 a day x3 days, then take 2 a day x3 days and then 1 a day x3 days with food or milk. orally daily; Start: 09-07-2022 predniSONE 20 MG take 3 tablets Orally x3 days, then 2 tabs x3 days then 1 tab a day x3 days then take 1/2 tablet x4 days with food or milk for 13 days Aug, Not-Taking Problems Active Problems Problem Classification Problem Date Documented Da te Episodic/Chronic Abdominal pain (2 sources) Unspecified abdominal pain; Translations: [Flank pain] Episodic Adjustment disorders (2 sources) Stress; Translations: [Reaction to severe stress, unspecified] 04-16-2025 Chronic Allergic reactions (3 sources) Allergic condition; Translations: [Allergy, unspecified, initial encounter] 12-17-2024 Episodic Asthma (20 sources) Asthma; Translations: [Unspecified asthma, uncomplicated] Onset: 1 Resolved: 2 Chronic Attention-deficit, conduct, and disruptive behavior disorders (17 sources) Attention deficit hyperactivity disorder; Translations: [Attention-deficit hyperactivity disorder, unspecified type] Chronic Diabetes mellitus without complication (2 sources) Hyperglycemia; Translations: [Hyperglycemia, unspecified] 04-16-2025 Episodic Disorders of lipid metabolism (20 sources) Hyperlipidemia; Translations: [Hyperlipidemia, unspecified] Onset: 1 Resolved: 2 Chronic E Codes: Fall (9 sources) Fall; Translations: [Unspecified fall, initial encounter] [...] Onset: 1 Resolved: 2 Episodic Intracranial injury (9 sources) Concussion injury of body structure; Translations: [Concussion] 01-04-2024 Episodic Mycoses (3 sources) Onychomycosis; Translations: [Tinea unguium] 12-31-2024 Episodic Open wounds of head; neck; and trunk (7 sources) Laceration - injury; Translations: [Laceration] 07-17-2024 Episodic Comment on above: lower left leg Other connective tissue disease (1 source) Pain in left arm Episodic Other connective tissue disease (7 sources) Pain in left lower limb; Translations: [Pain in left leg] 01-04-2024 Episodic Other connective tissue disease (2 sources) Pain in left leg; Translations: [Pain in limb] 01-04-2024 Episodic Other connective tissue disease (6 sources) Synovial cyst of knee; Translations: [Synovial cyst of popliteal space [Looney], unspecified knee] 02-13-2024 Episodic Comment on above: left knee Other connective tissue disease (1 source) Synovial cyst of popliteal space [Looney], unspecified knee; Translations: [Synovial cyst of popliteal space] 02-13-2024 Episodic Other connective tissue disease (2 sources) Swelling of left lower limb; Translations: [Other specified soft tissue disorders] 12-17-2024 Episodic Other connective tissue disease (2 sources) Other specified soft tissue disorders; Translations: [Swelling of limb] 12-17-2024 Episodic Other gastrointestinal disorders (17 sources) Incontinence [...] disturbance; Translations: [Paresthesia of skin] Episodic Other nervous system disorders (3 sources) Paresthesia of hand ; Translations: [Anesthesia of skin] 12-17-2024 Episodic Other non-traumatic joint disorders (2 sources) Pain in left shoulder Episodic Other non-traumatic joint disorders (1 source) Pain in unspecified hip Episodic Other non-traumatic joint disorders (11 sources) Knee pain; Translations: [Pain in unspecified knee] Onset: 4 01-04-2024 Episodic Comment on above: left knee Other non-traumatic joint disorders (7 sources) Shoulder pain; Translations: [Pain in unspecified [...] nutritional; endocrine; and metabolic disorders (2 sources) Obese class III; Translations: [Class 3 obesity] 04-16-2025 Chronic Other nutritional; endocrine; and metabolic disorders (2 sources) Body mass index 40+ - severely obese; Translations: [Body mass index (BMI) 50.0-59.9, adult] 04-16-2025 Chronic Other nutritional; endocrine; and metabolic disorders (4 sources) Abnormal weight gain; Translations: [Abnormal weight gain] Onset: 2 Resolved: 2 Episodic Other nutritional; endocrine; and metabolic disorders (4 sources) Weight increased; Translations: [Abnormal weight gain] 10-01-2024 Episodic Other screening for suspected conditions (not mental disorders or infectious disease) (7 sources) Encounter for screening mammogram for malignant neoplasm of breast; Translations: [Patient encounter status] Onset: 1 Resolved: 1 Episodic Other upper respiratory disease (20 sources) Rhinitis; Translations: [Chronic rhinitis] 12-17-2024 Chronic Other upper respiratory infections (2 sources) Acute sinusitis, unspecified Onset: 2 Resolved: 2 Episodic Residual codes; unclassified (9 sources) Edema, unspecified; Translations: [Edema] Onset: 1 Resolved: 2 Episodic Residual codes; unclassified (8 sources) Edema; Translations: [Edema, unspecified] 01-04-2024 Episodic Skin and subcutaneous tissue infections (9 sources) Cellulitis; Translations: [Cellulitis, unspecified] 07-17-2024 Episodic Superficial injury; contusion (1 source) Contusion of left knee, initial encounter; Translations: [Contusion of left knee, initial encounter] Onset: 4 Episodic Thyroid disorders (20 sources) Hypothyroidism; Translations: [Hypothyroidism, unspecified] Onset: 1 Resolved: 2 Chronic Thyroid disorders (3 sources) Disorder of thyroid gland; Translations: [Disorder of thyroid, unspecified] 12-17-2024 Episodic Unclassified (1 source) N30.90 - Cystitis, unspecified [...] 07-29-2021 Episodic Other aftercare (2 sources) Other half-way (current) drug therapy Onset: 07-29-2021 Resolved: 01-28-2022 [...] Test Name Value Interpretation Reference Range Facility Basophils Auto (Bld) [#/Vol] on 09-06-2024 Basophils (Bld) [#/Vol] Automated basophil count 0.0-0.1 [facility] Basophils/100 WBC Auto (Bld) on 09-06-2024 Basophils/100 WBC (Bld) Automated basophil % 0.2-2.0 [facility] Eosinophils/100 WBC Auto (Bl d)on 09-06-2024 Eosinophils/100 WBC (Bld) Automated eosinophil % 0.9-7.0 [facility] Erythrocyte distribution wid th Auto (RBC) [Ratio]on 09-06-2024 Erythrocyte distribution width (RBC) [Ratio] Erythrocyte distribution width [Ratio] by Automated count 11.0-15.0 [facility] Estimated glomerular filtrat ion rate (GFR) non- Americanon 09-06-2024 GFR/1.73 sq M.predicted among non-blacks MDRD (S/P/Bld) [Vol rate/Area] Estimated glomerular filtration rate (GFR) non- Low >=60 mL/min/1.73m 2 [facility] Hematocrit Auto (Bld) [Volum e fraction]on 09-06-2024 Hematocrit (Bld) [Volume fraction] Hematocrit [Volume Fraction] of Blood by Automated count 36.0-48.0 [facility] Hemoglobin [Mass/volume] in Bloodon 09-06-2024 Hemoglobin (Bld) [Mass/Vol] Hemoglobin [Mass/volume] in Blood 12.0-16.0 [facility] Laboratory - Chemistry and C hemistry - challengeon 09-06-2024 Calcium [Mass/Vol] 8.8 mg/dL 8.5-10.1 [facility] Chloride [Moles/Vol] 105 mmol/L 98-107 [facility] CO2 [Moles/Vol] 27.9 mmol/L 21.0-32.0 [facility] Creatinine [Mass/Vol] 1.14 mg/dL High 0.55-1.02 [facility] GFR/1.73 sq M.predicted MDRD (S/P/Bld) [Vol rate/Area] 58 mL/min/{1.73_m2} Low >=60 mL/min/1.73m 2 [facility] Glucose [Mass/Vol] 103 mg/dL 74-106 [facility] Potassium [Moles/Vol] 3.8 mmol/L 3.5-5.1 [facility] Sodium [Moles/Vol] 141 mmol/L 136-145 [facility] Urea nitrogen [Mass/Vol] 15.0 mg/dL 7.0-18.0 [facility] Urea nitrogen/Creatinine [Mass ratio] 13.2 mg/mg [facility] Laboratory - Hematology and Cell countson 09-06-2024 Immature granulocytes/100 WBC (Bld) 0.2 % 0.0-0.5 [facility] Leukocytes [#/volume] correc nataliia for nucleated erythrocytes in Blood by Automated counon 09-06-2024 WBC corrected for nucl RBC Auto (Bld) [#/Vol] Leukocytes [#/volume] corrected for nucleated erythrocytes in Blood by Automated coun 4.0-11.0 [facility] Lymphocytes Auto (Bld) [#/Vo l]on 09-06-2024 Lymphocytes (Bld) [#/Vol] Lymphocytes [#/volume] in Blood by Automated count 1.2-3.8 [facility] Lymphocytes/100 WBC Auto (Bl d)on 09-06-2024 Lymphocytes/100 WBC (Bld) Lymphocytes/100 leukocytes in Blood by Automated count 20.5-60.0 [facility] MCH Auto (RBC) [Entitic mass ]on 09-06-2024 MCH (RBC) [Entitic mass] MCH [Entitic mass] by Automated count 26.7-34.0 [facility] MCHC Auto (RBC) [Mass/Vol]on 09-06-2024 MCHC (RBC) [Mass/Vol] MCHC [Mass/volume] by Automated count 29.9-35.2 [facility] MCV Auto (RBC) [Entitic vol] on 09-06-2024 MCV (RBC) [Entitic vol] MCV [Entitic volume] by Automated count 81.0-99.0 [facility] Monocytes Auto (Bld) [#/Vol] on 09-06-2024 Monocytes (Bld) [#/Vol] Automated blood monocyte count 0.3-0.8 [facility] Monocytes/100 WBC Auto (Bld) on 09-06-2024 Monocytes/100 WBC (Bld) Automated monocyte % 1.7-12.0 [facility] Neutrophils Auto (Bld) [#/Vo l]on 09-06-2024 Neutrophils (Bld) [#/Vol] Neutrophils [#/volume] in Blood by Automated count 1.4-6.5 [facility] Neutrophils/100 WBC Auto (Bl d)on 09-06-2024 Neutrophils/100 WBC (Bld) Automated neutrophil % 43.0-75.0 [facility] No Panel Informationon 09-06 Eosinophils # (Auto) 0.2 10 3/uL 0.0-0.7 [facility] Immature Granulocyte # (Auto) 0.02 10 3/uL 0.00-0.03 [facility] Platelet mean volume Auto (B ld) [Entitic vol]on 09-06-2024 Platelet mean volume (Bld) [Entitic vol] Platelet mean volume [Entitic volume] in Blood by Automated count Low 9.5-13.5 [facility] Platelets Auto (Bld) [#/Vol] on 09-06-2024 Platelets (Bld) [#/Vol] Platelets [#/volume] in Blood by Automated count 150-450 [facility] RBC Auto (Bld) [#/Vol]on RBC (Bld) [#/Vol] Erythrocytes [#/volume] in Blood by Automated count 4.20-5.40 [facility] Serum or plasma anion gap de terminationon 09-06-2024 Anion gap [Moles/Vol] Serum or plasma anion gap determination [facility] XR KNEE LT MIN 4 VWSon 12-28 [...] Harris Hogan MD on 12/29/2023 1:03 PM Normal [facility] XR SHOULDER LT 2V or >on XR [...] by: CELINA HENSON Date: 2023-02-09 15:12 Normal [facility] Automated erythrocytes count in urine sediment (number/area)Ordered By: Shana Mercedes on 08-10-2022 RBC Auto (Urine sed) [#/Area] 3-4 [HPF] 0-4 [facility] Automated leukocytes count i n urine sediment (number/area)Ordered By: Shana Mercedes on 08-10-2022 WBC Auto (Urine sed) [#/Area] 20-49 [HPF] 0-4 [facility] Bilirubin Test strip Ql (U)O rdered By: Shana Mercedes on 08-10-2022 Bilirubin Ql (U) Negative Negative [facility] Color Auto (U)Ordered By: Troy Mercedes on 08-10-2022 Color (U) Yellow Yellow [facility] Dipstick & Microscopicon Dipstick & Microscopic [employer] Other Dipstick and Microscopicon 1 10-10-2021 Appearance (U) Clear Normal Clear [facility] Comment on above: Order Comment: Name Collection Type:: Collection Method Unknown Performed By: #### A STEVE VALENCIA #### [address] Bacteria,Urine None Seen Normal None Seen [facility] Comment on above: Order Comment: Name Collection Type:: Collection Method Unknown Performed By: #### A DDONUAPLUS, CUU #### [place] [address] [place] Bilirubin,Urine Negative Normal Negative [facility] Comment on above: Order Comment: Name Collection Type:: Collection Method Unknown Performed By: #### A DDONUAPLUS, CUU #### [address] Color (U) Yellow Normal Yellow [facility] Comment on above: Order Comment: Name Collection Type:: Collection Method Unknown Performed By: #### A DDONUAPLUS, CUU #### [address] Glucose Ql (U) Normal Normal Normal [facility] Comment on above: Order Comment: Name Collection Type:: Collection Method Unknown Performed By: #### A DDONUAPLUS, CUU #### [address] Hyaline Casts,Urine None Seen Normal 0-8 [facility] Comment on above: Order Comment: Name Collection Type:: Collection Method Unknown Result Comment: PERF ORMED BY: [place] [address] PATHOLOGIST RESIDENTIAL DRIVER SHO RODRIGUEZ M.D. Performed By: #### A DDONUAPLUS, CUU #### [place] [address] [place] Ketones Ql (U) Negative Normal Negative [facility] Comment on above: Order Comment: Name Collection Type:: Collection Method Unknown Performed By: #### A DDONUAPLUS, CUU #### [place] [address] [place] Leukocyte esterase Test strip Ql (U) 3+ High Negative [facility] Comment on above: Order Comment: Name Collection Type:: Collection Method Unknown Performed By: #### A DDONUAPLUS, CUU #### [place] [address] [place] Nitrite,Urine Negative Normal Negative [facility] Comment on above: Order Comment: Name Collection Type:: Collection Method Unknown Performed By: #### A DDONUAPLUS, CUU #### [address] Occult Blood,Urine Negative Normal Negative [facility] Comment on above: Order Comment: Name Collection Type:: Collection Method Unknown Result Comment: PERF ORMED BY: [place] [address] PATHOLOGIST RESIDENTIAL DRIVER SHO RODRIGUEZ M.D. Performed By: #### A DDONUAPLUS, CUU #### [address] pH (U) 6.0 [pH] Normal 5.0-9.0 [facility] Comment on above: Order Comment: Name Collection Type:: Collection Method Unknown Performed By: #### A DDONUAPLUS, CUU #### [address] Protein,Urine Negative Normal Negative [facility] Comment on above: Order Comment: Name Collection Type:: Collection Method Unknown Performed By: #### A DDONUAPLUS, CUU #### [address] RBC,Urine 3-4 Normal 0-4 [facility] Comment on above: Order Comment: Name Collection Type:: Collection Method Unknown Performed By: #### A DDONUAPLUS, CUU #### [address] Specificy Purcell,Urine 1.019 Normal 1.001-1.030 [facility] Comment on above: Order Comment: Name Collection Type:: Collection Method Unknown Performed By: #### A DDONUAPLUS, CUU #### [address] Squamous Epithelial Cell,Urine 0-1 Normal 0-2 [facility] Comment on above: Order Comment: Name Collection Type:: Collection Method Unknown Performed By: #### A DDONUAPLUS, CUU #### [address] [place] [address] [place] Urobilinogen,Urine Normal Normal Normal [facility] Comment on above: Order Comment: Name Collection Type:: Collection Method Unknown Performed By: #### A DDONUAPLUS, CUU #### [facility] [address] WBC,Urine 20-49 High 0-4 [facility] Comment on above: Order Comment: Name Collection Type:: Collection Method Unknown Performed By: #### A DDONUAPLUS, CUU #### [facility] [address] Ketones Auto test strip (U) [Mass/Vol]Ordered By: Shana Mercedes on 08-10-2022 Ketones (U) [Mass/Vol] Negative Negative [facility] Laboratory - UrinalysisOrder ed By: Shana Mercedes on 08-10-2022 Hyaline casts LM Ql (Urine sed) None seen [LPF] 0-8 [facility] Nitrite Test strip Ql (U)Ord ered By: Shana Mercedes on 08-10-2022 Nitrite Ql (U) Negative Negative [facility] Protein Auto test strip (U) [Mass/Vol]Ordered By: Shana Mercedes on 08-10-2022 Protein (U) [Mass/Vol] Negative Negative [facility] Specific gravity Auto test s trip (U) [Rel density]Ordered By: Shana Mercedes on 08-10-2022 Specific gravity (U) [Rel density] 1.019 1.001-1.030 [facility] Squamous epithelial cells de tection in urine sediment by light microscopyOrdered By: Shana Mercedes on 08-10-2022 Epithelial cells.squamous LM Ql (Urine sed) 0-1 [HPF] 0-2 [facility] Urine 10 SGon 08-10-2022 Albumin DL <= 20 mg/L (U) [Mass/Vol] Negative [employer] Other Albumin DL <= 20 mg/L (U) [Mass/Vol] large [employer] Other pH (U) 5.0 [pH] [employer] Other Urine 10 SG Negative [employer] Other Urine 10 SG 1.015 [employer] Other Urine 10 SG moderate [employer] Other Urine 10 SG 0.2 [employer] Other Urine Cultureon 08-10-2022 Bacteria identified Cx Nom (U) 30,000 colonies/ml mixed bacterial skin contaminants 2 Days PERFORMED BY: [place] [address] PATHOLOGIST RESIDENTIAL DRIVER SHO RODRIGUEZ M.D. Normal [facility] Comment on above: Performed By: #### A DDONUAPLUS, CUU #### [address] Bacteria identified Cx Nom (U) [employer] Other Urine bacteria detection by automated methodOrdered By: Shana Mercedes on 08-10-2022 Bacteria Auto Ql (U) None seen None Seen [facility] Urine clarity by refractomet ry automatedOrdered By: Shana Mercedes on 08-10-2022 Clarity Refractometry automated (U) Clear Clear [facility] Urine glucose measurement by automated test strip (mass/volume)Ordered By: Shana Mercedes on 08-10-2022 Glucose Auto test strip (U) [Mass/Vol] Normal mg/dL Normal [facility] Urine hemoglobin detection b y automated test stripOrdered By: Shana Mercedes on 08-10-2022 Hemoglobin Auto test strip Ql (U) Negative Negative [facility] Urine leukocyte esterase det ection by automated test stripOrdered By: Shana Mercedes on 08-10-2022 Leukocyte esterase Auto test strip Ql (U) 3+ Negative [facility] Urobilinogen Auto test strip (U) [Mass/Vol]Ordered By: Shana Mercedes on 08-10-2022 Urobilinogen (U) [Mass/Vol] Normal mg/dL Normal [facility] pH Auto test strip (U)Ordere d By: Shana Mercedes on 08-10-2022 pH (U) 6.0 [pH] 5.0-9.0 [facility] AMYLASEon 07-08-2022 Amylase [Catalytic activity/Vol] 41 U/L Normal 25-115 [facility] Comment on above: Performed By: #### C MP, MOO, LIPA #### [facility] [address] [place] [address] Dr. Christo Mota CBC AUTO DIFFon 07-08-2022 BASO # 0.1 103/ul Normal 0.0-0.1 [facility] Comment on above: Performed By: #### C MP, MOO, LIPA #### [facility] [address] [place] [address] Dr. Christo Mota Basophils/100 WBC (Bld) 1.2 % Normal 0.2-2.0 [facility] Comment on above: Performed By: #### C MP, MOO, LIPA #### [facility] [address] [place] [address] Dr. Christo Mota EO # 0.1 103/ul Normal 0.0-0.7 [facility] Comment on above: Performed By: #### C MP, MOO, LIPA #### [facility] [address] [place] [address] Dr. Christo Mota Eosinophils/100 WBC (Bld) 1.8 % Normal 0.9-7.0 [facility] Comment on above: Performed By: #### C MP, MOO, LIPA #### [facility] [address] [place] [address] Dr. Christo Mota Erythrocyte distribution width (RBC) [Ratio] 14.0 % Normal 11.0-15.0 [facility] Comment on above: Performed By: #### C MP, MOO, LIPA #### [facility] [address] [place] [address] Dr. Christo Mota Hematocrit (Bld) [Volume fraction] 41.4 % Normal 36.0-48.0 [facility] Comment on above: Performed By: #### C MP, MOO, LIPA #### [facility] [address] [place] [address] Dr. Christo Mota Hemoglobin (Bld) [Mass/Vol] 13.5 g/dL Normal 12.0-16.0 [facility] Comment on above: Performed By: #### C MOO DIEHL, LIPA #### [facility] [address] [place] [address] Dr. Christo Mota IG # 0.03 10e3/ul Normal 0.00-0.03 [facility] Comment on above: Performed By: #### C MP MOO, LIPA #### [facility] [address] [place] [address] Dr. Christo Mota IG % 0.4 % Normal 0.0-0.5 [facility] Comment on above: Performed By: #### C MOO DIEHL, LIPA #### [facility] [address] [place] [address] Dr. Christo Mota LYMPH # 2.0 103/ul Normal 1.2-3.8 [facility] Comment on above: Performed By: #### C MOO DIEHL, LIPA #### [facility] [address] [place] [address] Dr. Christo Mota Lymphocytes/100 WBC (Bld) 27.8 % Normal 20.5-60.0 [facility] Comment on above: Performed By: #### C MOO DIEHL, LIPA #### [facility] [address] [place] [address] Dr. Christo Mota MANUAL DIFF REQ NO Normal [facility] Comment on above: Performed By: #### C MOO DIEHL, LIPA #### [facility] [address] [place] [address] Dr. Christo Mota MCH (RBC) [Entitic mass] 28.1 pg Normal 26.7-34.0 [facility] Comment on above: Performed By: #### C MOO DIEHL, LIPA #### [facility] [address] [place] [address] Dr. Christo Mota MCHC (RBC) [Mass/Vol] 32.6 g/dL Normal 29.9-35.2 [facility] Comment on above: Performed By: #### C MP MOO, LIPA #### [facility] [address] [place] [address] Dr. Christo Mota MCV (RBC) [Entitic vol] 86.1 fL Normal 81.0-99.0 [facility] Comment on above: Performed By: #### C MP MOO, LIPA #### [facility] [address] [place] [address] Dr. Christo Mota MONO # 0.4 103/ul Normal 0.3-0.8 [facility] Comment on above: Performed By: #### C MP MOO, LIPA #### [facility] [address] [place] [address] Dr. Christo Mota Monocytes/100 WBC (Bld) 6.0 % Normal 1.7-12.0 [facility] Comment on above: Performed By: #### C MP, MOO, LIPA #### [facility] [address] [place] [address] Dr. Christo Mota NEUT # 4.6 103/ul Normal 1.4-6.5 [facility] Comment on above: Performed By: #### C MP MOO, LIPA #### [facility] [address] [place] [address] Dr. Christo Mota Neutrophils/100 WBC (Bld) 62.8 % Normal 43.0-75.0 [facility] Comment on above: Performed By: #### C MP MOO, LIPA #### [facility] [address] [place] [address] Dr. Christo Mota Platelet mean volume (Bld) [Entitic vol] 9.2 fL Critically low 9.5-13.5 [facility] Comment on above: Performed By: #### C MP, MOO, LIPA #### [facility] [address] [place] [address] Dr. Christo Mota PLT 274 103/ul Normal 150-450 [facility] Comment on above: Performed By: #### C MP, MOO, LIPA #### [facility] [address] [place] [address] Dr. Christo Mota RBC 4.81 106/ul Normal 4.20-5.40 [facility] Comment on above: Performed By: #### C MOO DIEHL, LIPA #### [facility] [address] [address] [address] Christo Mota WBC 7.3 103/ul Normal 4.0-11.0 [facility] Comment on above: Performed By: #### C MOO DIEHL, LIPA #### [facility] [address] [address] ABD/PELVIS WO CONon [...] SHANA WINTERS Date: 2022-07-08 11:42 Normal [facility] CULTURE URINEon 07-08-2022 CULTURE URINE Culture Observations: NO GROWTH Normal [facility] Comment on above: Performed By: #### U RCX #### [facility] [address] [place], [place] [address] Dr. Christo Mota ER URINE PROFILEon Bilirubin Ql (U) Negative Normal NEGATIVE [facility] Comment on above: Performed By: #### U MICRO, ERUR #### [facility] [address] [address] [address] Christo Mota Clarity (U) CLEAR Normal CLEAR [facility] Comment on above: Performed By: #### U MICRO, ERUR #### [facility] [address] [address] [address] Christo Mota Color (U) LT. YELLOW Normal YELLOW [facility] Comment on above: Performed By: #### U MICRO, ERUR #### [facility] [address] [address] [address] Christo Mota ERUAHD A micrscopic examination will be performed if indicated. Normal [facility] Comment on above: Performed By: #### U MICRO, ERUR #### [facility] [address] [place] [address] Dr. Christo Mota Glucose Ql (U) Negative Normal NEGATIVE [facility] Comment on above: Performed By: #### U MICRO, ERUR #### [facility] [address] [address] [address] Christo Mota Hemoglobin Ql (U) Negative Normal NEGATIVE [facility] Comment on above: Performed By: #### U MICRO, ERUR #### [facility] [address] [place] [address] Dr. Christo Mota Ketones Ql (U) Negative Normal NEGATIVE [facility] Comment on above: Performed By: #### U MICRO, ERUR #### [facility] [address] [address] [address] Christo Mota LEUKOCYTES SMALL Abnormal NEGATIVE [facility] Comment on above: Performed By: #### U MICRO, ERUR #### [facility] [address] [address] [address] Christo Mota Nitrite Ql (U) Negative Normal NEGATIVE [facility] Comment on above: Performed By: #### U MICRO, ERUR #### [facility] [address] [place] [address] Dr. Christo Mota pH (U) 6.0 [pH] Normal 5-9 [facility] Comment on above: Performed By: #### U MICRO, ERUR #### [facility] [address] [place] [address] Dr. Christo Mota SPEC GRAVITY >=1.030 Abnormal 1.005-<=1.02 5 [facility] Comment on above: Performed By: #### U MICRO, ERUR #### [facility] [address] [place] [address] Dr. Christo Mota UA PROTEIN Negative Normal NEGATIVE/ TRACE [facility] Comment on above: Performed By: #### U MICRO, ERUR #### [facility] [address] [place] [address] Dr. Christo Mota UR MICRO IND INDICATED Normal [facility] Comment on above: Performed By: #### U MICRO, ERUR #### [facility] [address] [place] [address] Dr. Christo Mota Urobilinogen Qn (U) 0.2 {Eryn'U}/dL Normal 0.2 - 1. 0 [facility] Comment on above: Performed By: #### U MICRO, ERUR #### [facility] [address] [place] [address] Dr. Christo Mota LIPASEon 07-08-2022 Lipase [Catalytic activity/Vol] 112.0 U/L Normal 73.0-393.0 [facility] Comment on above: Performed By: #### C MP, MOO, LIPA #### [facility] [address] [place] [address] Dr. Christo Mota PROF 14(COMP METB)on 022 Albumin [Mass/Vol] 3.5 g/dL Normal 3.4-5.0 [facility] Comment on above: Performed By: #### C MP, MOO, LIPA #### [facility] [address] [place] [address] Dr. Christo Mota Albumin/Globulin [Mass ratio] 0.9 {ratio} Normal [facility] Comment on above: Performed By: #### C MP, MOO, LIPA #### [facility] [address] [place] [address] Dr. Christo Mota ALP [Catalytic activity/Vol] 73 U/L Normal 46-116 [facility] Comment on above: Performed By: #### C MP, MOO, LIPA #### [facility] [address] [place] [address] Dr. Christo Mota ALT [Catalytic activity/Vol] 31 U/L Normal 14-59 [facility] Comment on above: Performed By: #### C MP, MOO, LIPA #### [facility] [address] [place] [address] Dr. Christo Mota Anion gap [Moles/Vol] 10.0 mmol/L Normal [facility] Comment on above: Performed By: #### C MP MOO, LIPA #### [facility] [address] [place] [address] Dr. Christo Mota AST [Catalytic activity/Vol] 36 U/L Normal 15-37 [facility] Comment on above: Performed By: #### C MP MOO, LIPA #### [facility] [address] [place] [address] Dr. Christo Mota Bilirubin [Mass/Vol] 0.4 mg/dL Normal 0.2-1.0 [facility] Comment on above: Performed By: #### C FAZAL MOO, LIPA #### [facility] [address] [place] [address] Dr. Christo Mota Calcium [Mass/Vol] 8.8 mg/dL Normal 8.5-10.1 [facility] Comment on above: Performed By: #### C MP, MOO, LIPA #### [facility] [address] [place] [address] Dr. Christo Mota Chloride [Moles/Vol] 105 mmol/L Normal 98-107 [facility] Comment on above: Performed By: #### C MP, MOO, LIPA #### [facility] [address] [place] [address] Dr. Christo Mota CO2 [Moles/Vol] 27.6 mmol/L Normal 21.0-32.0 [facility] Comment on above: Performed By: #### C MP, MOO, LIPA #### [facility] [address] [address] [address] Christo Mota Creatinine [Mass/Vol] 0.62 mg/dL Normal 0.55-1.02 [facility] Comment on above: Performed By: #### C MOO DIEHL LIPA #### [facility] [address] [address] [address] Christo Mota EGFR-AF ECUADOREAN >60 Normal >=60 [facility] Comment on above: Performed By: #### C MOO DIEHL LIPA #### [facility] [address] [address] [address] Christo Mota EGFR-NON AF ECUADOREAN >60 Normal >=60 [facility] Comment on above: Performed By: #### C MOO DIEHL LIPA #### [facility] [address] [place] [address] Dr. Christo Mota Globulin (S) [Mass/Vol] 3.8 g/dL Normal [facility] Comment on above: Performed By: #### C MOO DIEHL LIPA #### [facility] [address] [address] [address] Christo Mota Glucose [Mass/Vol] 120 mg/dL Critically high 74-106 [facility] Comment on above: Performed By: #### C MOO DIEHL LIPA #### [facility] [address] [place] [address] Dr. Christo Mota Potassium [Moles/Vol] 4.6 mmol/L Normal 3.5-5.1 [facility] Comment on above: Performed By: #### C MOO DIEHL LIPA #### [facility] [address] [address] [address] Christo Mota Protein [Mass/Vol] 7.3 g/dL Normal 6.4-8.2 [facility] Comment on above: Performed By: #### C MOO DIEHL, LIPA #### [facility] [address] [address] [address] Christo Mota Sodium [Moles/Vol] 138 mmol/L Normal 136-145 [facility] Comment on above: Performed By: #### C MOO DIEHL LIPA #### [facility] [address] [address] [address] Crhisto Mota Urea nitrogen [Mass/Vol] 13.0 mg/dL Normal 7.0-18.0 [facility] Comment on above: Performed By: #### C MP, MOO, LIPA #### [facility] [address] [place] [address] Dr. Christo Mota Urea nitrogen/Creatinine [Mass ratio] 21.0 mg/mg Normal [facility] Comment on above: Performed By: #### C MP, MOO, LIPA #### [facility] [address] [address] [address] Christo Mota URINE MICROSCOPIC ONLYon BACTERIA NONE SEEN Normal NONE SEEN [facility] Comment on above: Performed By: #### U MICRO, ERUR #### [facility] [address] [place] [address] Dr. Christo Mota Bacteria identified Cx Nom (U) INDICATED Normal [facility] Comment on above: Performed By: #### U MICRO, ERUR #### [facility] [facility] [address] [place] [address] Dr. Christo Mota CAST NONE SEEN Normal NONE SEEN [facility] Comment on above: Performed By: #### U MICRO, ERUR #### [facility] [address] [place] [address] Dr. Christo Mota Crystals LM Nom (Urine sed) NONE SEEN Normal NONE SEEN [facility] Comment on above: Performed By: #### U MICRO, ERUR #### [facility] [address] [place] [address] Dr. Christo Mota Epithelial cells LM Ql (Urine sed) MODERATE Abnormal NONE SEEN /RARE [facility] Comment on above: Performed By: #### U MICRO, ERUR #### [facility] [address] [place] [address] Dr. Christo Mota MUCOUS NONE SEEN Normal NONE SEEN [facility] Comment on above: Performed By: #### U MICRO, ERUR #### [facility] [address] [place] [address] Dr. Christo Mota RBC NONE SEEN Abnormal 0-2 [facility] Comment on above: Performed By: #### U MICRO, ERUR #### [facility] [address] [address] [address] Christo Mota WBC 5-10 Abnormal NONE SEEN [facility] Comment on above: Performed By: #### U MICRO, ERUR #### [facility] [address] CHEST WO CONon [...] by: SANJEEV ALMANZA Date: 2022-06-30 19:30 Normal [facility] IMMUNOGLOBULIN E, TOTALon Immunoglobulin E, Total 44 IU/mL Normal 6-495 [facility] Comment on above: Performed By: #### I GETOT #### [facility] [address] [address] [address] Christo Mota ASPERGILLUS AB, QUANTITATIVE DIDon 06-05-2022 Aspergillus flavus Negative Normal Neg:<1:1 [facility] Comment on above: Performed By: #### C MP, MOO, LIPA #### [facility] [address] [address] [address] Christo Mota Aspergillus fumigatus Negative Normal Neg:<1:1 [facility] Comment on above: Performed By: #### C FAZAL MOO, LIPA #### [facility] [address] [address] [address] Christo Mota Aspergillus niger Negative Normal Neg:<1:1 [facility] Comment on above: Performed By: #### C MP MOO, LIPA #### [facility] [address] [address] [address] Christo Mota ANTI NEUTROPHIL CYTOPLASMIC AB (ANCA) PRon 06-03-2022 Anti-MPO Antibodies <0.2 Normal 0.0-0.[address] [facility] Comment on above: Result Comment: Perf ormed at: BN Performed By: #### C FAZAL MOO, LIPA #### [facility] [address] [place] [address] Dr. Christo Mota Anti-PR3 Antibodies <0.2 Normal 0.0-0.[address] [facility] Comment on above: Result Comment: Perf ormed at: BN Performed By: #### C FAZAL MOO, LIPA #### [facility] [address] [place] [address] Dr. Christo Mota Atypical pANCA <1:20 Normal Neg:<1:20 [facility] Comment on above: Result Comment: The atypical pANCA pattern has been observed in a significant percentage of patients with ulcerative colitis, primary sclerosing cholangitis and autoimmune hepatitis. Performed at: CB Performed By: #### C FAZAL MOO, LIPA #### [facility] [address] [place] [address] Dr. Christo Mota Cytoplasmic (C-ANCA) <1:20 Normal Neg:<1:20 [facility] Comment on above: Result Comment: Perf ormed at: CB Performed By: #### C MP OMO, LIPA #### [facility] [address] [place] [address] Dr. Christo Mota Perinuclear (P-ANCA) <1:20 Normal Neg:<1:20 [facility] Comment on above: Result Comment: The presence of positive fluorescence exhibiting P-ANCA or C-ANCA patterns alone is not specific for the diagnosis of Andreia's Granulomatosis (WG) or microscopic polyangiitis. Decisions about treatment should not be based solely on ANCA IFA results. The [employer] ANCA [employer] Consensus recommends follow up testing of positive sera with both PA-3 and MPO-ANCA enzyme immunoassays. As many as 5% serum samples are positive only by EIA. Ref. AM J Clin Pathol 1999;111:507-513. Performed at: CB Performed By: #### C MOO DIEHL LIPA #### [facility] [address] [place] [address] Dr. Christo Mota CBC AUTO DIFFon 06-01-2022 BASO # 0.1 103/ul Normal 0.0-0.1 [facility] Comment on above: Performed By: #### C FAZAL MOO, LIPA #### [facility] [address] [place] [address] Dr. Christo Mota Basophils/100 WBC (Bld) 1.0 % Normal 0.2-2.0 [facility] Comment on above: Performed By: #### C MOO DIEHL, LIPA #### [facility] [address] [address] [address] Christo Mota EO # 0.2 103/ul Normal 0.0-0.7 [facility] Comment on above: Performed By: #### C MOO DIEHL, LIPA #### [facility] [address] [address] [address] Christo Mota Eosinophils/100 WBC (Bld) 2.1 % Normal 0.9-7.0 [facility] Comment on above: Performed By: #### C MOO DIEHL, LIPA #### [facility] [address] [address] [address] Christo Mota Erythrocyte distribution width (RBC) [Ratio] 13.7 % Normal 11.0-15.0 [facility] Comment on above: Performed By: #### C FAZAL MOO, LIPA #### [facility] [address] [address] [address] Christo Mota Hematocrit (Bld) [Volume fraction] 42.0 % Normal 36.0-48.0 [facility] Comment on above: Performed By: #### C MOO DIEHL LIPA #### [facility] [address] [place] [address] Dr. Christo Mota Hemoglobin (Bld) [Mass/Vol] 13.2 g/dL Normal 12.0-16.0 [facility] Comment on above: Performed By: #### C FAZAL MOO, LIPA #### [facility] [address] [place] [address] Dr. Christo Mota IG # 0.03 10e3/ul Normal 0.00-0.03 [facility] Comment on above: Performed By: #### C MOO DIEHL LIPA #### [facility] [address] [place] [address] Dr. Christo Mota IG % 0.4 % Normal 0.0-0.5 [facility] Comment on above: Performed By: #### C MOO DIEHL LIPA #### [facility] [address] [place] [address] Dr. Christo Mota LYMPH # 2.3 103/ul Normal 1.2-3.8 [facility] Comment on above: Performed By: #### C MOO DIEHL LIPA #### [facility] [address] [place] [address] Dr. Christo Mota Lymphocytes/100 WBC (Bld) 28.6 % Normal 20.5-60.0 [facility] Comment on above: Performed By: #### C MOO DIEHL LIPA #### [facility] [address] [place] [address] Dr. Christo Mota MANUAL DIFF REQ NO Normal [facility] Comment on above: Performed By: #### C MOO DIEHL LIPA #### [facility] [address] [place] [address] Dr. Christo Mota MCH (RBC) [Entitic mass] 27.8 pg Normal 26.7-34.0 [facility] Comment on above: Performed By: #### C MOO DIEHL, LIPA #### [facility] [address] [place] [address] Dr. Christo Mota MCHC (RBC) [Mass/Vol] 31.4 g/dL Normal 29.9-35.2 [facility] Comment on above: Performed By: #### C MP MOO, LIPA #### [facility] [address] [address] [address] Christo Mota MCV (RBC) [Entitic vol] 88.4 fL Normal 81.0-99.0 [facility] Comment on above: Performed By: #### C MP, MOO, LIPA #### [facility] [address] [address] [address] Christo Mota MONO # 0.5 103/ul Normal 0.3-0.8 [facility] Comment on above: Performed By: #### C MP, MOO, LIPA #### [facility] [address] [place] [address] Dr. Christo Mota Monocytes/100 WBC (Bld) 6.8 % Normal 1.7-12.0 [facility] Comment on above: Performed By: #### C MP, MOO, LIPA #### [facility] [address] [address] [address] Christo Mota NEUT # 4.8 103/ul Normal 1.4-6.5 [facility] Comment on above: Performed By: #### C MP, MOO, LIPA #### [facility] [address] [address] [address] Christo Mota Neutrophils/100 WBC (Bld) 61.1 % Normal 43.0-75.0 [facility] Comment on above: Performed By: #### C MP, MOO, LIPA #### [facility] [address] [address] [address] Christo Mota Platelet mean volume (Bld) [Entitic vol] 9.0 fL Critically low 9.5-13.5 [facility] Comment on above: Performed By: #### C MP, MOO, LIPA #### [facility] [address] [address] [address] Christo Mota PLT 257 103/ul Normal 150-450 [facility] Comment on above: Performed By: #### C MP, MOO, LIPA #### [facility] [address] [address] [address] Christo Mota RBC 4.75 106/ul Normal 4.20-5.40 [facility] Comment on above: Performed By: #### C MP, MOO, LIPA #### [facility] [address] [address] [address] Christo Mota WBC 7.9 103/ul Normal 4.0-11.0 [facility] Comment on above: Performed By: #### C MP, MOO, LIPA #### [facility] [address] [address] [address] Christo Mota Dipstick and Microscopicon 0 11-17-2021 Appearance (U) Turbid Critically abnormal Clear [facility] Comment on above: Order Comment: Name Collection Type:: Collection Method Unknown Performed By: #### A DDONUAPLUS, CUU #### [address] Bacteria,Urine None Seen Normal None Seen [facility] Comment on above: Order Comment: Name Collection Type:: Collection Method Unknown Performed By: #### A DDONUAPLUS, CUU #### [facility] [address] [place] [address] [place] Bilirubin,Urine Negative Normal Negative [facility] Comment on above: Order Comment: Name Collection Type:: Collection Method Unknown Performed By: #### A DDONUAPLUS, CUU #### [facility] [address] [place] [address] [place] Color (U) Yellow Normal Yellow [facility] Comment on above: Order Comment: Name Collection Type:: Collection Method Unknown Performed By: #### A DDONUAPLUS, CUU #### [facility] [address] [place] [address] [place] Glucose Ql (U) Normal Normal Normal [facility] Comment on above: Order Comment: Name Collection Type:: Collection Method Unknown Performed By: #### A DDONUAPLUS, CUU #### [facility] [address] [place] [address] [place] Hyaline Casts,Urine 0-8 Normal 0-8 [facility] Comment on above: Order Comment: Name Collection Type:: Collection Method Unknown Result Comment: PERF ORMED BY: [place] [address] PATHOLOGIST RESIDENTIAL DRIVER SHO RODRIGUEZ M.D. Performed By: #### A DDONUAPLUS, CUU #### [address] Ketones Ql (U) Negative Normal Negative [facility] Comment on above: Order Comment: Name Collection Type:: Collection Method Unknown Performed By: #### A DDONUAPLUS, CUU #### [address] Leukocyte esterase Test strip Ql (U) 3+ High Negative [facility] Comment on above: Order Comment: Name Collection Type:: Collection Method Unknown Performed By: #### A DDONUAPLUS, CUU #### [address] Nitrite,Urine Negative Normal Negative [facility] Comment on above: Order Comment: Name Collection Type:: Collection Method Unknown Performed By: #### A DDONUAPLUS, CUU #### [address] Occult Blood,Urine Negative Normal Negative [facility] Comment on above: Order Comment: Name Collection Type:: Collection Method Unknown Result Comment: PERF ORMED BY: [place] [address] PATHOLOGIST RESIDENTIAL DRIVER SHO RODRIGUEZ M.D. Performed By: #### A DDONUAPLUS, CUU #### [place] [address] [place] Othe Crystals,Urine None Seen Normal [facility] Comment on above: Order Comment: Name Collection Type:: Collection Method Unknown Performed By: #### A DDONUAPLUS, CUU #### [place] [address] [place] Protein,Urine Negative Normal Negative [facility] Comment on above: Order Comment: Name Collection Type:: Collection Method Unknown Performed By: #### A DDONUAPLUS, CUU #### [address] RBC,Urine 5-9 High 0-4 [facility] Comment on above: Order Comment: Name Collection Type:: Collection Method Unknown Performed By: #### A DDONUAPLUS, CUU #### [address] Specificy Purcell,Urine 1.030 Normal 1.001-1.030 [facility] Comment on above: Order Comment: Name Collection Type:: Collection Method Unknown Performed By: #### A DDONUAPLUS, CUU #### [address] Squamous Epithelial Cell,Urine 3-4 High 0-2 [facility] Comment on above: Order Comment: Name Collection Type:: Collection Method Unknown Performed By: #### A DDONUAPLUS, CUU #### [address] Urobilinogen,Urine Normal Normal Normal [facility] Comment on above: Order Comment: Name Collection Type:: Collection Method Unknown Performed By: #### A DDONUAPLUS, CUU #### [address] WBC,Urine 50-100 High 0-4 [facility] Comment on above: Order Comment: Name Collection Type:: Collection Method Unknown Performed By: #### A DDONUAPLUS, CUU #### [address] Urine 10 SGon 11-17-2021 pH (U) 5.0 [pH] Normal 5.0-9.0 [employer] [facility] [employer] Other Comment on above: Order Comment: Name Collection Type:: Collection Method Unknown Performed By: #### A DDONUAPLUS, CUU #### [address] Albumin DL <= 20 mg/L (U) [Mass/Vol] trace [employer] Other Albumin DL <= 20 mg/L (U) [Mass/Vol] moderate [employer] Other Urine 10 SG Negative [employer] Other Urine 10 SG 1.030 [employer] Other Urine 10 SG trace [employer] Other Urine 10 SG 0.2 [employer] Other Urine Cultureon 11-17-2021 Bacteria identified Cx Nom (U) 15,000 colonies/ml mixed bacterial skin contaminants 2 Days PERFORMED BY: [place] [address] PATHOLOGIST RESIDENTIAL DRIVER SHO RODRIGUEZ M.D. [facility] Comment on above: Performed By: #### A ADRIANE VALENCIAU #### [address] Roger 06-25-2019 CNPN Telephone (PULMAV) JAMAICA CAMERON ([id number]) 1960 F Date Time Provider Department 06/25/19 BRITTANY HART During your visit today, we recorded the following information about you: Sherin Dias LPN 06/25/2019 9:07 AM Addendum Faxed request for medical records to patients previous inspector coated fabrics with confirmation Verified RAD images scanned into chart, mailed original CD back to patient Darek Hernandez Anibal ROJASN 06/26/2019 10:10 AM Signed Medical records received and placed on Dr. Hart's desk for review. Brittany Hart MD 12/14/2019 2:34 PM Signed Records received PFTs from September 17, 2016 at [facility] in [facility] They show significant restrictive pattern FVC is [...] work ordered immunoglobulins IgE, Pranay, ANCA, UNRULY Brittany Hart MD 12/14/2019 2:35 PM Signed I [...] adult (HCC) [Z68.43] 06/19/2019 Encounter Status:Closed by SHERIN DIAS LPN on 06/25/19 [facility] CNOVon 06-22-2019 CNOV Office Visit (PULMAV) JAMAICA CAMERON ([id number]) 1960 F Date Time Provider Department 06/22/19 [...] me. She saw a pulmonary doctor in [place], but didn't like him. He was evaluating her nodules, brought up chemo to her, she said she would not do chemo and so he left the room she says. She tells me he told her that she had 30% less lung She felt she only had asthma Dr Huynh was the inspector coated fabrics at [facility]. She brought 4 different CDs with her [...] on floors She saw allergy team in [place] - she is allergic to hoarse, dogs, [...] been a second opinion to compare to [facility] pulmonary recommendations: This is a 56-year-old lady [...] with a PET-CT scan which her primary inspector coated fabrics recommended. Based on the PET-CT scan further [...] and she will follow-up with her primary inspector coated fabrics in [place]. She is most welcome to call us [...] file Gets together: Not on file Attends yazidi service: Not on file Active member of [...] Hart MD Pulmonary and Critical Care Medicine [facility] [place] June 22, 2019 11:10 AM I spent 80 minutes in the visit, with more than 50% of the total wzvi-zy-mlyw time of the visit in counseling / coordination of care. Referring Provider: SHANA MERCEDES [[id number]] Allergies As of Date: 06/22/2019 Noted Allergy [...] classification, unspecified obesity type [E66.9] Order(s):LUNG VOLUMES [1645659] Order #: [id number] FUTURE LUNG DIFFUSION CAPACITY (DLCO) [[id number]] Order #: [id number] FUTURE CT CHEST WO IVCON [[id number]] Order #: [id number] FUTURE fluticasone (FLOVENT HFA) 44 mcg/actuation inhalerInhale [...] Date 06/22/2019 Noted Resolved BMI 50.0-59.9, adult ([facility]) [Z68.43] INVALID FOR* Prescriptions ordered this encounter Disp Refills Start End FLUTICASONE PROPIONATE 44 MCG/ACTUAT* 1 In* 5 06/22/2019 Route: INHALATION Sig: Inhale 1 Puff as instructed twice daily. Rinse mouth out after use Disposition: Return in about 4 months (around 10/23/2019). Follow-up and Disposition History Recorded Encounter Status:Closed by BRITTANY HART MD on 06/22/19 [facility] OBSOLETEon 06-22-2019 OBSOLETE Procedure (PULMAV) JAMAICA CAMERON ([id number]) 1960 F Date Time Provider Department 06/22/19 10:00 AM PULM LAB [facility] REJ PULMAV During your visit today, we recorded the following information about you: Referring Provider: SHANA MERCEDES [[id number]] Allergies As of Date: 06/22/2019 (Not on File) Date Reviewed: 06/22/2019 Reviewed by: Sujey (Hailey) Hailey Urena - Fully Assessed Reason for Visit: Spirometry [191] Visit Diagnosis:Shortness of breath [R06.02] Order(s):SPIROMETRY WITH DILATOR IF OBSTRUCTED [[id number]] Order #: [id number]. #:[id number] Prescriptions as of 06/22/2019 Sig: OMEPRAZOLE 20 MG CAPSULE,SIENNA* Take 20 mg by mouth once bel* LEVOTHYROXINE 112 MCG TABLET Take 112 mcg by mouth daily b* MULTIVITAMIN CAPSULE Take 1 capsule by mouth once * RESVERATROL-QUERCETI N ORAL Take 500 mg by mouth as neede* Problem List As Of Date: 06/22/2019 (None) Encounter Status:Closed by SUJEY JIMENEZ RRT on 06/22/19 [facility] PROGRESSon 06-22-2019 PROGRESS HNO ID: [id number] Author: Brittany Hart Service: ? Author Type: [...] me. She saw a pulmonary doctor in [place], but didn't like him. He was evaluating her nodules, brought up chemo to her, she said she would not do chemo and so he left the room she says. She tells me he told her that she had 30% less lung She felt she only had asthma Dr Huynh was the inspector coated fabrics at [facility]. She brought 4 different CDs with her [...] on floors She saw allergy team in [place] - she is allergic to hoarse, dogs, [...] been a second opinion to compare to [facility] pulmonary recommendations: This is a 56-year-old lady [...] with a PET-CT scan which her primary inspector coated fabrics recommended. Based on the PET-CT scan further [...] and she will follow-up with her primary inspector coated fabrics in [place]. She is most welcome to call us [...] file Gets together: Not on file Attends yazidi service: Not on file Active member of [...] noted below: Care everywhere CT chest from 3/27/18 - no actual images just report There [...] Hart MD Pulmonary and Critical Care Medicine [facility] [place] June 22, 2019 11:10 AM I spent 80 minutes in the visit, with more than 50% of the total rsvh-bp-mwkl time of the visit in counseling / coordination of care. Normal [facility] Vital Signs Date Time Vital Sign Value Performing Clinician Facility 04-16-2025 08:03-0400 Body height 152.4 cm Shana Mercedes DO Work Phone: [facility] 04-16-2025 08:03-0400 Body mass index (BMI) [Ratio] 58 kg/m2 Shana Mercedes DO Work Phone: [facility] 04-16-2025 08:03-0400 Body temperature 97.9 [degF] Shana Mercedes DO Work Phone: [facility] 04-16-2025 08:03-0400 Body weight 134.71 kg Shana Mercedes DO Work Phone: [facility] 04-16-2025 08:03-0400 Diastolic blood pressure 88 mm[Hg] Shana Mercedes DO Work Phone: [facility] 04-16-2025 08:03-0400 Heart rate 85 /min Shana Mercedes DO Work Phone: [facility] 04-16-2025 08:03-0400 SaO2% (BldA) [Mass fraction] 97 % Shana Mercedes DO Work Phone: [facility] 04-16-2025 08:03-0400 Systolic blood pressure 138 mm[Hg] Shana Mercedes DO Work Phone: [facility] 12-31-2024 09:01-0400 Body height 152.4 cm [facility] 12-31-2024 09:01-0400 Body mass index (BMI) [Ratio] 58 kg/m2 [facility] 12-31-2024 09:01-0400 Body temperature 98.3 [degF] [facility] 12-31-2024 09:01-0400 Body weight 134.71 kg [facility] 12-31-2024 09:01-0400 Diastolic blood pressure 88 mm[Hg] [facility] 12-31-2024 09:01-0400 Heart rate 88 /min [facility] 12-31-2024 09:01-0400 SaO2% (BldA) [Mass fraction] 96 % [facility] 12-31-2024 09:01-0400 Systolic blood pressure 130 mm[Hg] [facility] 12-17-2024 10:46-0400 Body height 152.4 cm [facility] 12-17-2024 10:46-0400 Body mass index (BMI) [Ratio] 56.8 kg/m2 [facility] 12-17-2024 10:46-0400 Body temperature 98.2 [degF] [facility] 12-17-2024 10:46-0400 Body weight 132 kg [facility] 12-17-2024 10:46-0400 Diastolic blood pressure 82 mm[Hg] [facility] 12-17-2024 10:46-0400 Heart rate 72 /min [facility] 12-17-2024 10:46-0400 Respiratory rate 16 /min [facility] 12-17-2024 10:46-0400 SaO2% (BldA) [Mass fraction] 98 % [facility] 12-17-2024 10:46-0400 Systolic blood pressure 126 mm[Hg] [facility] 10-01-2024 09:00-0500 Body height 152.4 cm [facility] 10-01-2024 09:00-0500 Body mass index (BMI) [Ratio] 57 kg/m2 [facility] 10-01-2024 09:00-0500 Body temperature 98.6 [degF] [facility] 10-01-2024 09:00-0500 Body weight 132.44 kg [facility] 10-01-2024 09:00-0500 Diastolic blood pressure 82 mm[Hg] [facility] 10-01-2024 09:00-0500 SaO2% (BldA) [Mass fraction] 97 % [facility] 10-01-2024 09:00-0500 Systolic blood pressure 128 mm[Hg] [facility] 07-17-2024 11:37-0500 Body height 152.4 cm [facility] 07-17-2024 11:37-0500 Body mass index (BMI) [Ratio] 53.5 kg/m2 [facility] 07-17-2024 11:37-0500 Body temperature 97.3 [degF] [facility] 07-17-2024 11:37-0500 Body weight 124.28 kg [facility] 07-17-2024 11:37-0500 Diastolic blood pressure 84 mm[Hg] [facility] 07-17-2024 11:37-0500 Heart rate 99 /min [facility] 07-17-2024 11:37-0500 SaO2% (BldA) [Mass fraction] 98 % [facility] 07-17-2024 11:37-0500 Systolic blood pressure 130 mm[Hg] [facility] 02-13-2024 16:26-0400 Body height 152.4 cm [facility] 02-13-2024 16:26-0400 Body mass index (BMI) [Ratio] 55.3 kg/m2 [facility] 02-13-2024 16:26-0400 Body temperature 97.6 [degF] [facility] 02-13-2024 16:26-0400 Body weight 128.36 kg [facility] 02-13-2024 16:26-0400 Diastolic blood pressure 82 mm[Hg] [facility] 02-13-2024 16:26-0400 Heart rate 84 /min [facility] 02-13-2024 16:26-0400 SaO2% (BldA) [Mass fraction] 97 % [facility] 02-13-2024 16:26-0400 Systolic blood pressure 134 mm[Hg] [facility] 01-04-2024 15:40-0400 Body temperature 98.2 [degF] [facility] 01-04-2024 15:40-0400 Body weight 127.91 kg [facility] 01-04-2024 15:40-0400 Diastolic blood pressure 84 mm[Hg] [facility] 01-04-2024 15:40-0400 Heart rate 77 /min [facility] 01-04-2024 15:40-0400 Respiratory rate 18 /min [facility] 01-04-2024 15:40-0400 SaO2% (BldA) [Mass fraction] 97 % [facility] 01-04-2024 15:40-0400 Systolic blood pressure 136 mm[Hg] [facility] 02-09-2023 11:10-0400 Body height 152.4 cm Shana Mercedes Other [employer] [facility] [employer] Other 02-09-2023 11:10-0400 Body mass index (BMI) [Ratio] 57.02 kg/m2 Shana Mercedes Other [employer] Other 02-09-2023 11:10-0400 Body temperature 98.4 [degF] Shana Mercedes Other [employer] Other 02-09-2023 11:10-0400 Body weight 132.45 kg Shana Mercedes Other [employer] Other 02-09-2023 11:10-0400 Diastolic blood pressure 86 mm[Hg] Shana Mercedes Other [employer] Other 02-09-2023 11:10-0400 Respiratory rate 18 /min Shana Mercedes Other [employer] Other 02-09-2023 11:10-0400 SaO2% (BldA) [Mass fraction] 97 % Shana Mercedes Other [employer] Other 02-09-2023 11:10-0400 Systolic blood pressure 136 mm[Hg] Shana Mercedes Other [employer] Other 11-01-2022 10:10-0500 Body height 152.4 cm Shana Mercedes Other [employer] Other 08-10-2022 12:10-0500 Body height 152.4 cm Shana Mercedes Other [employer] Other 08-10-2022 12:10-0500 Body mass index (BMI) [Ratio] 56.04 kg/m2 Shana Mercedes Other [employer] Other 08-10-2022 12:10-0500 Body temperature 97.9 [degF] Shana Mercedes Other [employer] Other 08-10-2022 12:10-0500 Body weight 130.18 kg Shana Mercedes Other [employer] Other 08-10-2022 12:10-0500 Diastolic blood pressure 82 mm[Hg] Shana Mercedes Other [employer] Other 08-10-2022 12:10-0500 Respiratory rate 18 /min Shana Mercedes Other [employer] Other 08-10-2022 12:10-0500 SaO2% (BldA) [Mass fraction] 98 % Shana Mercedes Other [employer] Other 08-10-2022 12:10-0500 Systolic blood pressure 124 mm[Hg] Shana Mercedes Other [employer] Other 05-12-2022 10:50-0400 Body height 152.4 cm Shana Mercedes Other [employer] Other 05-12-2022 10:50-0400 Body mass index (BMI) [Ratio] 54.97 kg/m2 Shana Mercedes Other [employer] Other 05-12-2022 10:50-0400 Body temperature 98.1 [degF] Shana Mercedes Other [employer] Other 05-12-2022 10:50-0400 Body weight 127.69 kg Shana Mercedes Other [employer] Other 05-12-2022 10:50-0400 Diastolic blood pressure 86 mm[Hg] Shana Mercedes Other [employer] Other 05-12-2022 10:50-0400 Respiratory rate 18 /min Shana Mercedes Other [employer] Other 05-12-2022 10:50-0400 SaO2% (BldA) [Mass fraction] 97 % Shana Mercedes Other [employer] Other 05-12-2022 10:50-0400 Systolic blood pressure 134 mm[Hg] Shana Mercedes Other [employer] Other 01-28-2022 11:50-0400 Body height 152.4 cm Shana Mercedes Other [employer] Other 01-28-2022 11:50-0400 Body mass index (BMI) [Ratio] 53.12 kg/m2 Shana Mercedes Other [employer] Other 01-28-2022 11:50-0400 Body temperature 97.7 [degF] Shana Mercedes Other [employer] Other 01-28-2022 11:50-0400 Body weight 123.38 kg Shana Mercedes Other [employer] Other 01-28-2022 11:50-0400 Diastolic blood pressure 84 mm[Hg] Shana Mercedes Other [employer] Other 01-28-2022 11:50-0400 Respiratory rate 19 /min Shana Mercedes Other [employer] Other 01-28-2022 11:50-0400 SaO2% (BldA) [Mass fraction] 97 % Shana Mercedes Other [employer] Other 01-28-2022 11:50-0400 Systolic blood pressure 134 mm[Hg] Shana Mercedes Other [employer] Other 11-17-2021 15:20-0500 Body height 152.4 cm Shana Mercedes Other [employer] Other 11-17-2021 15:20-0500 Body mass index (BMI) [Ratio] 52.92 kg/m2 Shana Mercedes Other [employer] Other 11-17-2021 15:20-0500 Body temperature 97.6 [degF] Shana Mago Other [employer] Other 11-17-2021 15:20-0500 Body weight 122.93 kg Shana Marlenadamaris Other [employer] Other 11-17-2021 15:20-0500 Diastolic blood pressure 86 mm[Hg] Shana Mago Other [employer] Other 11-17-2021 15:20-0500 Respiratory rate 18 /min Shana Mercedes Other [employer] Other 11-17-2021 15:20-0500 SaO2% (BldA) [Mass fraction] 99 % Sahna Mercedes Other [employer] Other 11-17-2021 15:20-0500 Systolic blood pressure 134 mm[Hg] Shana Marelnadamaris Other [employer] Other 07-29-2021 13:40-0500 Body height 152.4 cm Shana Mercedes Other [employer] Other 07-29-2021 13:40-0500 Body mass index (BMI) [Ratio] 52.63 kg/m2 Shana Mercedes Other [employer] Other 07-29-2021 13:40-0500 Body temperature 97.3 [degF] Shana Marlenadamaris Other [employer] Other 07-29-2021 13:40-0500 Body weight 122.25 kg Shana Mercedes Other [employer] Other 07-29-2021 13:40-0500 Diastolic blood pressure 88 mm[Hg] Shana Mercedes Other [employer] Other 07-29-2021 13:40-0500 Respiratory rate 18 /min Shana Mercedes Other [employer] Other 07-29-2021 13:40-0500 SaO2% (BldA) [Mass fraction] 97 % Shana Mercedes Other [employer] Other 07-29-2021 13:40-0500 Systolic blood pressure 132 mm[Hg] Shana Mercedes Other [employer] Other Encounters Encounter Date Encounter Type Care Provider Facility Start: 04-16-2025 End: 04-16-2025 ambulatory Shana Mercedes DO Work Phone: [facility] Work Phone: Start: 04-16-2025 End: 04-16-2025 Patient encounter procedure Shana Mercedes DO -[facility] Work Phone: Start: 12-31-2024 End: 12-31-2024 ambulatory [facility] Work Phone: Start: 12-31-2024 End: 12-31-2024 Patient encounter procedure [facility] Work Phone: Start: 12-17-2024 End: 12-17-2024 ambulatory [facility] Work Phone: Start: 12-17-2024 End: 12-17-2024 Patient encounter procedure [facility] Work Phone: Start: 10-01-2024 End: 10-01-2024 ambulatory [facility] Work Phone: Start: 10-01-2024 End: 10-01-2024 Patient encounter procedure [facility] [place] Work Phone: Start: 09-06-2024 Non-patient / Non-visit [facility] Work Phone: Start: 07-17-2024 End: 07-17-2024 ambulatory [facility] Work Phone: Start: 07-17-2024 End: 07-17-2024 Patient encounter procedure [facility] Work Phone: Start: 02-13-2024 End: 02-13-2024 ambulatory [facility] Work Phone: Start: 02-13-2024 End: 02-13-2024 Patient encounter procedure [facility] [place] Work Phone: Start: 01-04-2024 End: 01-04-2024 ambulatory [facility] Work Phone: Start: 01-04-2024 End: 01-04-2024 Patient encounter procedure [facility] Work Phone: Start: 12-29-2023 End: 12-30-2023 Emergency department patient visit VALENTIN Johansen [facility] Start: 11-22-2023 Non-patient / Non-visit [facility] Work Phone: Start: 09-14-2023 End: 09-14-2023 ambulatory Shana Mercedes Other [employer] Other Start: 09-14-2023 Telephone encounter Shana Mercedes [facility] [place] Start: 06-08-2023 End: 06-08-2023 ambulatory Shana Mercedes Other [employer] Other Start: 06-08-2023 Telephone encounter Shana Mercedes [facility] [place] Start: 03-22-2023 End: 03-22-2023 ambulatory Shana Mercedes Other [employer] Other Start: 03-22-2023 Telephone encounter Shana Mercedes [facility] Start: 02-23-2023 End: 02-23-2023 ambulatory Shana Mercedes Other [employer] Other Start: 02-23-2023 Telephone encounter Shana Mercedes [facility] Start: 02-09-2023 End: 02-09-[address] SHANA MERCEDES Facility: Start: 02-09-2023 Office outpatient vi sit 15 minutes Shana Mercedes [facility] Start: 02-09-2023 Telephone encounter Shana Mercedes [facility] Start: 11-01-2022 End: 11-01-2022 ambulatory Shana Mercedes Other [employer] Other Start: 11-01-2022 Telephone encounter Shana Mercedes [facility] [place] Start: 09-07-2022 End: 09-07-2022 ambulatory Shana Mercedes Other [employer] Other Start: 09-07-2022 Telephone encounter Shana Mercedes [facility] Start: 08-12-2022 End: 08-12-2022 ambulatory Shana Mercedes Other [employer] Other Start: 08-12-2022 Telephone encounter Shana Mercedes [facility] Start: 08-10-2022 Office outpatient vi sit 15 minutes Shana Mercedes [facility] [place] Start: 08-10-2022 End: 08-10-2022 ambulatory Shana Mercedes Facility:[facility] Start: 08-10-2022 End: 08-10-2022 ambulatory DO Shana Mercedes Work Phone: [facility] Work Phone: Start: 08-10-2022 End: 08-10-2022 Departed Referred DO Shana Mercedes Work Phone: [facility] [place] Start: 07-08-2022 End: 07-08-[address] SHANA WINTERS Facility:[facility] Start: 07-06-2022 End: 07-06-2022 ambulatory Shana Mercedes Other [employer] Other Start: 07-06-2022 Telephone encounter Shana Mercedes [facility] [place] Start: 06-30-2022 End: 07-01-[address] SHANA MERCEDES Facility:[facility] Start: 06-01-2022 End: 06-02-2022 ambulatory CRISTINE ROGERS . Facility:[facility] Start: 05-12-2022 End: 05-12-2022 ambulatory Shana Mercedes Other [employer] Other Start: 05-12-2022 Office outpatient vi sit 15 minutes Shana Mercedes [facility] [place] Start: 04-23-2022 End: 04-23-2022 ambulatory Shana Mercedes Other [employer] Other Start: 04-23-2022 Telephone encounter Shana Mercedes [facility] [place] Start: 01-28-2022 End: 01-28-2022 ambulatory Shana Mercedes Other [employer] Other Start: 01-28-2022 Office outpatient vi sit 25 minutes Shana Mercedes [facility] [place] Start: 11-20-2021 End: 11-20-2021 ambulatory Shana Mercedes Other [employer] Other Start: 11-20-2021 Telephone encounter Shana Mercedes [facility] [place] Start: 11-17-2021 End: 11-17-2021 ambulatory Shana Mercedes [employer] Other Start: 11-17-2021 Office outpatient vi sit 15 minutes Shana Mercedes [facility] [place] Start: 07-29-2021 End: 07-29-2021 ambulatory Shana Mercedes Other [employer] Other Start: 07-29-2021 Office outpatient vi sit 25 minutes Shana Mercedes [facility] Procedures Date Procedure Procedure Detail Performing Clinician Urine culture DO Shana horan Work Phone: Plan of Treatment Date Care Activity Detail Author Bacteria identified in Urine by Culture [facility] Work Phone: Comprehensive metabo lic 1999 panel - Serum or Plasma [facility] enter Comprehensive metabo lic 1999 panel - Serum or Plasma [facility] enter [facility] Immunizations Immunization Date Immunization Notes Care Provider Fa cility 05-19-2022 COVID-19 Moderna (BIvalent) Shana Mercedes Other [facility] 07-27-2021 COVID-19 Vaccine Mod maya - Documentation Purposes Only Shana Mercedes Other [facility] 12-11-2020 COVID-19 Vaccine Mod maya - Documentation Purposes Only Shana Mercedes Other [facility] 11-13-2020 COVID-19 Vaccine Mod maya - Documentation Purposes Only Shana Mercedes Other [facility] Payers Date Payer Category Payer Medicare [id number] 2021 Self-pay [id number] 1960 Unknown [id number] 2.16.84 [id number] 1960 Unknown [id number] 2.16.84 [id number] 1960 Unknown [id number] 2.16.84 [id number] 1960 Unknown [id number] 2.16.84 [id number] 1960 Unknown [id number] 2.16.8 [id number] 1960 Unknown [id number] 2.16.8 [id number] 1957 Medicare [id number] 2. [id number] 1957 Medicare [id number] Medicaid [place] [employer] [id number] Unknown [id number] 2.16.8 [id number] Unknown [id number] 2.16.8 [id number] Social History Date Type Detail Facility Unknown if ever smoked [employer] Other Sex Assigned At Sex Assigned At Bir th [employer] Other Start: 1960 Sex Assigned At Female F [facility] Start: 01-04-2024 End: 12-31-2024 Tobacco smoking status NHIS Never smoked tobacco (finding) [facility] Start: 10-01-2024 End: 12-31-2024 Sex Female (finding) [facility] Clinical Notes 07-29-2021 to 12-17-2024 Note Date & Type Note Facility 12-17-2024 Evaluation note Diagnosis Onset Date Resolution Left leg swelling acute December 172024 10:29am Edema acute December 31 9:07am Hypothyroidism acute December 9:07am Left leg swelling acute December 122024 9:07am Onychomycosis acute December 31, 2024 9:07am [facility] Work Phone: 1(663) 797-675401-20-2025 Evaluation note* Author Shana Mercedes [facility] Authored October 01, 2024 1 0:59am The above note written by __ _Chad Ruiz____ acting as human recorder, note dictated by Dr. Rosen .I performed the above HPI, ROS, and Examination. I formulated and dictated the treatment plan and was present for entire encounter. Shana Mercedes D.O. [facility] Work Phone: 1(148) 610-929711-05-2024 Evaluation note* Author Shana Mercedes [facility] Authored July 17, 2024 4 :35pm The above note written by __ _Chad Ruiz____ acting as human recorder, note dictated by Dr. Rosen .I performed the above HPI, ROS, and Examination. I formulated and dictated the treatment plan and was present for entire encounter. Shana Mercedes D.O. [facility] Work Phone: 1(777) 413-379004-24-2024 Evaluation note* Author Shana Mercedes [facility] Authored January 04, 2024 5:0 4pm The above note written by __ _Chad Ruiz____ acting as human recorder, note dictated by Dr. Rosen .I performed the above HPI, ROS, and Examination. I formulated and dictated the treatment plan and was present for entire encounter. Shana Mercedes D.O. [facility] Work Phone: 1(211) 125-148109-27-2023 Evaluation note* Encounter Date Diagnosis Assessment Notes Treatment Notes Treatment Clinical Notes May, Hip pain (ICD-10 - M25.559) right hip [employer] [facility] [employer] Other 05-31-2023 Evaluation note* Encounter Date Diagnosis Assessment Notes Treatment Notes Treatment Clinical Notes January, Shoulder pain, left (ICD-10 - M25.512) [employer] Other 05-31-2023 Evaluation note* Encounter Date Diagnosis [...] voices that she was told by Dr. Rogers not to return unless she has trouble breathing. She found a natural supplement called Easy Breathing so she has been using this. January, Other She takes Dehydrated Bee Pollen and this helps with her energy. [employer] Other 02-20-2023 Evaluation note* Encounter Date Diagnosis [...] in order to work on weight loss. [employer] Other 12-27-2022 Evaluation note* Encounter Date Diagnosis [...] Aug, Other 2:53 PM - 3:05 PM [employer] Other 12-01-2022 Evaluation note* Encounter Date Diagnosis Assessment Notes Treatment Notes Treatment Clinical Notes Aug, Hematuria (ICD-10 - R31.9) [employer] Other 11-29-2022 Evaluation note* Encounter Date Diagnosis [...] - J45.909) She does not see Dr. Rogers for one year. Jul, Asthma (ICD-10 - J45.909) She does not see Dr. Rogers for one year. Jul, Asthma (ICD-10 - J45.909) She does not see Dr. Rogers for one year. Jul, Asthma (ICD-10 - J45.909) She does not see Dr. Rogers for one year. Jul, Asthma (ICD-10 - J45.909) She does not see Dr. Rogers for one year. Jul, Asthma (ICD-10 - J45.909) She does not see Dr. Rogers for one year. [employer] Other 08-31-2022 Evaluation note* Encounter Date Diagnosis Assessment Notes Treatment Notes Treatment Clinical Notes Apr, Asthma (ICD-10 - J45.909) She saw Dr. Huynh [place] [address] Hart a inspector coated fabrics two years later (2018) but was supposed [...] her breathing. We discussed her seeing a inspector coated fabrics such as Dr. Rogers for evaluation. I do feel that the nodules need to be followed, and she is due to have scans repeated, all of this is something she can discuss with the inspector coated fabrics. She also feels that her inactivity contributes to her breathing issue, she has gained weight. She agrees to the referral to see Dr. Rogers. Apr, Lung nodules (ICD-10 - R91.8) left [...] side of her body without significant pain. 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 [employer] Other 03-08-2022 Evaluation note* Encounter Date Diagnosis [...] I did recommend that she see a supervisor quality control. She agrees. Will provide her with a phone number for dermatology. Nov, Other She had a heart cath done, there is some tenderness in the groin area and voices that the dog jumps on her lap and it still hurts. It was done six weeks ago. The area does not bleed. It can be normal for this to still be tender. 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 [employer] Other Evaluation noteNo [facility] [employer] Other Evaluation noteNo assessment information available [facility] Work Phone: Evaluation note* Diagnosis Onset Date Resolution Status Concussion acute Edema acute Fall acute Knee pain acute Leg pain, left acute Shoulder pain acute [facility] Work Phone: Evaluation note* Diagnosis Onset Date Resolution Status Cellulitis acute Edema acute Hypothyroidism acute Laceration acute [facility] Work Phone: Evaluation note* Diagnosis Onset Date Resolution Status Admit Date Body mass index [BMI] 50.0-5 9.9, adult acute April 16, 2025 7:59am Edema acute April 16 7:59am Hyperglycemia acute April 16, 2025 7:59am Hyperlipidemia acute April 7:59am Hypothyroidism acute April 7:59am Obesity, class 3 acute April 162024 7:59am Stress acute April 16 7:59am [facility] Work Phone: History general Narrative - [...] above surgical histo ry Hospitalization History [facility] - back pain - tore muscle 09/2015 [employer] Other Hisaold general Narrative - Reported* Type Description Date [...] above surgical histo ry Hospitalization History [facility] - back pain - tore muscle 09/2015 [employer] Other Reason for referral (narrative)No reason for referral [facility] Work [facility]: Summary Purpose Family History Relationship Condition Age [...] Recorded Date/ Time Advance Directives No November 23 7:05am Advance Directive Response Recorded Date/ Time Advance Directives No November 23 8:05am Advance Directive Response Recorded Date/ Time Advance Directives No July 09, 2024 8:47am Advance Directive Response Recorded Date/ Time Advance Directives No July 09, 2024 9:47am Reason for Referral Reason appt consult to scarlett kelly lt shoulder pain/possible injections Diagnosis 1 Shoulder pain, left (M25.512) Referral Organization [facility] Referring Provider First Name Shana Referring Provider Last Name Mago Referring Provider Specialty Family Nilesh to Referred Organization [facility] Referred Provider Anderson Hart Referred Address ,[place], [place],[address] Referred Provider Specialty Orthopedic S urgery Referral Priority Routine General Notes Beena Wooten 02/09/2023 04:05:16 PM > referral hard faxed to Dr Hart's office with visit note, xray report, med list and demographics. pt understands she will be contacted to schedule this appt. Reason appt pt needs cons ult to discuss uncontrolled asthma and lung nodules Diagnosis 1 Asthma (J45.909) Referral Organization [facility] Referring Provider First Name Shana Referring Provider Last Name Mago Referring Provider Specialty Family Nilesh to Referred Organization [facility] Referred Provider Cristine Rogers Referred Address [address], [place],[address] Referred Provider Specialty Pulmonary Scarlett brand Referral [...] Reason for Visit Cellulitis Edema Hypothyroidism Laceration Chief Complaint Admit Date evaluate leg July 17, 2024 3 :33pm recheck lt leg/cellulitis October 01, 2024 8:53am Reason for Visit Admit Date Cellulitis July 17, 2024 3 :33pm Edema July 17, 2024 3 :33pm Hypothyroidism July 17, 2024 3 :33pm Laceration July 17, 2024 3 :33pm Cellulitis October 01, 2024 8 :53am Edema October 01, 2024 8 :53am Hypothyroidism October 01, 2024 8 :53am Weight gain October 01, 2024 8 :53am Chief Complaint Admit Date recheck lt leg/cellulitis October 01, 2024 8:53am ref by Dr. Mercedes for venous sufficiency December 17, 2024 10:29am Reason for Visit Admit Date Cellulitis October 01, 2024 8 :53am Edema October 01, 2024 8 :53am Hypothyroidism October 01, 2024 8 :53am Weight gain October 01, 2024 8 :53am Chief Complaint Admit Date ref by Dr. Mercedes for venous sufficiency December 17, 2024 10:29am review thyroid lab December 31, 2024 9:0 7am Reason for Visit Admit Date Left leg swelling December 17, 2024 10:2 9am Edema December 31, 2024 9:0 7am Hypothyroidism December 31, 2024 9:0 7am Left leg swelling December 31, 2024 9:0 7am Onychomycosis December 31, 2024 9:0 7am Chief Complaint Admit Date review labs April 16, 2025 7:5 9am Reason for Visit Admit Date Body mass index [BMI] 50.0-59.9, adult A ug2024 7:59am Edema April 16, 2025 7:5 9am Hyperglycemia April 16, 2025 7:5 9am Hyperlipidemia April 16, 2025 7:5 9am Hypothyroidism April 16, 2025 7:5 9am Obesity, class 3 April 16, 2025 7:5 9am Stress April 16, 2025 7:5 9am Additional Source Comments INFORMATION SOURCE (unrecogn ized section and content) DATE CREATED AUTHOR 12/14/2019 [facility] DATE CREATED AUTHOR AUTHOR'S ORGANIZ ATION 08/22/2022 [facility] DATE CREATED AUTHOR AUTHOR'S ORGANIZ ATION 02/19/2023 [facility] DATE CREATED AUTHOR AUTHOR'S ORGANIZ ATION 12/30/2023 [facility] REASON FOR VISIT (unrecogniz ed section and content) review labclinicalpossible U TIreview labsClinical Acute Medicinediscuss breathingClinical Acute IllnessClinicalreview labscoughnasal congestion/sore throatClinicallt arm painhandicap placardrashletter/rt hip painRefills Care Teams (unrecognized sec tion and content) Team Status: Active Member Role Status Dates Shana Mercedes DO Primary Care Provider Active Team [...] 2024 End: February 13, 2024 Team Status: Active Member Role Status Miguel Mercedes DO Primary Care Provider Active S tart: September 06, 2024 Susan Hagen PA-C Attending Provider Active Start: September 06, 2024 Team Status: Inactive Member Role Status Miguel Mercedes DO Primary Care Provide r, Attending Provider Active Start: October 01, 2024 End: October 01, 2024 Team Status: Inactive Member Role Status Miguel Mercedes DO Primary Care Provider Active S tart: December 17, 2024 End: December 17, 2024 Rivas Dawkins MD Attending Provider Active S tart: December 17, 2024 End: December 17, 2024 Team Status: Inactive Member Role Status Miguel Mercedes DO Primary Care Provide r, Attending Provider Active Start: December 31, 2024 End: December 31, 2024 Team Status: Inactive Member Role Status Dates Shana Mercedes DO Primary Care Provider Active S tart: April 16, 2025 End: April 16, 2025 Shana Mercedes DO Attending Provider Active Star t: April 16, 2025 End: April 16, 2025 Goals (unrecognized section and content) Goals may [...] BE BASED ON THE PRIMARY CLINICAL RECORDS. [facility]. provides no warranty or guarantee of the accuracy or completeness of information in this document.
--- NOTE | 2025-04-29 18:01 | ED_ITS ---
HPI HPI - General Adult General Chief complaint: Urogenital-Female Stated complaint: HAVING PROBLEMS URINATING Time Seen by Provider: 04/29/25 17:30 Source: patient Mode of arrival: walk-in History of Present Illness HPI narrative: Patient is a 65-year-old female that presents to the emergency department with complaints of right-sided low back/flank pain that started on Tuesday. Patient denies any fall or trauma. She did have to leave work secondary to this pain and states that she laid around the rest of the day and had loss of appetite. She also describes chills that day but did not ever take her temperature. She states that she feels very dehydrated and has been trying to drink a lot of water but her mouth still feels very dry today. She denies any history of kidney stones. She has been urinating but states that she is having some burning with it and feels she is not fully evacuating all her urine. She denies chest pain, shortness of breath, abdominal pain, or midline back pain. She does take wild lettuce for pain at home, she denies need for pain medication here. She is going on a trip to [place] and wants to know what is going on. Related Data Home Medications ?Medication ?Instructions ?Recorded ?Confirmed albuterol sulfate 2.5 mg/3 mL 2.5 mg inhalation Q6H NM N 09/06/24 09/06/24 (0.083 %) solution for nebulization shortness of breat h or wheezing albuterol sulfate 90 mcg/actuation 2 inh inhalation Q4 H PRN shortness 09/06/24 09/06/24 aerosol inhaler of breath or wheezing furosemide 20 mg tablet 20 mg PO DAILY 09/06/2408/13 levothyroxine 100 mcg tablet 100 mcg PO DAILY 09/06/24 09/06/24 omeprazole 20 mg capsule,delayed 20 mg PO DAILY 09/06/24 release potassium chloride 10 mEq 20 meq PO DAILY 09/06/24 tablet,extended release(part/cryst) Previous Rx's ?Medication ?Instructions ?Recorded oxycodone 5 mg tablet 5 mg PO Q6H PRN pain 3 days #12 01/02/24 tabs cephalexin 500 mg capsule 500 mg PO Q8H 10 days #30 ca ps 09/06/24 sulfamethoxazole 800 1 tab PO BID 10 days #20 tab s 09/06/24 mg-trimethoprim 160 mg tablet (Bactrim DS) cephalexin 500 mg capsule 500 mg PO BID 7 days #14 cap s 04/29/25 Allergies Allergy/AdvReac Type Severity Reaction Status Date / Time pamabrom (From [facility]) Allergy Severe Unknown Verified 09/06/24 12:51 Penicillins Allergy Unknown Unknown Verified 09/06/24 12:51 Opioid HPI Opioid Management Most Recent Opioid Data: Last Pain Scale 5 Today, 18:13 Review of Systems ROS Status of ROS 10 or more systems reviewed and unremark able except as noted in history and below PFSH PFSH Social History Little interest or pleasure in doing things: not at all Feeling down, depressed, or hopeless: not at all Exam Narrative Exam Narrative: General: No distress, age-appropriate Skin: Warm, dry, no pallor. No rash. Head: Normocephalic, atraumatic. Neck: Supple, non-tender. Eye: Pupils are equal, round and EOMI. No scleral icterus. Ears, Nose, Mouth, and Throat: No nasal mucosal hypertrophy. Oral mucosa is moist, no posterior oropharynx erythema, uvula is mid-line Cardiovascular: Regular Rate and Rhythm without murmur, gallop or rub. Respiratory: No accessory muscle use or respiratory distress. Lungs are clear to auscultation, no wheezing, rales or rhonchi Chest Wall: no tenderness Back: No midline thoracic or lumbar vertebral tenderness. Right CVA tenderness with palpation. Musculoskeletal: Full ROM of all extremities, no calf or popliteal tenderness GI: Abdomen is soft, non-distended, non tender to palpation. No masses appreciated. No rebound, guarding, or rigidity noted. Neurological: A&O x4. No cranial nerve dysfunction observed. No truncal ataxia. Moves all extremities. Sensation intact. Psychiatric: Cooperative and interactive. Normal mood and affect. Constitutional Vital Signs, click to edit/add: Last Vital Signs Temp 98.2 F 04/29/25 17:12 Pulse 82 04/29/25 17:12 Resp 20 04/29/25 17:12 BP 152/97 H 04/29/25 17:12 Pulse Ox 97 04/29/25 17:12 O2 Del Method Room Air 04/29/25 17:12 Course Reevaluation(s) Reevaluation #1: Patient updated with lab results and CT results. No kidney stone seen. I discussed with her that given her urinary symptoms and her UA with some bacteria and WBCs and occult blood I am going to send her home with a prescription for Keflex. We discussed that she does have cholelithiasis and an incidental finding of left lower lobe nodule. She states that she was aware of this nodule and has seen a clinic receptionist. Time: 20:46 Vital Signs Vital signs: Vital Signs Temperature 98.2 F 04/29/25 17:12 Pulse Rate 82 04/29/25 17:12 Respiratory Rate 20 04/29/25 17:12 Blood Pressure 152/97 H 04/29/25 17:12 Pulse Oximetry 97 04/29/25 17:12 Oxygen Delivery Method Room Air 04/29/25 17:12 Temperature 98.2 F 04/29/25 17:12 Pulse Rate 82 04/29/25 17:12 Respiratory Rate 20 04/29/25 17:12 Blood Pressure 152/97 H 04/29/25 17:12 Pulse Oximetry 97 04/29/25 17:12 Oxygen Delivery Method Room Air 04/29/25 17:12 Medical Decision Making MDM Narrative Medical decision making narrative: 65-year-old female that presents to the ER with complaints of 2 days of right flank pain and dysuria and urinary retention. She does not have any history of kidney stones. Bladder scan was performed and only 80 mL was noted. CBC, BMP, UA, and CT ab/pel without contrast was ordered. IV placed and 1 L NS started. Patient denies need for any pain medication here. Patient was able to urinate without issue after the liter given. She denies any symptoms with urination at that time as well. Vital stable during patient's course in ED. WBC 9.8, patient afebrile, BMP unremarkable, UA with large occult blood, trace leukocyte esterase, urine WBC use and urine bacteria. I discussed patient's CT results with her as below, no kidney stone visualized, will discharge her home with Keflex given her UA results. She will follow-up with her PCP this week. Patient agreeable to all of the above. Patient's pain was controlled and patient was discharged home in good condition. Differential Diagnosis Differential Diagnosis: Kidney stone, UTI Lab Data Lab results reviewed: Yes I reviewed the patient's lab results Labs: Lab Results 04/29/25 04/29/25 Range/Units 18:20 19:36 WBC 9.8 (4.0-11.0) 10^3/uL RBC 4.83 (4.20-5.40) 10^6/uL Hgb 13.5 (12.0-16.0) g/dL Hct 41.8 (36.0-48.0) % MCV 86.5 (81.0-99.0) fL MCH 28.0 (26.7-34.0) pg MCHC 32.3 (29.9-35.2) g/dL RDW 14.0 (11.0-15.0) % Plt Count 267 (150-450) 10^3/uL MPV 9.3 L (9.5-13.5) fL Neut % (Auto) 72.5 (43.0-75.0) % Lymph % (Auto) 18.2 L (20.5-60.0) % Reeves % (Auto) 6.8 (1.7-12.0) % Eos % (Auto) 1.6 (0.9-7.0) % Baso % (Auto) 0.7 (0.2-2.0) % Neut # (Auto) 7.1 H (1.4-6.5) 10^3/uL Lymph # (Auto) 1.8 (1.2-3.8) 10^3/uL Reeves # (Auto) 0.7 (0.3-0.8) 10^3/uL Eos # (Auto) 0.2 (0.0-0.7) 10^3/uL Baso # (Auto) 0.1 (0.0-0.1) 10^3/uL Abs Immat Gran (auto) 0.02 (0.00-0.03) 10^3/uL Imm/Tot Granulo (auto) 0.2 (0.0-0.5) % Sodium 142 (136-145) mmol/L Potassium 3.6 (3.5-5.1) mmol/L Chloride 107 (98-107) mmol/L Carbon Dioxide 27.8 (21.0-32.0) mmol/L Anion Gap 10.8 BUN 12.0 (7.0-18.0) mg/dL Creatinine 0.70 (0.55-1.02) mg/dL Est GFR ( Amer) >60 (>=60 mL/min/1.73m^2) Est GFR (Non-Af Amer) >60 (>=60 mL/min/1.73m^2) BUN/Creatinine Ratio 17.1 Glucose 124 H (74-106) mg/dL Calcium 9.3 (8.5-10.1) mg/dL Urine Color Yellow (YELLOW) Urine Clarity Clear (CLEAR) Urine pH 5.5 (5.0-9.0) Ur Specific Williams 1.025 (1.005-1.025) Urine Protein Trace (NEG/TRACE) mg/dL Urine Glucose (UA) Negative (NEGATIVE) mg/dL Urine Ketones Trace A (NEGATIVE) mg/dL Urine Occult Blood Large A (NEGATIVE) Urine Nitrite Negative (NEGATIVE) Urine Bilirubin Negative (NEGATIVE) Urine Urobilinogen 0.2 (0.2-1.0) EU/dL Ur Leukocyte Esterase Trace A (NEGATIVE) Urine RBC 10-20 A (0-2) #/HPF Urine WBC 5-10 A (NONE SEEN) #/HPF Ur Squamous Epith Cells Few A (NONE/RARE) #/LPF Urine Crystals None seen (None Seen) #/HPF Urine Bacteria Trace A (NONE SEEN) #/HPF Urine Casts None seen (NONE SEEN) #/LPF Urine Mucus None seen (NONE SEEN) Ur Culture Indicated? [place]-[facility] [place] scan - abdomen: Attestation: I have reviewed the pertinent imaging results. Radiologist's impression: ITS Impressions Abdomen/Pelvis CT 04/29/25 18:08 IMPRESSION: No acute findings. No nephrolithiasis or obstructive uropathy. Cholelithiasis. Developing incompletely visualized 1.9 cm the basilar left lower lobe lung nodule. Consider PET CT imaging to further assess. Impression dictated by: Rivas Benitez M.D. 04/29/2025 7:26 PM Dictation Location: [facility] Electronically authenticated by: [id number] Y Date: 04/29/2025 19:26 Discharge Plan Discharge Chief Complaint: Urogenital-Female Clinical Impression: Urinary tract infection Patient Disposition: Home, Self-Care Time of Disposition Decision: 20:20 Condition: Good Mode of Transportation: Private Vehicle Prescriptions / Home Meds: New cephalexin 500 mg capsule 500 mg PO BID 7 Days Qty: 14 0RF No Action oxycodone 5 mg tablet 5 mg PO Q6H PRN (Reason: pain) 3 Days Qty: 12 0RF albuterol sulfate 2.5 mg /3 mL (0.083 %) solution for nebulization 2.5 mg inhalation Q6H PRN (Reason: shortness of breath or wheezing) albuterol sulfate 90 mcg/actuation HFA aerosol inhaler 2 inh INHALATION Q4H PRN (Reason: shortness of breath or wheezing) furosemide 20 mg tablet 20 mg PO DAILY levothyroxine 100 mcg tablet 100 mcg PO DAILY omeprazole 20 mg capsule,delayed release(DR/EC) 20 mg PO DAILY potassium chloride 10 mEq tablet,ER particles/crystals 20 meq PO DAILY sulfamethoxazole-trimethoprim [Bactrim DS] 800-160 mg tablet 1 tab PO BID 10 Days Qty: 20 0RF cephalexin 500 mg capsule 500 mg PO Q8H 10 Days Qty: 30 0RF Print Language: Liberian Instructions: Urinary Tract Infection in Women (DC) Additional Instructions: Take antibiotics to completion even if symptoms resolve. Follow-up with your primary care physician this week. You can take [id number]-anoqyji pain medications as needed. If you experience any new or worsening symptoms return to the emergency department for evaluation. Referrals: SHANA MERCEDES [Primary Care Provider, Family Practice] - 1 week
--- NOTE | 2025-04-29 18:08 | CT_ITS ---
The [address] [address] Patient Name: MIGUEL ANGEL CAMERON MRN: [id number] date: 1960 Sex: F Assigned Patient Location: ER Current Patient Location: ER Accession/Order Number: [id number] Exam Date: 04/29/2025 19:20 Report Date: 04/29/2025 19:26 At the request of: LAURIE AMBROCIO Procedure: CT abdomen pelvis wo con CT Abdomen and Pelvis withoutcontrast TECHNIQUE: Axial imaging with 2-D reconstruction. . The CT exam was performed using one or more the following dose reduction techniques: Automated exposure control, adjustment of the MA and/or Kv according to patient size, or use of the iterative reconstruction technique. COMPARISON: 07/08/2022 History: Right flank pain LIMITATIONS: None LOWER THORAX small hiatal hernia. Developing 1.9 cm left lower lobe and basilar lung nodule. LIVER: Unremarkable GALLBLADDER: Cholelithiasis identified. BILE DUCTS: No dilatation SPLEEN: Unremarkable PANCREAS: Unremarkable ADRENAL GLANDS: Unremarkable KIDNEYS:Unremarkable AORTA: No abdominal aortic aneurysm identified. RETROPERITONEUM: No significant retroperitoneal abnormalities identified. MESENTERY:Unremarkable STOMACH:Unremarkable SMALL BOWEL: The small bowel loops are nondistended. APPENDIX: The appendix is normal. COLON: Unremarkable URINARY BLADDER: Urinary bladder is unremarkable. REPRODUCTIVE SYSTEM: Reproductive structures are unremarkable. PNEUMOPERITONEUM: None PERITONEAL FLUID:None BONY STRUCTURES: Degenerative change ABDOMINAL WALL: Unremarkable CT/CT abdomen pelvis wo con IMPRESSION: No acute findings. No nephrolithiasis or obstructive uropathy. Cholelithiasis. Developing incompletely visualized 1.9 cm the basilar left lower lobe lung nodule. Consider PET CT imaging to further assess. Impression dictated by: Rivas Benitez M.D. 04/29/2025 7:26 PM Dictation Location: [employer] Electronically authenticated by: [id number] Y Date: 04/29/2025 19:26
[2025-04-29 18:42] LABS: Hematocrit 41.8 % (36.0-48.0); Hemoglobin 13.5 g/dL (12.0-16.0); Immature Granulocytes Abs Auto 0.02 10^3/uL (0.00-0.03); Immature Granulocytes Pct Auto 0.2 % (0.0-0.5); Lymphocytes Absolute Auto 1.8 10^3/uL (1.2-3.8); Mean Corpuscular HGB Conc 32.3 g/dL (29.9-35.2); Mean Corpuscular Hemoglobin 28.0 pg (26.7-34.0); Mean Corpuscular Volume 86.5 fL (81.0-99.0); Platelet Count 267 10^3/uL (150-450); Red Blood Count 4.83 10^6/uL (4.20-5.40); White Blood Count 9.8 10^3/uL (4.0-11.0)
[2025-04-29] MEDS: 0.9 % SODIUM CHLORIDE 1,000 ML 1000 ML IV (18:48)
[2025-04-29 19:02] LABS: Anion Gap 10.8; Blood Urea Nitrogen 12.0 mg/dL (7.0-18.0); Calcium 9.3 mg/dL (8.5-10.1); Carbon Dioxide 27.8 mmol/L (21.0-32.0); Chloride 107 mmol/L (98-107); Estimated GFR (African America >60 (>=60 mL/min/1.73m^2); Estimated GFR (Non-African Ame >60 (>=60 mL/min/1.73m^2); Glucose 124 mg/dL (74-106); Potassium 3.6 mmol/L (3.5-5.1); Sodium 142 mmol/L (136-145)
[2025-04-29 19:45] LABS: Glucose Urine UA NEGATIVE (NEGATIVE)
[2025-04-29 19:51] LABS: Cast Seen? NONE SEEN #/LPF (NONE SEEN); Crystals Seen? None Seen #/HPF (None Seen); Urine Culture Indicated YES-FRMC
== END 2025-04-29 20:57 | disposition home or self-care (01) ==
PROVIDERS: Physician Assistant; Emergency Provider Emergency Medicine; PCP Family Medicine
DX: N39.0 Urinary tract infection, site not specified (principal); K80.20 Calculus of gallbladder without cholecystitis without obstruction; R91.1 Solitary pulmonary nodule; R33.9 Retention of urine, unspecified
CPT/HCPCS: 36415; 51798; 74176; 80048; 81001; 85025; 87086; 99285